=== PATIENT | female | born 1950 | race Caucasian/White ===

== ENCOUNTER → 2017-03-11 | Outpatient (CLI) | payer OTHER ==
--- NOTE | 2017-03-17 13:16 | MG ---
HISTORY: SCREENING Comparison: February 19, 2015 and February 26, 2016 FINDINGS: Bilateral CC and MLO projections of the right and left breast were obtained. Scattered fibroglandula r tissue is seen to be present without significant interval change. No suspicious architectural dist ortion, mass or clustered microcalcifications can be observed to suggest malignancy. No skin thicken ing or nipple retraction is appreciated. No pathological lymphadenopathy can be identified. Benign- appearing calcifications are noted within the right and left breast. IMPRESSION: NO RADIOGRAPHIC EVIDENCE OF MALIGNANCY. ACR CATEGORY 2 - benign findings. FOLLOW-UP EXAM 1 YEAR. Diagnostic CAD was utilized and reviewed. * 0 (ZERO) - ASSESSMENT INCOMPLETE; ADDITIONAL IMAGING IS NEEDED. * 1/1 (ONE) - NEGATIVE. * 2/II (TWO) - BENIGN FINDINGS. * 3/III (THREE) - PROBABLY BENIGN FINDING; SHORT INTERVAL FOLLOW-UP SUGGESTED. * 4/IV (FOUR) - SUSPICIOUS ABNORMALITY; BIOPSY SHOULD BE CONSIDERED. * 5/V (FIVE) - HIGHLY SUSPICIOUS OF MALIGNANCY; BIOPSY SHOULD BE PERFORMED. A NEGATIVE X-RAY REPORT SHOULD NOT DELAY BIOPSY IF A DOMINANT OR CLINICALLY SUSPICIOUS MASS IS PRESENT; 4 TO 8 PERCENT OF CANCERS ARE NOT IDENTIFIED BY X-RAY. A NEGA TIVE REPORT MAY REINFORCE THE CLINICAL IMPRESSION. ADENOSIS AND DENSE BREASTS MAY OBSCURE AN UNDERLY ING NEOPLASM. Reported By:
== END ==
LOC: RAD 09:34
PROVIDERS: ATTEND Obstetrics & Gynecology
DX: Z12.31 Encounter for screening mammogram for malignant neoplasm of breast (principal)
CPT/HCPCS: 77067

== ENCOUNTER 2017-10-14 21:57 | Emergency (ER) | payer OTHER ==
[2017-10-14 22:05] VITALS: BMI 32.5
--- NOTE | 2017-10-14 22:37 | ED.ABDFE ---
HPI - Time seen Time seen: 10:35 - PCP Primary Care Physician: Sylvain RICO - Complaint Chief Complaint Doctors Comments: I agree with statement as written. Chief Complaint:: EPIGASTRIC PAIN, N/V FOR LAST MONTH, JUST GETTING WORSE. HAS SEEN PCP HAD SONOGRAM OF GALL BLADDER, IT WAS NEGATIVE. EVERYTHING I EAT JUST KILLS ME. - Source History Provided: Patient - Mode of arrival Mode of Arrival: Ambulatory - Timing Onset of Chief Complaint: 09/15/17 PMH - PMH Past Medical History: Yes Past Medical History: Coronary Artery Disease, Diabetes, Dyslipidemia, Hypertension Past Surgical History: Yes Surgical History: Angioplasty/Stents, Hysterectomy Past Surgical History Comment: BACK SURGERY, BREAST [id number] - Family History History of Family Medical Conditions: Yes Family Medical History: Diabetes Mellitus, [place], Coronary Artery Disease, Hypertension - Social History Type of Tobacco Use: Cigarettes Alcohol Use: None Do you use any recreational Drugs:: No Lives With: Spouse Lives Where: Home - infectious screening Have you traveled outside the country in the last 6 months?: No Isolation: Standard ROS - Review of Systems Eyes: No Symptoms Reported ENTM: No Symptoms Reported Respiratoy: No Symptoms Reported Cardiovascular: No Symptoms Reported Gastrointestinal/Abdominal: No Symptoms Reported Genitourinary: No Symptoms Reported Neurological: No Symptoms Reported Musculoskeletal: No Symptoms Reported Integumentary: No Symptoms Reported Hematologic/Lymphatic: No Symptoms Reported Endocrine: No Symptoms Reported Psychiatric: No Symptoms Reported All Other Systems: Reviewed and Negative PE - Vital Signs Vitals: Temperature 98.3 F Pulse Rate 80 Respiratory Rate 18 Blood Pressure 172/73 O2 Sat by Pulse Oximetry 95 - General Limitations: No Limitations General Appearance: Alert, In No Apparent Distress - Head Head Exam: Normal Inspection, Atraumatic - Eyes Eye exam: Normal Appearance, PERRL, EOMI - ENT ENT Exam: Normal Exam - Neck Neck Exam: Normal Inspection, Full ROM - Chest Chest Inspection: Normal Inspection, Symmetric Chest Wall Rise - Respiratory Respiratory Exam: Normal Lung Sounds Bilat Respiratory Exam: Bilateral Clear to Auscultation - Cardiovascular Cardiovascular Exam: Regular Rate, Normal Rhythm - Abdominal Exam Abdominal Exam: Normal Inspection, Normal Bowel Sounds Abdominal Tenderness: negative: RUQ, RLQ, LUQ, LLQ, Epigastrium, Suprapubic, Diffuse, Mild, Moderate, Severe, Other - Rectal Rectal Exam: Deferred - Back Back Exam: Normal Inspection - Extremeties Extremities Exam: Normal Inspection, Full ROM - Neurologic Neurological Exam: Alert, Oriented X3, CN II-XII Intact - Psychiatric Psychiatric Exam: Normal Affect - Skin Skin Exam: Warm, Dry, Intact Course - Reevaluation 1st: Unchanged ROR - Labs Reviewed Laboratory Results Reviewed?: Yes (H pylori positive) Result Diagrams: 10/14/17 23:00 10/14/17 23:00 Laboratory: WBC 13.9 X10^3/uL (3.6-10.0) H 10/14/17 23:00 RBC 4.81 X10^6/uL (3.5-5.4) 10/14/17 23:00 Hgb 13.4 g/dL (12.0-16.0) 10/14/17 23:00 Hct 39.8 % (36.0-47.0) 10/14/17 23:00 MCV 82.7 fL (80.0-100.0) 10/14/17 23:00 MCH 27.9 pg (27.0-34.0) 10/14/17 23:00 MCHC 33.7 g/dL (33.0-35.0) 10/14/17 23:00 RDW 16.9 % (11.6-16.5) H 10/14/17 23:00 Plt Count 374 X10^3/uL (150.0-450.0) 10/14/17 23:00 MPV 7.1 fL (7.4-11.0) L 10/14/17 23:00 Neut % (Auto) 75.6 % (42.0-75.0) H 10/14/17 23:00 Lymph % (Auto) 17.4 % (21.0-51.0) L 10/14/17 23:00 [place] % (Auto) 6.1 % (0.0-13.0) 10/14/17 23:00 Eos % (Auto) 0.2 % (0.9-2.9) L 10/14/17 23:00 Baso % (Auto) 0.7 % (0.2-1.0) 10/14/17 23:00 Neut # (Auto) 10.5 x10^3/uL (2.2-4.8) H 10/14/17 23:00 Lymph # (Auto) 2.4 X10^3/uL (1.3-2.9) 10/14/17 23:00 [place] # (Auto) 0.9 x10^3/uL (0.3-0.8) H 10/14/17 23:00 Eos # (Auto) 0.0 x10^3/uL (0.0-0.2) 10/14/17 23:00 Baso # (Auto) 0.1 X10^3/uL (0.0-0.1) 10/14/17 23:00 Absolute Nucleated RBC 0.0 /100WBC 10/14/17 23:00 Sodium 140 mmol/L (136-145) 10/14/17 23:00 Corrected Sodium 142 mmol/L (136-145) 10/14/17 23:00 Potassium 4.1 mmol/L (3.5-5.1) 10/14/17 23:00 Chloride 101 mmol/L (98-107) 10/14/17 23:00 Carbon Dioxide 28.0 mmol/L (21-32) 10/14/17 23:00 BUN 19 mg/dL (7-18) H 10/14/17 23:00 Creatinine 1.15 mg/dL (0.55-1.02) H 10/14/17 23:00 Est GFR (MDRD) Af Amer > 60 (>60) 10/14/17 23:00 Est GFR (MDRD) Non-Af 50 (>60) L 10/14/17 23:00 Glucose 166 mg/dL (65-99) H 10/14/17 23:00 Hemoglobin A1c 6.2 % 10/14/17 23:00 Calcium 8.6 mg/dL (8.5-10.1) 10/14/17 23:00 Corrected Calcium TNP 10/14/17 23:00 Total Bilirubin 0.50 mg/dL (0.2-1.0) 10/14/17 23:00 AST 24 Units/L (15-37) 10/14/17 23:00 ALT 44 Units/L (12-78) 10/14/17 23:00 Alkaline Phosphatase 73 Units/L (46-116) 10/14/17 23:00 C-Reactive Protein 4.50 mg/L (0-3.0) H 10/14/17 23:00 Total Protein 8.5 g/dL (6.4-8.2) H 10/14/17 23:00 Albumin 3.9 g/dL (3.4-5.0) 10/14/17 23:00 Globulin 4.6 g/dL (2.5-4.5) H 10/14/17 23:00 Albumin/Globulin Ratio 0.8 Ratio (1.1-2.1) L 10/14/17 23:00 Amylase 59 Units/L (25-115) 10/14/17 23:00 Lipase 119 Units/L (73-393) 10/14/17 23:00 H. pylori IgG Antibody Positive (NEGATIVE) A 10/14/17 23:00 - XRAY XRAY Interpreted by: Radiologist (Acute Abdominal series: The lungs are clear without consolidation,effusion or penumothorax. The cardiac and mediastinal contours are within normal limits. Flat plate and upright evaluation of the abdomen demonstrates a normal bowel gas pattern. No gross free intraperitoneal air. Approximate 3mm calcification overlies the left renal shadow suggestive of a nonobstructing stone. There is surgical material seen in the upper abdomen suggestive of vascular coils. There a degenerative changes of the spine and pelvis.. No acute cardipulmonary disease, no evidence of acute abdominal pathology, a 3mm calcification overlying the left renal yuen suggesting a nonobstructing stone.) - Diagnosis Discharge Problem: Helicobacter pylori gastritis, non obstructing left renal stone - Discharge Plan Condition: Stable - Follow ups/Referrals Follow ups/Referrals: LEANDRA BEAULIEU [Primary Care Provider] - 3 days - Instructions
[2017-10-14] MEDS ORDERED: BENTYL I.M. INJ 10 MG IM ONE ×2 (22:46→22:48)
--- NOTE | 2017-10-14 23:03 | RAD ---
HISTORY: Epigastric pain, nausea and vomiting Study: Acute abdominal series Comparison: None Findings: The lungs are clear without consolidation, effusion or pneumothorax. The cardiac and mediastinal con tours are within normal limits. Flat plate and upright evaluation of the abdomen demonstrates a normal bowel gas pattern. No gross fr ee intraperitoneal air. Approximate 3 mm calcification overlies the left renal shadow suggestive of a nonobstructing stone. There is surgical material seen in the upper abdomen suggestive of vascular co ils. There are degenerative changes of the spine and pelvis. IMPRESSION: 1. No acute cardiopulmonary disease. 2. No evidence of acute abdominal pathology. 3. 3 mm calcification overlying the left renal shadow suggesting a nonobstructing stone. Reported By:
[2017-10-14 23:10] LABS: BASOPHILS # (AUTO) 0.1 X10^3/uL (0.0-0.1); BASOPHILS % (AUTO) 0.7 % (0.2-1.0); EOSINOPHILS % (AUTO) 0.2 % (0.9-2.9); HEMATOCRIT 39.8 % (36.0-47.0); HEMOGLOBIN 13.4 g/dL (12.0-16.0); LYMPHOCYTES # (AUTO) 2.4 X10^3/uL (1.3-2.9); LYMPHOCYTES % (AUTO) 17.4 % (21.0-51.0); MEAN CORPUSCULAR HEMOGLOBIN 27.9 pg (27.0-34.0); MEAN CORPUSCULAR HGB CONC 33.7 g/dL (33.0-35.0); MEAN CORPUSCULAR VOLUME 82.7 fL (80.0-100.0); MEAN PLATELET VOLUME 7.1 fL (7.4-11.0); MONOCYTES # (AUTO) 0.9 x10^3/uL (0.3-0.8); MONOCYTES % (AUTO) 6.1 % (0.0-13.0); NEUTROPHILS # (AUTO) 10.5 x10^3/uL (2.2-4.8); NEUTROPHILS % (AUTO) 75.6 % (42.0-75.0); PLATELET COUNT 374 X10^3/uL (150.0-450.0); RED BLOOD COUNT 4.81 X10^6/uL (3.5-5.4); RED CELL DISTRIBUTION WIDTH 16.9 % (11.6-16.5); WHITE BLOOD COUNT 13.9 X10^3/uL (3.6-10.0)
[2017-10-14 23:22] LABS: ALANINE AMINOTRANSFERASE 44 Units/L (12-78); ALBUMIN 3.9 g/dL (3.4-5.0); ALKALINE PHOSPHATASE 73 Units/L (46-116); AMYLASE 59 Units/L (25-115); ASPARTATE AMINO TRANSFERASE 24 Units/L (15-37); BLOOD UREA NITROGEN 19 mg/dL (7-18); CALCIUM 8.6 mg/dL (8.5-10.1); CHLORIDE 101 mmol/L (98-107); COR NA(FOR HYPERGLY) 142 mmol/L (136-145); CREATININE 1.15 mg/dL (0.55-1.02); LIPASE 119 Units/L (73-393); SODIUM 140 mmol/L (136-145); TOTAL PROTEIN 8.5 g/dL (6.4-8.2); eGFR BLACK RACES > 60 (>60); eGFR NON BLACK RACES 50 (>60)
[2017-10-15 00:02] VITALS: BP 136/72
== END 2017-10-15 00:03 | disposition home or self-care (01) ==
LOC: ER 22:09
DX: N20.0 Calculus of kidney (principal); B96.81 Helicobacter pylori [H. pylori] as the cause of diseases classified elsewhere; R79.82 Elevated C-reactive protein (CRP)
CPT/HCPCS: 36415; 74022; 80053; 82150; 83036; 83690; 85025; 86140; 86677; 96372; 99283; J0500

== ENCOUNTER 2018-08-30 10:18 | Observation (INO) ==
[2018-08-30] MEDS ORDERED: HumuLIN R SUBCUT PRN (11:33)
[2018-08-30 12:05] LABS: BASOPHILS # (AUTO) 0.1 X10^3/uL (0.0-0.1); EOSINOPHILS # (AUTO) 0.4 x10^3/uL (0.0-0.2); EOSINOPHILS % (AUTO) 4.7 % (0.9-2.9); HEMOGLOBIN 7.3 g/dL (12.0-16.0); LYMPHOCYTES # (AUTO) 2.4 X10^3/uL (1.3-2.9); LYMPHOCYTES % (AUTO) 24.8 % (21.0-51.0); MEAN CORPUSCULAR HEMOGLOBIN 25.7 pg (27.0-34.0); MEAN CORPUSCULAR HGB CONC 33.3 g/dL (33.0-35.0); MEAN CORPUSCULAR VOLUME 77.2 fL (80.0-100.0); MEAN PLATELET VOLUME 7.2 fL (7.4-11.0); MONOCYTES # (AUTO) 0.6 x10^3/uL (0.3-0.8); MONOCYTES % (AUTO) 6.1 % (0.0-13.0); NEUTROPHILS % (AUTO) 63.4 % (42.0-75.0); PLATELET COUNT 279 X10^3/uL (150.0-450.0); RED BLOOD COUNT 2.85 X10^6/uL (3.5-5.4); RED CELL DISTRIBUTION WIDTH 19.2 % (11.6-16.5); WHITE BLOOD COUNT 9.5 X10^3/uL (3.6-10.0)
[2018-08-30 12:26] LABS: ALANINE AMINOTRANSFERASE 18 Units/L (12-78); ALBUMIN 3.1 g/dL (3.4-5.0); ALKALINE PHOSPHATASE 50 Units/L (46-116); ASPARTATE AMINO TRANSFERASE 12 Units/L (15-37); BLOOD UREA NITROGEN 38 mg/dL (7-18); CALCIUM 8.8 mg/dL (8.5-10.1); CARBON DIOXIDE 28.1 mmol/L (21-32); CHLORIDE 101 mmol/L (98-107); COR CA(FOR HYPOALB) 9.5 mg/dL (8.5-10.1); COR NA(FOR HYPERGLY) 139 mmol/L (136-145); CREATINE KINASE 25 Units/L (26-192); CREATINE KINASE MB < 1.0 ng/mL (0-4.0); CREATININE 1.38 mg/dL (0.55-1.02); SODIUM 138 mmol/L (136-145); TOTAL PROTEIN 6.7 g/dL (6.4-8.2); TROPONIN I < 0.02 ng/mL (0-1.5); eGFR NON BLACK RACES 40 (>60)
[2018-08-30 12:27] LABS: BILIRUBIN,URINE NEGATIVE (NEGATIVE); BLOOD/HEMOGLOBIN,URINE NEGATIVE (NEGATIVE); GLUCOSE, URINE NEGATIVE (NEGATIVE); KETONES,URINE NEGATIVE (NEGATIVE); LEUKOCYTE ESTERASE ,URINE NEGATIVE (NEGATIVE); NITRITES,URINE NEGATIVE (NEGATIVE); PROTEIN,URINE NEGATIVE (NEGATIVE); UROBILINOGEN,URINE NORMAL (NORMAL)
[2018-08-30 12:30] LABS: HYPOCHROMASIA 1+; PLATELET MORPHOLOGY COMMENT NORMAL (NORMAL)
[2018-08-30 12:33] LABS: APPEARANCE,URINE CLEAR (CLEAR); COLOR,URINE YELLOW (YELLOW)
[2018-08-30] MEDS: NS 1000 ML 1,000 ML IV SCH (13:22)
[2018-08-30] MEDS: PEPCID 20 MG IV PREMIX* 20 MG/50 ML BAG IV SCH ×2 (13:22→22:22)
[2018-08-30] MEDS ORDERED: NS 500 ML IV 500 ML IV ONE (13:42)
--- NOTE | 2018-08-30 14:16 | RAD ---
HISTORY: Chest pain Study: Single-view chest Comparison: 10/14/[address] of the chest done 06/06/2018. Findings: Trachea is midline. Heart size is normal. There is atherosclerotic calcification and uncoiling aortic arch. Mild hyperinflation of the lungs is seen with stable increased interstitial markings bilaterally. Likely mild COPD. No infiltrate, CHF, pleural fluid or pneumothorax is seen. A few small calcified granulomas are present involving the lungs bilaterally as well as the right lung apex. Osseous structures are intact. IMPRESSION: Findings likely representing mild COPD. Of acute or active disease. Reported By:
[2018-08-30 15:09] VITALS: BMI 28.1
[2018-08-30 15:18] LABS: CKMB % 3.9 % (<4); CREATINE KINASE 26 Units/L (26-192); CREATINE KINASE MB < 1.0 ng/mL (0-4.0); TROPONIN I < 0.02 ng/mL (0-1.5)
[2018-08-30] MEDS: TYLENOL 325 MG TAB PO PRN (15:21)
[2018-08-30] MEDS: BENADRYL INJ 50 MG VIAL IVP PRN (15:22)
[2018-08-30] MEDS ORDERED: NS 250 ML IV 250 ML IV ONE (19:31)
[2018-08-30 20:02] LABS: CKMB % 4.2 % (<4); CREATINE KINASE 24 Units/L (26-192); CREATINE KINASE MB < 1.0 ng/mL (0-4.0); TROPONIN I < 0.02 ng/mL (0-1.5)
[2018-08-30] MEDS: SNACK - Diabetic Appropriate PO SCH (20:05)
[2018-08-31] MEDS: NS 1000 ML 1,000 ML IV SCH ×4 (00:38→21:21)
[2018-08-31 00:54] LABS: HEMATOCRIT 26.4 % (36.0-47.0); HEMOGLOBIN 8.7 g/dL (12.0-16.0)
[2018-08-31 05:25] LABS: BASOPHILS # (AUTO) 0.1 X10^3/uL (0.0-0.1); BASOPHILS % (AUTO) 1.1 % (0.2-1.0); EOSINOPHILS # (AUTO) 0.5 x10^3/uL (0.0-0.2); EOSINOPHILS % (AUTO) 7.4 % (0.9-2.9); HEMATOCRIT 26.3 % (36.0-47.0); HEMOGLOBIN 8.6 g/dL (12.0-16.0); LYMPHOCYTES # (AUTO) 2.1 X10^3/uL (1.3-2.9); LYMPHOCYTES % (AUTO) 29.6 % (21.0-51.0); MEAN CORPUSCULAR HEMOGLOBIN 27.6 pg (27.0-34.0); MEAN CORPUSCULAR HGB CONC 32.8 g/dL (33.0-35.0); MEAN CORPUSCULAR VOLUME 84.1 fL (80.0-100.0); MEAN PLATELET VOLUME 7.3 fL (7.4-11.0); MONOCYTES # (AUTO) 0.6 x10^3/uL (0.3-0.8); MONOCYTES % (AUTO) 8.5 % (0.0-13.0); NEUTROPHILS # (AUTO) 3.8 x10^3/uL (2.2-4.8); NEUTROPHILS % (AUTO) 53.4 % (42.0-75.0); PLATELET COUNT 199 X10^3/uL (150.0-450.0); RED BLOOD COUNT 3.13 X10^6/uL (3.5-5.4); RED CELL DISTRIBUTION WIDTH 21.4 % (11.6-16.5)
[2018-08-31 05:35] LABS: ALBUMIN 2.6 g/dL (3.4-5.0); CALCIUM 8.1 mg/dL (8.5-10.1); COR CA(FOR HYPOALB) 9.2 mg/dL (8.5-10.1); CREATININE 1.18 mg/dL (0.55-1.02); TOTAL PROTEIN 5.7 g/dL (6.4-8.2)
[2018-08-31 05:52] LABS: PLATELET MORPHOLOGY COMMENT NORMAL (NORMAL)
[2018-08-31 05:53] LABS: ANISOCYTOSIS 1+; HYPOCHROMASIA SLIGHT
[2018-08-31] MEDS: PEPCID 20 MG IV PREMIX* 20 MG/50 ML BAG IV SCH ×2 (08:02→21:21)
[2018-08-31] MEDS: PROTONIX INJ 40 MG VIAL IVP SCH ×2 (11:06→21:21)
[2018-08-31] MEDS: LEVSIN/MAALOX/LIDOC VISC PO SCH ×4 (11:07→21:21)
--- NOTE | 2018-08-31 21:09 | PCM.PROG ---
Progress Note - Progress Note for Day of Date of Exam: 08/31/18 - Subjective Subjective: WAS ADMITTED FOR GENERALIZED WEAKNESS AND ANEMIA. SHE REPORTS RECENTLY HAVING STENTS PLACED. SHE WAS PLACED ON PLAVIX AND ASPIRIN AND IS OPEN HEART SURGERY IS ANTICIPATED IN 6 WEEKS. SHE REPORTS BLOOD IN STOOLS SINCE STARTING THE ASPIRIN AND PLAVIX. SHE REVEIVED TWO UNITS OF PACKED RED BLOOD CELLS LAST NIGHT FOR A HEMOGLOBIN OF 7.3. TODAY, SHE IS ALERT AND ORIENTED, LYING IN BED ON MORNING ROUNDS. SHE CONTINUES WITH COMPLAINTS OF GENERALIZED WEAKNESS. ON EXAMINATION, HEART IS REGULAR IN RATE AND RHYTHM. BILATERAL LUNGS ARE NOTED WITH DIMINISHED LUNG SOUNDS THROUGHOUT. ABDOMEN IS ROUND, SOFT, AND NON-TENDER. NORMAL BOWEL SOUNDS NOTED IN ALL QUADRANTS. HER VITALS THIS MORNING ARE 98.1-63-18-97%-139/61. LABS WERE OBTAINED. ABNORMAL LAB VALUES INCLUDE THE FOLLOWING: RBC 3.13, HGB 8.6, ,HCT 26.3, BUN 27, CREATININE 1.18, GLUCOSE 126, CALCIUM 8.1, AST 11, ALK PHOS 43, TOTAL PROTEIN 5.7, ALBUMIN 2.6, STOOL POSITIVE FOR OCCULT BLOOD. TODAY, WE WILL TRANSFER TWO ADDITIONAL UNI TS OF PRBC. WE WILL START PROTONIX 40MG IV BID AND RESUME HOME MEDICATIONS. OTHERWISE, WE WILL FOLLOW UP WITH AM LABS AND CONTINUE TO MONITOR. - Past Medical Family Social History Past Med/Fam/Surg Hx: No changes since H&P Allergies: Allergies Fidwngx-[id number]-Ptk Reductase Inhibitor Allergy (Verified 10/14/17 22:05) - Review of Systems ROS: No change since H&P - Vital Signs and I&O's Vital Signs: Temperature 98.0 F Pulse Rate [Right Brachial] 62 Respiratory Rate 18 Blood Pressure [Right Arm] 141/65 Blood Pressure 136/72 O2 Sat by Pulse Oximetry 96 Intake and Output: Intake & Output 08/29/18 08/30/18 08/31/18 09/01/18 11:59 11:59 11:59 11:59 Intake Total 1432 / 1432 1516 / 1516 Balance 1432 / 1432 1516 / 1516 - Physical Exam Oriented: Normal Eyes: Normal Ear: Normal Nose: Normal Throat: Normal Respiratory: Generalized, Diminished Cardiovascular: Normal. negative: S3, S4, Murmur : Normal Auscultation: Bowel Sounds: Normal Palpation: Normal Tenderness: Normal Skin: Normal Musculoskeletal: Normal Psychiatric: Normal Mood Description: Calm Affect: Normal Speech Pattern: Clear, Appropriate - Laboratory and Diagnostics Result Diagrams: 08/31/18 04:45 08/31/18 04:45 Labs: Laboratory WBC 7.0 X10^3/uL (3.6-10.0) 08/31/18 04:45 RBC 3.13 X10^6/uL (3.5-5.4) L 08/31/18 04:45 Hgb 8.6 g/dL (12.0-16.0) L 08/31/18 04:45 Hct 26.3 % (36.0-47.0) L 08/31/18 04:45 MCV 84.1 fL (80.0-100.0) 08/31/18 04:45 MCH 27.6 pg (27.0-34.0) 08/31/18 04:45 MCHC 32.8 g/dL (33.0-35.0) L 08/31/18 04:45 RDW 21.4 % (11.6-16.5) H 08/31/18 04:45 Plt Count 199 X10^3/uL (150.0-450.0) 08/31/18 04:45 Plt Count Comment Adequate (ADEQUATE) 08/31/18 04:45 MPV 7.3 fL (7.4-11.0) L 08/31/18 04:45 Neut % (Auto) 53.4 % (42.0-75.0) 08/31/18 04:45 Lymph % (Auto) 29.6 % (21.0-51.0) 08/31/18 04:45 [place] % (Auto) 8.5 % (0.0-13.0) 08/31/18 04:45 Eos % (Auto) 7.4 % (0.9-2.9) H 08/31/18 04:45 Baso % (Auto) 1.1 % (0.2-1.0) H 08/31/18 04:45 Neut # (Auto) 3.8 x10^3/uL (2.2-4.8) 08/31/18 04:45 Lymph # (Auto) 2.1 X10^3/uL (1.3-2.9) 08/31/18 04:45 [place] # (Auto) 0.6 x10^3/uL (0.3-0.8) 08/31/18 04:45 Eos # (Auto) 0.5 x10^3/uL (0.0-0.2) H 08/31/18 04:45 Baso # (Auto) 0.1 X10^3/uL (0.0-0.1) 08/31/18 04:45 Absolute Nucleated RBC 0.0 /100WBC 08/31/18 04:45 Plt Morphology Comment Normal (NORMAL) 08/31/18 04:45 RBC Morphology Abnormal (NORMAL) A 08/31/18 04:45 Hypochromasia Slight A 08/31/18 04:45 Anisocytosis 1+ A 08/31/18 04:45 Sodium 141 mmol/L (136-145) 08/31/18 04:45 Corrected Sodium 142 mmol/L (136-145) 08/31/18 04:45 Potassium 3.9 mmol/L (3.5-5.1) 08/31/18 04:45 Chloride 105 mmol/L (98-107) 08/31/18 04:45 Carbon Dioxide 29.0 mmol/L (21-32) 08/31/18 04:45 BUN 27 mg/dL (7-18) H 08/31/18 04:45 Creatinine 1.18 mg/dL (0.55-1.02) H 08/31/18 04:45 Est GFR (MDRD) Af Amer 58 (>60) L 08/31/18 04:45 Est GFR (MDRD) Non-Af 48 (>60) L 08/31/18 04:45 Glucose 126 mg/dL (65-99) H 08/31/18 04:45 POC Glucose (mg/dL) 125 mg/dL (65-99) H 08/31/18 20:30 Calcium 8.1 mg/dL (8.5-10.1) L 08/31/18 04:45 Corrected Calcium 9.2 mg/dL (8.5-10.1) 08/31/18 04:45 Total Bilirubin 0.20 mg/dL (0.2-1.0) 08/31/18 04:45 AST 11 Units/L (15-37) L 08/31/18 04:45 ALT 19 Units/L (12-78) 08/31/18 04:45 Alkaline Phosphatase 43 Units/L (46-116) L 08/31/18 04:45 Creatine Kinase 24 Units/L (26-192) L 08/30/18 19:29 CK-MB (CK-2) < 1.0 ng/mL (0-4.0) 08/30/18 19: CK/CKMB % Calc 4.2 % (<4) 08/30/18 19:29 Troponin I < 0.02 ng/mL (0-1.5) 08/30/18 19:29 Total Protein 5.7 g/dL (6.4-8.2) L 08/31/18 04:45 Albumin 2.6 g/dL (3.4-5.0) L 08/31/18 04:45 Globulin 3.1 g/dL (2.5-4.5) 08/31/18 04:45 Albumin/Globulin Ratio 0.8 Ratio (1.1-2.1) L 08/31/18 04:45 Specimen Type Clean catch urine 08/30/18 12:06 Urine Color Yellow (YELLOW) 08/30/18 12:06 Urine Appearance Clear (CLEAR) 08/30/18 12:06 Urine pH 5.0 (5.0 - 8.0) 08/30/18 12:06 Ur Specific [place] 1.020 (1.000-1.030) 08/30/18 12:06 Urine Protein Negative (NEGATIVE) 08/30/18 12:06 Urine Glucose (UA) Negative (NEGATIVE) 08/30/18 12:06 Urine Ketones Negative (NEGATIVE) 08/30/18 12:06 Urine Occult Blood Negative (NEGATIVE) 08/30/18 12:06 Urine Nitrite Negative (NEGATIVE) 08/30/18 12:06 Urine Bilirubin Negative (NEGATIVE) 08/30/18 12:06 Urine Urobilinogen Normal (NORMAL) 08/30/18 12:06 Ur Leukocyte Esterase Negative (NEGATIVE) 08/30/18 12:06 Stool Description 2g black soft 08/30/18 12:06 Stl Occult Blood (IFOB) Positive (NEGATIVE) A 08/30/18 12:06 Blood Type O POSITIVE 08/30/18 13:53 Antibody Screen Negative 08/30/18 13:53 Crossmatch See Detail 08/30/18 13:53 - Plan (1) Anemia Status: Acute Qualifiers: Anemia type: iron deficiency Iron deficiency anemia type: chronic blood loss Qualified Code(s): D50.0 - Iron deficiency anemia secondary to blood loss (chronic) Plan: TRANSFUSE 2 UNITS PRBC, PROTONIX, PEPCID, GI COCKTAIL, CONTINUE TO MONITOR (2) Generalized weakness Status: Acute (3) Status post angioplasty with stent Status: Acute Plan: PLAVIX 75MG PO DAILY, CONTINUE TO MONITOR
[2018-08-31] MEDS: PLAVIX PO SCH (21:20)
[2018-08-31] MEDS: ESTRACE PO SCH (21:20)
[2018-08-31] MEDS: SNACK - Diabetic Appropriate PO SCH (21:20)
[2018-08-31] MEDS: ZETIA TAB 10 MG PO SCH (21:21)
[2018-08-31] MEDS: BENADRYL INJ 50 MG VIAL IVP PRN (22:41)
[2018-08-31] MEDS: TYLENOL 325 MG TAB PO PRN (22:41)
[2018-08-31] MEDS ORDERED: NS 250 ML IV 250 ML IV ONE (23:09)
[2018-09-01] MEDS: NS 1000 ML 1,000 ML IV SCH (06:07)
[2018-09-01 06:33] LABS: BASOPHILS # (AUTO) 0.1 X10^3/uL (0.0-0.1); EOSINOPHILS # (AUTO) 0.5 x10^3/uL (0.0-0.2); EOSINOPHILS % (AUTO) 7.5 % (0.9-2.9); HEMATOCRIT 30.5 % (36.0-47.0); HEMOGLOBIN 10.2 g/dL (12.0-16.0); LYMPHOCYTES # (AUTO) 2.2 X10^3/uL (1.3-2.9); LYMPHOCYTES % (AUTO) 31.1 % (21.0-51.0); MEAN CORPUSCULAR HEMOGLOBIN 28.3 pg (27.0-34.0); MEAN CORPUSCULAR HGB CONC 33.5 g/dL (33.0-35.0); MEAN CORPUSCULAR VOLUME 84.6 fL (80.0-100.0); MEAN PLATELET VOLUME 7.2 fL (7.4-11.0); MONOCYTES # (AUTO) 0.6 x10^3/uL (0.3-0.8); MONOCYTES % (AUTO) 8.9 % (0.0-13.0); NEUTROPHILS # (AUTO) 3.6 x10^3/uL (2.2-4.8); NEUTROPHILS % (AUTO) 51.5 % (42.0-75.0); PLATELET COUNT 199 X10^3/uL (150.0-450.0); RED CELL DISTRIBUTION WIDTH 19.6 % (11.6-16.5)
[2018-09-01 07:09] LABS: ALANINE AMINOTRANSFERASE 15 Units/L (12-78); ALBUMIN 2.5 g/dL (3.4-5.0); ALKALINE PHOSPHATASE 46 Units/L (46-116); ASPARTATE AMINO TRANSFERASE 12 Units/L (15-37); BLOOD UREA NITROGEN 25 mg/dL (7-18); CARBON DIOXIDE 27.3 mmol/L (21-32); COR CA(FOR HYPOALB) 9.2 mg/dL (8.5-10.1); CREATININE 1.16 mg/dL (0.55-1.02); TOTAL PROTEIN 5.7 g/dL (6.4-8.2); eGFR NON BLACK RACES 49 (>60)
[2018-09-01 07:20] LABS: CHLORIDE 105 mmol/L (98-107); SODIUM 140 mmol/L (136-145)
[2018-09-01] MEDS: PEPCID 20 MG IV PREMIX* 20 MG/50 ML BAG IV SCH (08:34)
[2018-09-01] MEDS: VITAMIN D3 PO SCH ×2 (08:35→08:38)
[2018-09-01] MEDS: ESTRACE PO SCH (08:35)
[2018-09-01] MEDS: PROTONIX INJ 40 MG VIAL IVP SCH (08:35)
[2018-09-01] MEDS: PLAVIX PO SCH (08:36)
[2018-09-01] MEDS: ZETIA TAB 10 MG PO SCH (08:37)
[2018-09-01] MEDS: LEVSIN/MAALOX/LIDOC VISC PO SCH ×2 (08:37→13:22)
[2018-09-01] MEDS ORDERED: HYZAAR 50/12.5 MG PO SCH (09:00)
[2018-09-01] MEDS ORDERED: PROCARDIA XL PO SCH (09:00)
[2018-09-01 13:03] VITALS: BP 137/65
== END 2018-09-01 15:35 | disposition home or self-care (01) ==
LOC: MED/SURG
PROVIDERS: ADMIT Internal Medicine; ATTEND Internal Medicine
DX: J44.9 Chronic obstructive pulmonary disease, unspecified; Z79.01 Long term (current) use of anticoagulants; K55.9 Vascular disorder of intestine, unspecified; I20.9 Angina pectoris, unspecified; R94.4 Abnormal results of kidney function studies; D50.0 Iron deficiency anemia secondary to blood loss (chronic); Z95.5 Presence of coronary angioplasty implant and graft; R07.89 Other chest pain; K92.1 Melena; R94.31 Abnormal electrocardiogram [ECG] [EKG]; E11.65 Type 2 diabetes mellitus with hyperglycemia; R53.1 Weakness
CPT/HCPCS: 36415; 36430; 71010; 71045; 80053; 81003; 82270; 82550; 82553; 84484; 85014; 85018; 85025; 86850; 86900; 86901; 86922; 93005; 94760; A4222; C9113; P9016; S0028; G0378; J1200; J3490; J7030; J7040; J7050

== ENCOUNTER 2019-09-15 12:10 | Inpatient (IN) ==
[2019-09-15 13:29] LABS: BASOPHILS # (AUTO) 0.1 X10^3/uL (0.0-0.1); BASOPHILS % (AUTO) 1.2 % (0.2-1.0); EOSINOPHILS # (AUTO) 0.1 x10^3/uL (0.0-0.2); LYMPHOCYTES # (AUTO) 1.7 X10^3/uL (1.3-2.9); LYMPHOCYTES % (AUTO) 26.9 % (21.0-51.0); MEAN CORPUSCULAR HEMOGLOBIN 22.6 pg (27.0-34.0); MEAN CORPUSCULAR HGB CONC 30.7 g/dL (33.0-35.0); MEAN CORPUSCULAR VOLUME 73.8 fL (80.0-100.0); MONOCYTES # (AUTO) 0.4 x10^3/uL (0.3-0.8); MONOCYTES % (AUTO) 6.9 % (0.0-13.0); PLATELET COUNT 204 X10^3/uL (150.0-450.0); RED BLOOD COUNT 2.45 X10^6/uL (3.5-5.4); RED CELL DISTRIBUTION WIDTH 19.1 % (11.6-16.5); WHITE BLOOD COUNT 6.3 X10^3/uL (3.6-10.0)
[2019-09-15 13:34] LABS: HEMOGLOBIN 5.5 g/dL (12.0-16.0)
[2019-09-15 13:41] LABS: ALBUMIN 3.3 g/dL (3.4-5.0); CALCIUM 8.2 mg/dL (8.5-10.1); CARBON DIOXIDE 28.9 mmol/L (21-32); COR CA(FOR HYPOALB) 8.8 mg/dL (8.5-10.1); CREATININE 1.24 mg/dL (0.55-1.02)
[2019-09-15 13:46] LABS: PLATELET MORPHOLOGY COMMENT NORMAL (NORMAL)
[2019-09-15 13:47] LABS: HYPOCHROMASIA 1+; MICROCYTOSIS SLIGHT
[2019-09-15] MEDS: PROTONIX INJ 40 MG VIAL IVP SCH ×2 (14:31→22:29)
[2019-09-15] MEDS: NS 1000 ML 1,000 ML IV SCH (14:31)
[2019-09-15] MEDS: PEPCID 20 MG IV PREMIX* 20 MG/50 ML BAG IV SCH ×2 (14:31→22:29)
[2019-09-15] MEDS: BENADRYL INJ 50 MG VIAL IVP PRN (15:15)
[2019-09-15] MEDS: TYLENOL 325 MG TAB PO PRN (15:52)
[2019-09-15] MEDS: NS 500 ML IV 500 ML IV ONE (16:15)
[2019-09-15 16:40] VITALS: BMI 33.6
[2019-09-15] MEDS: ATIVAN TAB 1 MG PO PRN (20:34)
[2019-09-15] MEDS: COREG TAB 12.5 MG PO SCH (20:35)
[2019-09-15 23:54] LABS: HEMATOCRIT 20.9 % (36.0-47.0)
[2019-09-16 05:49] LABS: BASOPHILS # (AUTO) 0.1 X10^3/uL (0.0-0.1); BASOPHILS % (AUTO) 1.7 % (0.2-1.0); EOSINOPHILS # (AUTO) 0.2 x10^3/uL (0.0-0.2); EOSINOPHILS % (AUTO) 3.9 % (0.9-2.9); HEMATOCRIT 21.8 % (36.0-47.0); LYMPHOCYTES # (AUTO) 1.6 X10^3/uL (1.3-2.9); LYMPHOCYTES % (AUTO) 29.8 % (21.0-51.0); MEAN CORPUSCULAR HEMOGLOBIN 25.5 pg (27.0-34.0); MEAN CORPUSCULAR HGB CONC 32.1 g/dL (33.0-35.0); MEAN CORPUSCULAR VOLUME 79.4 fL (80.0-100.0); MEAN PLATELET VOLUME 7.8 fL (7.4-11.0); MONOCYTES # (AUTO) 0.6 x10^3/uL (0.3-0.8); MONOCYTES % (AUTO) 10.2 % (0.0-13.0); NEUTROPHILS # (AUTO) 2.9 x10^3/uL (2.2-4.8); NEUTROPHILS % (AUTO) 54.4 % (42.0-75.0); PLATELET COUNT 149 X10^3/uL (150.0-450.0); RED BLOOD COUNT 2.75 X10^6/uL (3.5-5.4); RED CELL DISTRIBUTION WIDTH 19.2 % (11.6-16.5); WHITE BLOOD COUNT 5.4 X10^3/uL (3.6-10.0)
[2019-09-16 06:04] LABS: ALBUMIN 2.7 g/dL (3.4-5.0); CALCIUM 7.5 mg/dL (8.5-10.1); CARBON DIOXIDE 26.6 mmol/L (21-32); COR CA(FOR HYPOALB) 8.5 mg/dL (8.5-10.1); CREATININE 1.34 mg/dL (0.55-1.02); TOTAL PROTEIN 5.9 g/dL (6.4-8.2)
[2019-09-16 06:09] LABS: ANISOCYTOSIS SLIGHT; HYPOCHROMASIA 1+; PLATELET MORPHOLOGY COMMENT NORMAL (NORMAL)
[2019-09-16] MEDS: COREG TAB 12.5 MG PO SCH ×2 (09:55→20:34)
[2019-09-16] MEDS: PEPCID 20 MG IV PREMIX* 20 MG/50 ML BAG IV SCH (09:55)
[2019-09-16] MEDS: PROTONIX INJ 40 MG VIAL IVP SCH ×2 (09:55→20:35)
[2019-09-16] MEDS: NS 1000 ML 1,000 ML IV SCH ×2 (09:57→15:24)
[2019-09-16] MEDS ORDERED: K-RIDER 10 MEQ/NS 100 ML 10 MEQ/100 ML BAG IV PRN (10:06)
[2019-09-16] MEDS ORDERED: POTASSIUM CHLORIDE LIQ 20 MEQ UDC PO PRN (10:06)
[2019-09-16] MEDS ORDERED: POTASSIUM CHL 60 MEQ/NS 0.45% 500 ML IV PRN (10:06)
[2019-09-16] MEDS ORDERED: MICRO K EXTEN CAP 10 MEQ PO PRN (10:06)
[2019-09-16] MEDS ORDERED: POTASSIUM CHL 40 MEQ/NS 0.45% 500 ML IV PRN (10:06)
[2019-09-16] MEDS ORDERED: KLOR-CON PO PRN (10:06)
[2019-09-16] MEDS ORDERED: K-DUR TAB 20 MEQ PO ONE (10:09)
[2019-09-16] MEDS: K-DUR TAB 20 MEQ PO PRN ×2 (10:11→10:19)
[2019-09-16] MEDS: BENADRYL INJ 50 MG VIAL IVP PRN (10:40)
[2019-09-16] MEDS: TYLENOL 325 MG TAB PO PRN (10:41)
[2019-09-16] MEDS ORDERED: NS 500 ML IV 500 ML IV ONE (10:52)
[2019-09-16] MEDS: ATIVAN TAB 1 MG PO PRN ×2 (11:26→23:10)
[2019-09-16] MEDS: NS 500 ML IV 500 ML IV ONE (11:28)
[2019-09-16] MEDS: PROCARDIA XL PO SCH (18:27)
[2019-09-16 19:26] LABS: HEMATOCRIT 31.6 % (36.0-47.0); HEMOGLOBIN 10.4 g/dL (12.0-16.0)
[2019-09-16] MEDS: PEPCID TAB 20 MG PO SCH (20:35)
[2019-09-17] MEDS: NS 1000 ML 1,000 ML IV SCH ×3 (04:00→17:30)
[2019-09-17 06:09] LABS: BASOPHILS # (AUTO) 0.1 X10^3/uL (0.0-0.1); BASOPHILS % (AUTO) 1.2 % (0.2-1.0); EOSINOPHILS # (AUTO) 0.3 x10^3/uL (0.0-0.2); EOSINOPHILS % (AUTO) 4.1 % (0.9-2.9); HEMATOCRIT 30.4 % (36.0-47.0); HEMOGLOBIN 9.9 g/dL (12.0-16.0); LYMPHOCYTES # (AUTO) 1.8 X10^3/uL (1.3-2.9); LYMPHOCYTES % (AUTO) 27.1 % (21.0-51.0); MEAN CORPUSCULAR HEMOGLOBIN 27.1 pg (27.0-34.0); MEAN CORPUSCULAR HGB CONC 32.8 g/dL (33.0-35.0); MEAN CORPUSCULAR VOLUME 82.8 fL (80.0-100.0); MONOCYTES # (AUTO) 0.6 x10^3/uL (0.3-0.8); MONOCYTES % (AUTO) 9.8 % (0.0-13.0); NEUTROPHILS # (AUTO) 3.8 x10^3/uL (2.2-4.8); NEUTROPHILS % (AUTO) 57.8 % (42.0-75.0); PLATELET COUNT 138 X10^3/uL (150.0-450.0); RED BLOOD COUNT 3.67 X10^6/uL (3.5-5.4); WHITE BLOOD COUNT 6.6 X10^3/uL (3.6-10.0)
[2019-09-17 06:25] LABS: ALBUMIN 2.9 g/dL (3.4-5.0); CALCIUM 7.8 mg/dL (8.5-10.1); CARBON DIOXIDE 26.2 mmol/L (21-32); COR CA(FOR HYPOALB) 8.7 mg/dL (8.5-10.1); CREATININE 1.24 mg/dL (0.55-1.02); TOTAL PROTEIN 6.1 g/dL (6.4-8.2)
[2019-09-17] MEDS: PROTONIX INJ 40 MG VIAL IVP SCH ×2 (09:11→20:55)
[2019-09-17] MEDS: PROCARDIA XL PO SCH (09:11)
[2019-09-17] MEDS: PEPCID TAB 20 MG PO SCH ×2 (09:12→20:55)
[2019-09-17] MEDS: COREG TAB 12.5 MG PO SCH ×2 (09:12→20:54)
--- NOTE | 2019-09-17 16:42 | DR.UPDATE ---
H&P Update History and Physical Update: History and Physical reviewed and patient examined. Changes noted: Yes with the following: WAS SEEN IN THE OFFICE WITH COMPLAINTS OF WEAKNESS AND SHORTNESS OF BREATH. OUTPATIENT LABS WERE OBTAINED AND REVEALED A HEMOGLOBIN OF 5.4. SHE HAS A HISTORY OF BLEEDING AVMs. SHE WAS ADMITTED FOR FURTHER EVALUATION AND TREATMENT. ON ADMISSION, VITALS WERE 98.3-90-18-93%-108/59. LABS WERE OBTAINED. ABNORMAL LAB VALUES INCLUDED THE FOLLOWING: RBC 2.45, HGB 5.5, HCT 18.0, CREATININE 1.24, GLUCOSE 132, CALCIUM 8.2, AST 12, ALBUMIN 3.3. STOOLS POSITIVE FOR OCCULT BLOOD. WE TYPE AND SCREENED PATIENT AND THEN TRANSFUSED TWO UNITS OF PRBC. ON MORNING ROUNDS OF , HEMOGLOBIN IS NOTED TO BE 7.0. WE WILL TRANSFUSE TWO ADDITIONAL UNITS TODAY AND CONTINUE WITH CURRENT PLAN OF CARE. OTHERWISE, WE WILL FOLLOW UP WITH AM LABS AND CONTINUE TO MONITOR. Prescription drug monitoring program results: PDMP reviewed and no concerns identified H&P Reviewed: Yes Patient was examined?: Yes
[2019-09-17] MEDS: ATIVAN TAB 1 MG PO PRN (20:56)
--- NOTE | 2019-09-17 22:37 | PCM.PROG ---
Progress Note - Progress Note for Day of Date of Exam: 09/17/19 - Subjective Subjective: IS BEING TREATED FOR ANEMIA. SHE HAS RECEIVED FOUR UNITS OF PRBC SINCE ADMISSION. TODAY, SHE IS ALERT AND ORIENTED, SITTING UP IN BED ON MORNING ROUNDS. SHE CONTINUES WITH WEAKNESS, BUT REPORTS SLIGHT IMPROVEMENT IN SYMPTOMS SINCE YESTERDAY. ON EXAMINATION, HEART IS REGULAR IN RATE AND RHYTHM. BILATERAL LUNGS ARE NOTED WITH DIMINISHED LUNG SOUNDS THROUGHOUT. ABDOMEN IS ROUND, SOFT, AND NON-TENDER WITH NORMAL BOWEL SOUNDS NOTED IN ALL QUADRANTS. HER VITALS THIS MORNING ARE: 98.0-65-14-90%RA-130/58. LABS WERE OBTAINED. ABNORMAL LAB VALUES INCLUDE THE FOLLOWING: HGB 9.9, HCT 30.4, PLT COUNT 138, CHLORIDE 108, CREATININE 1.24, GLUCOSE 134, CALCIUM 7.8, ALK PHOS 40, TOTAL PROTEIN 6.1, ALBUMIN 2.9. SHE IS CURRENTLY RECEIVING PEPCID, IV PROTONIX, NS AT 80 ML/HR, THE POTASSIUM AND MAGNESIUM PROTOCOLS, AND HOME MEDICATIONS WERE RESUMED. WE WILL CONTINUE WITH CURRENT PLAN OF CARE AND MONITOR H&H TODAY. OTHERWISE, WE WILL FOLLOW UP WITH AM LABS AND CONTINUE TO MONITOR. - Past Medical Family Social History Past Med/Fam/Surg Hx: No changes since H&P Allergies: Allergies Cenqyfe-Lqh-Kzz Reductase Inhibitor Allergy (Verified 10/14/17 22:05) - Review of Systems ROS: No change since H&P - Vital Signs and I&O's Vital Signs: Temperature 98.1 F Pulse Rate 68 Respiratory Rate 18 Blood Pressure [Right Arm] 137/65 Blood Pressure 148/68 O2 Sat by Pulse Oximetry 96 Intake and Output: Intake & Output 09/15/19 09/16/19 09/17/19 09/18/19 11:59 11:59 11:59 11:59 Intake Total 2409 / 2409 3031 / 3031 1273 / 1273 Output Total / Balance 2406 / 2406 3031 / 3031 1273 / 1273 - Physical Exam Oriented: Normal Eyes: Normal Ear: Normal Nose: Normal Throat: Normal Respiratory: Generalized, Diminished Cardiovascular: Normal : Normal Auscultation: Bowel Sounds: Normal Palpation: Normal Tenderness: Normal Skin: Normal Musculoskeletal: Normal Psychiatric: Normal Mood Description: Calm Affect: Normal Speech Pattern: Clear, Appropriate - Laboratory and Diagnostics Result Diagrams: 09/17/19 04:53 09/17/19 04:53 Labs: Laboratory WBC 6.6 X10^3/uL (3.6-10.0) 09/17/19 04:53 RBC 3.67 X10^6/uL (3.5-5.4) 09/17/19 04:53 Hgb 9.9 g/dL (12.0-16.0) L 09/17/19 04:53 Hct 30.4 % (36.0-47.0) L 09/17/19 04:53 MCV 82.8 fL (80.0-100.0) 09/17/19 04:53 MCH 27.1 pg (27.0-34.0) 09/17/19 04:53 MCHC 32.8 g/dL (33.0-35.0) L 09/17/19 04:53 RDW 19.0 % (11.6-16.5) H 09/17/19 04:53 Plt Count 138 X10^3/uL (150.0-450.0) L 09/17/19 04:53 Plt Count Comment Adequate (ADEQUATE) 09/16/19 04:29 MPV 8.0 fL (7.4-11.0) 09/17/19 04:53 Neut % (Auto) 57.8 % (42.0-75.0) 09/17/19 04:53 Lymph % (Auto) 27.1 % (21.0-51.0) 09/17/19 04:53 [place] % (Auto) 9.8 % (0.0-13.0) 09/17/19 04:53 Eos % (Auto) 4.1 % (0.9-2.9) H 09/17/19 04:53 Baso % (Auto) 1.2 % (0.2-1.0) H 09/17/19 04:53 Neut # (Auto) 3.8 x10^3/uL (2.2-4.8) 09/17/19 04:53 Lymph # (Auto) 1.8 X10^3/uL (1.3-2.9) 09/17/19 04:53 [place] # (Auto) 0.6 x10^3/uL (0.3-0.8) 09/17/19 04:53 Eos # (Auto) 0.3 x10^3/uL (0.0-0.2) H 09/17/19 04:53 Baso # (Auto) 0.1 X10^3/uL (0.0-0.1) 09/17/19 04:53 Absolute Nucleated RBC 0.3 /100WBC 09/17/19 04:53 Plt Morphology Comment Normal (NORMAL) 09/16/19 04:29 RBC Morphology Abnormal (NORMAL) A 09/16/19 04:29 Hypochromasia 1+ A 09/16/19 04:29 Anisocytosis Slight A 09/16/19 04:29 Microcytosis Slight A 09/15/19 13:13 Sodium 142 mmol/L (136-145) 09/17/19 04:53 Corrected Sodium 143 mmol/L (136-145) 09/17/19 04:53 Potassium 3.7 mmol/L (3.5-5.1) 09/17/19 04:53 Chloride 108 mmol/L (98-107) H 09/17/19 04:53 Carbon Dioxide 26.2 mmol/L (21-32) 09/17/19 04:53 BUN 16 mg/dL (7-18) 09/17/19 04:53 Creatinine 1.24 mg/dL (0.55-1.02) H 09/17/19 04:53 Est GFR (MDRD) Af Amer 55 (>60) L 09/17/19 04:53 Est GFR (MDRD) Non-Af 45 (>60) L 09/17/19 04:53 Glucose 134 mg/dL (65-99) H 09/17/19 04:53 POC Glucose (mg/dL) 117 mg/dL (65-99) H 09/17/19 20:09 Calcium 7.8 mg/dL (8.5-10.1) L 09/17/19 04:53 Corrected Calcium 8.7 mg/dL (8.5-10.1) 09/17/19 04:53 Magnesium 1.9 mg/dL (1.7-2.9) 09/16/19 04:29 Total Bilirubin 0.50 mg/dL (0.2-1.0) 09/17/19 04:53 AST 20 Units/L (15-37) 09/17/19 04:53 ALT 23 Units/L (12-78) 09/17/19 04:53 Alkaline Phosphatase 40 Units/L (46-116) L 09/17/19 04:53 Total Protein 6.1 g/dL (6.4-8.2) L 09/17/19 04:53 Albumin 2.9 g/dL (3.4-5.0) L 09/17/19 04:53 Globulin 3.2 g/dL (2.5-4.5) 09/17/19 04:53 Albumin/Globulin Ratio 0.9 Ratio (1.1-2.1) L 09/17/19 04:53 Vitamin B12 363 pg/mL (193-986) 09/16/19 04:29 Folate 18.8 ng/mL (>8.6) 09/16/19 04:29 Stool Description 150g,black,solid 09/16/19 08:14 Stl Occult Blood (IFOB) Positive (NEGATIVE) A 09/16/19 08:14 Blood Type O POSITIVE 09/15/19 13:13 Antibody Screen Negative 09/15/19 13:13 Crossmatch See Detail 09/15/19 13:13 - Plan (1) Anemia Status: Acute Qualifiers: Anemia type: unspecified type Qualified Code(s): D64.9 - Anemia, unspecified Plan: PEPCID, IV PROTONIX, NS AT 80 ML/HR, CONTINUE TO MONITOR
[2019-09-18 06:15] LABS: ALBUMIN 2.9 g/dL (3.4-5.0); CALCIUM 8.4 mg/dL (8.5-10.1); CARBON DIOXIDE 27.3 mmol/L (21-32); COR CA(FOR HYPOALB) 9.3 mg/dL (8.5-10.1); CREATININE 1.27 mg/dL (0.55-1.02)
[2019-09-18] MEDS: NS 1000 ML 1,000 ML IV SCH (06:15)
[2019-09-18 06:19] LABS: BASOPHILS # (AUTO) 0.1 X10^3/uL (0.0-0.1); BASOPHILS % (AUTO) 1.1 % (0.2-1.0); EOSINOPHILS # (AUTO) 0.2 x10^3/uL (0.0-0.2); EOSINOPHILS % (AUTO) 3.2 % (0.9-2.9); HEMATOCRIT 28.6 % (36.0-47.0); HEMOGLOBIN 9.6 g/dL (12.0-16.0); LYMPHOCYTES # (AUTO) 1.6 X10^3/uL (1.3-2.9); LYMPHOCYTES % (AUTO) 21.7 % (21.0-51.0); MEAN CORPUSCULAR HEMOGLOBIN 27.4 pg (27.0-34.0); MEAN CORPUSCULAR HGB CONC 33.5 g/dL (33.0-35.0); MEAN CORPUSCULAR VOLUME 81.9 fL (80.0-100.0); MEAN PLATELET VOLUME 7.7 fL (7.4-11.0); MONOCYTES # (AUTO) 0.7 x10^3/uL (0.3-0.8); MONOCYTES % (AUTO) 9.9 % (0.0-13.0); NEUTROPHILS # (AUTO) 4.7 x10^3/uL (2.2-4.8); NEUTROPHILS % (AUTO) 64.1 % (42.0-75.0); PLATELET COUNT 125 X10^3/uL (150.0-450.0); RED CELL DISTRIBUTION WIDTH 19.9 % (11.6-16.5); WHITE BLOOD COUNT 7.3 X10^3/uL (3.6-10.0)
[2019-09-18] MEDS: COREG TAB 12.5 MG PO SCH (07:59)
[2019-09-18] MEDS: PROTONIX INJ 40 MG VIAL IVP SCH (08:00)
[2019-09-18] MEDS: K-DUR TAB 20 MEQ PO PRN (08:00)
[2019-09-18] MEDS: PROCARDIA XL PO SCH (08:00)
[2019-09-18] MEDS ORDERED: PEPCID TAB 20 MG PO SCH (09:00)
[2019-09-18] MEDS ORDERED: PREVNAR 13 IM ONE (09:10)
[2019-09-18 09:13] VITALS: BP 161/66
== END 2019-09-18 11:40 | disposition home or self-care (01) | DRG 812 ==
LOC: ICU 12:20
PROVIDERS: ADMIT Internal Medicine; ATTEND Internal Medicine
DX: R53.1 Weakness; R06.02 Shortness of breath; K92.1 Melena; D64.9 Anemia, unspecified; Z23 Encounter for immunization
CPT/HCPCS: 36415; 36430; 80053; 82270; 82607; 82746; 83735; 85014; 85018; 85025; 86850; 86900; 86901; 86922; 90670; A4216; A4222; C9113; J1200; J3490; J7030; J7040; P9016; S0028

== ENCOUNTER 2020-01-24 11:06 | Inpatient (IN) ==
[2020-01-24] MEDS ORDERED: BENADRYL INJ 50 MG VIAL IVP ONE (11:47)
[2020-01-24] MEDS ORDERED: PEPCID 20 MG IV PREMIX* 20 MG/50 ML BAG IV SCH (12:00)
[2020-01-24 12:26] LABS: ALBUMIN 2.9 g/dL (3.4-5.0); CALCIUM 8.4 mg/dL (8.5-10.1); CARBON DIOXIDE 28.1 mmol/L (21-32); COR CA(FOR HYPOALB) 9.3 mg/dL (8.5-10.1); CREATININE 1.33 mg/dL (0.55-1.02); TOTAL PROTEIN 6.7 g/dL (6.4-8.2)
[2020-01-24] MEDS: PROTONIX INJ 40 MG VIAL IVP SCH ×2 (12:45→20:58)
[2020-01-24] MEDS: NS 1000 ML 1,000 ML IV SCH (12:45)
[2020-01-24 13:16] VITALS: BMI 32.4
[2020-01-24] MEDS ORDERED: BENADRYL INJ 50 MG VIAL ONE (14:30)
[2020-01-24] MEDS ORDERED: NS 500 ML IV 500 ML IV ONE (14:42)
[2020-01-24] MEDS: ATIVAN TAB 1 MG PO PRN (15:12)
[2020-01-24] MEDS ORDERED: PROVENTIL NEB TX 0.083% 2.5MG/ 3ML NEB PRN (16:19)
[2020-01-24] MEDS ORDERED: MICRO K EXTEN CAP 10 MEQ PO PRN (18:39)
[2020-01-24] MEDS ORDERED: POTASSIUM CHL 60 MEQ/NS 0.45% 500 ML IV PRN (18:39)
[2020-01-24] MEDS ORDERED: POTASSIUM CHLORIDE LIQ 20 MEQ UDC PO PRN (18:39)
[2020-01-24] MEDS ORDERED: POTASSIUM CHL 40 MEQ/NS 0.45% 500 ML IV PRN (18:39)
[2020-01-24] MEDS ORDERED: KLOR-CON PO PRN (18:39)
[2020-01-24] MEDS ORDERED: K-RIDER 10 MEQ/NS 100 ML 10 MEQ/100 ML BAG IV PRN (18:39)
[2020-01-24] MEDS ORDERED: K-DUR TAB 20 MEQ PO PRN (19:38)
[2020-01-24] MEDS: K-DUR TAB 20 MEQ PO PRN (20:59)
[2020-01-24] MEDS: MAGNESIUM SULFATE 1 GRAM/100 mL PREMIX 1 GM/100 ML BAG IV PRN ×2 (21:15→22:30)
[2020-01-24 22:05] LABS: HEMATOCRIT 25.1 % (36.0-47.0); HEMOGLOBIN 8.2 g/dL (12.0-16.0)
[2020-01-24] MEDS: PULMICORT NEB TX 0.5 MG NEB SCH (22:20)
[2020-01-25 05:46] LABS: BASOPHILS # (AUTO) 0.1 X10^3/uL (0.0-0.1); BASOPHILS % (AUTO) 1.2 % (0.2-1.0); EOSINOPHILS # (AUTO) 0.5 x10^3/uL (0.0-0.2); EOSINOPHILS % (AUTO) 5.9 % (0.9-2.9); HEMATOCRIT 25.2 % (36.0-47.0); HEMOGLOBIN 8.2 g/dL (12.0-16.0); LYMPHOCYTES # (AUTO) 1.6 X10^3/uL (1.3-2.9); LYMPHOCYTES % (AUTO) 19.9 % (21.0-51.0); MEAN CORPUSCULAR HEMOGLOBIN 24.7 pg (27.0-34.0); MEAN CORPUSCULAR HGB CONC 32.5 g/dL (33.0-35.0); MEAN PLATELET VOLUME 7.5 fL (7.4-11.0); MONOCYTES # (AUTO) 0.8 x10^3/uL (0.3-0.8); MONOCYTES % (AUTO) 10.6 % (0.0-13.0); NEUTROPHILS # (AUTO) 4.9 x10^3/uL (2.2-4.8); NEUTROPHILS % (AUTO) 62.4 % (42.0-75.0); PLATELET COUNT 248 X10^3/uL (150.0-450.0); RED BLOOD COUNT 3.31 X10^6/uL (3.5-5.4); RED CELL DISTRIBUTION WIDTH 20.8 % (11.6-16.5); WHITE BLOOD COUNT 7.9 X10^3/uL (3.6-10.0)
[2020-01-25 05:56] LABS: ANISOCYTOSIS 1+; HYPOCHROMASIA SLIGHT; PLATELET MORPHOLOGY COMMENT NORMAL (NORMAL)
[2020-01-25 05:57] LABS: ALBUMIN 2.6 g/dL (3.4-5.0); CALCIUM 7.7 mg/dL (8.5-10.1); CARBON DIOXIDE 25.8 mmol/L (21-32); COR CA(FOR HYPOALB) 8.8 mg/dL (8.5-10.1); CREATININE 1.17 mg/dL (0.55-1.02); MAGNESIUM 1.9 mg/dL (1.7-2.9); TOTAL PROTEIN 6.1 g/dL (6.4-8.2)
[2020-01-25] MEDS: MAGNESIUM SULFATE 1 GRAM/100 mL PREMIX 1 GM/100 ML BAG IV PRN (06:35)
[2020-01-25] MEDS: K-DUR TAB 20 MEQ PO PRN (06:36)
[2020-01-25] MEDS: PEPCID 20 MG IV PREMIX* 20 MG/50 ML BAG IV SCH (08:42)
[2020-01-25] MEDS: PROTONIX INJ 40 MG VIAL IVP SCH ×2 (08:43→21:09)
[2020-01-25] MEDS: PULMICORT NEB TX 0.5 MG NEB SCH (09:53)
[2020-01-25] MEDS: NS 1000 ML 1,000 ML IV SCH ×3 (10:20→16:49)
--- NOTE | 2020-01-25 10:42 | DR.H&P ---
H&P - History & Physical for Day of: H&P Date: 01/24/20 - Chief Complaint Chief Complaint: ANEMIA, WEAKNESS, DIZZINESS - History of Present Illness History of Present Illness: IS A 69 YEAR OLD PATIENT OF OURS WHO PRESENTED TO THE HOSPITAL A DIRECT ADMISSION DUE TO ANEMIA. OUTPATIENT LABS WERE OBTAINED ON 01/24/20 AND REVEALED A CRITICAL LOW HGB OF 5.6 AND HCT 18.2. PATIENT REPORTS WEAKNESS AND DIZZINESS. WE ADMITTED PATIENT TO TRANSFUSE PACKED RED BLOOD CELLS. HER PAST MEDICAL HISTORY INCLUDES: CVA, CAD, HTN, STENT, CABG, KIDNEY STONES, ENDOMETRIOSIS, CHRONIC BACK PAIN, DM II, ANEMIA, ANXIETY,DEPRESSION, BLEEDING AVMs, HYSTERECTOMY, AND ORTHOPEDIC SURGERY. ON ARRIVAL TO THE HOSPITAL, VITALS WERE 98.0-84-20-94%RA-145/62. LABS WERE OBTAINED. ABNORMAL LAB VALUES INCLUDE THE FOLLOWING: RBC 2.61, HGB 5.6, HCT 18.2, POTASSIUM 3.2, CREATININE 1.33, GLUCOSE 130, CALCIUM 8.4, IRON 11, FERRITIN 5, AST 12, ALK PHOS 43, ALBUMIN 2.9. STOOL IS NEGATIVE FOR OCCULT BLOOD. SHE WAS STARTED ON NORMAL SALINE AT 75 ML/HR, PEPCID 20MG IV DAILY, PROTONIX 40MG IV BID, THE POTASSIUM AND MAGNESIUM PROTOCOLS, AND HOME MEDICATIONS WERE RESUMED. WE WILL TRANSFUSE TWO UNITS OF PRBC TODAY. OTHERWISE, WE WILL FOLLOW UP WITH AM LABS AND CONTINUE TO MONITOR. TIME SPENT WITH PATIENT FOR EXAMINATION, COUNSELING, AND PLAN OF CARE WAS GREATER THAN 30 MINUTES. - Past Medical History Past Medical History: Coronary Artery Disease, Diabetes, Dyslipidemia, Hypertension Additional Medical History: BLEEDING AVMs - Past Surgical History Surgical History: CABG/Valve Surgery, Hysterectomy, Ortho Surgery - Family History Family Medical History: Diabetes Mellitus, Cancer, [place], Coronary Artery Disease, Hypertension - Social History Does patient currently use any type of tobacco product: Yes Have you used tobacco products in the last 12 months: Yes Type of Tobacco Use: Cigarettes Does any household member use tobacco: No Alcohol Use: None Drug Use: None - Medications Home Medications: acetaminophen [From Percocet] Allergy (Verified 01/24/20 11:40) oxycodone [From Percocet] Allergy (Verified 01/24/20 11:40) Eivxabp-Lfh-Vho Reductase Inhibitor Allergy (Verified 10/14/17 22:05) CONTINUE taking the following medications albuterol sulfate 1.25 mg INHALATION QID PRN 01/24/20 [History] budesonide-formoterol [Symbicort] 1 puff INHALATION BID 01/24/20 [History] clopidogrel 75 mg PO DAILY 01/24/20 [History] - Review of Systems Constitutional: See HPI, Weakness Eyes: No Symptoms Reported ENT: No Symptoms Reported Respiratory: No Symptoms Reported Cardiovascular: Light Headedness Gastrointestinal: No Symptoms Reported Genitourinary: No Symptoms Reported Musculoskeletal: No Symptoms Reported Skin: No Symptoms Reported Neurological: Weakness - Physical Exam Vital Signs: Temperature 97.6 F Pulse Rate [Right Brachial] 71 Pulse Rate 80 Respiratory Rate 20 Blood Pressure [Right Arm] 172/72 Blood Pressure 161/66 O2 Sat by Pulse Oximetry 96 Oriented: Normal Eyes: Normal Ear: Normal Nose: Normal Throat: Normal Respiratory: Diminished Throughout Cardiovascular: Normal : Normal Auscultation: Bowel Sounds: Normal Palpation: Normal Tenderness: Normal Skin: Normal Musculoskeletal: Normal Psychiatric: Normal Mood Description: Calm Affect: Normal Speech Pattern: Clear - Assessment/Plan (1) Anemia Qualifiers: Anemia type: iron deficiency Iron deficiency anemia type: chronic blood loss Qualified Code(s): D50.0 - Iron deficiency anemia secondary to blood loss (chronic) Status: Acute Plan: admit, transfuse two units of packed red blood cells, NORMAL SALINE AT 75 ML/HR, PEPCID 20MG IV DAILY, PROTONIX 40MG IV BID, THE POTASSIUM AND MAGNESIUM PROTOCOLS, AND HOME MEDICATIONS WERE RESUMED - Allergies Allergies/Adverse Reactions: Allergies Allergy/AdvReac Type Severity Reaction Status Date / Time acetaminophen [From Percocet] Allergy Verified 01/24/20 11:40 oxycodone [From Percocet] Allergy Verified 01/24/20 11:40 Wpmoicy-Iuu-Wjj Reductase Allergy Verified 10/14/17 22:05 Inhibitor
[2020-01-25] MEDS ORDERED: PROCARDIA XL PO ONE (18:02)
[2020-01-25] MEDS ORDERED: PROCARDIA XL 24-hr PO ONE (18:02)
[2020-01-25] MEDS: PROCARDIA XL PO SCH (18:07)
[2020-01-25] MEDS: PROCARDIA XL 24-hr PO SCH (18:07)
[2020-01-25] MEDS ORDERED: COREG TAB 12.5 MG PO ONE (19:54)
[2020-01-25] MEDS: COREG TAB 12.5 MG PO SCH (21:06)
[2020-01-25] MEDS: SNACK - Diabetic Appropriate PO SCH (21:06)
[2020-01-25] MEDS: ATIVAN TAB 1 MG PO PRN (21:09)
[2020-01-25] MEDS ORDERED: NORMODYNE INJ 20 MG VIAL IVP PRN (22:24)
[2020-01-26] MEDS: NS 1000 ML 1,000 ML IV SCH ×3 (04:36→21:47)
[2020-01-26 06:21] LABS: ALBUMIN 2.6 g/dL (3.4-5.0); CALCIUM 7.8 mg/dL (8.5-10.1); CARBON DIOXIDE 25.9 mmol/L (21-32); COR CA(FOR HYPOALB) 8.9 mg/dL (8.5-10.1); CREATININE 1.32 mg/dL (0.55-1.02); TOTAL PROTEIN 6.2 g/dL (6.4-8.2)
[2020-01-26 06:23] LABS: BASOPHILS # (AUTO) 0.1 X10^3/uL (0.0-0.1); BASOPHILS % (AUTO) 1.1 % (0.2-1.0); EOSINOPHILS # (AUTO) 0.4 x10^3/uL (0.0-0.2); EOSINOPHILS % (AUTO) 4.4 % (0.9-2.9); HEMATOCRIT 25.3 % (36.0-47.0); HEMOGLOBIN 8.2 g/dL (12.0-16.0); LYMPHOCYTES # (AUTO) 1.3 X10^3/uL (1.3-2.9); LYMPHOCYTES % (AUTO) 13.1 % (21.0-51.0); MEAN CORPUSCULAR HEMOGLOBIN 24.4 pg (27.0-34.0); MEAN CORPUSCULAR HGB CONC 32.4 g/dL (33.0-35.0); MEAN CORPUSCULAR VOLUME 75.4 fL (80.0-100.0); MEAN PLATELET VOLUME 7.1 fL (7.4-11.0); MONOCYTES # (AUTO) 0.8 x10^3/uL (0.3-0.8); MONOCYTES % (AUTO) 8.1 % (0.0-13.0); NEUTROPHILS # (AUTO) 7.4 x10^3/uL (2.2-4.8); NEUTROPHILS % (AUTO) 73.3 % (42.0-75.0); PLATELET COUNT 256 X10^3/uL (150.0-450.0); RED BLOOD COUNT 3.36 X10^6/uL (3.5-5.4); WHITE BLOOD COUNT 10.1 X10^3/uL (3.6-10.0)
[2020-01-26 07:07] LABS: ANISOCYTOSIS 1+; PLATELET MORPHOLOGY COMMENT NORMAL (NORMAL)
[2020-01-26] MEDS: PROCARDIA XL PO SCH (08:37)
[2020-01-26] MEDS: COREG TAB 12.5 MG PO SCH ×2 (08:37→21:49)
[2020-01-26] MEDS: PEPCID 20 MG IV PREMIX* 20 MG/50 ML BAG IV SCH (08:37)
[2020-01-26] MEDS: PROCARDIA XL 24-hr PO SCH (08:38)
[2020-01-26] MEDS: PROTONIX INJ 40 MG VIAL IVP SCH ×2 (08:38→21:00)
[2020-01-26] MEDS: JANUVIA PO SCH (09:25)
--- NOTE | 2020-01-26 12:40 | RAD ---
HISTORYABDOMINAL PAIN HTN, DM, ORTHO, HYSTERECTOMY, SPINE, ENDARDECTOMY, CABGSTUDYKUBCOMPARISONScout from CT dated 06/22/2019FINDINGSThere is large amount of stool throughout the colon. There are some coils in the mid abdomen and a stent in the SMA PA no abnormal intra-abdominal calcificationsNo abnormal dilated small bowel loops.CCSFIOIRMYVlidaidl-fx-huylgw constipation. No abnormal dilated small bowel loops.Electronically signed by: Areli Mario (Jan 26, 2020 12:38:05)
--- NOTE | 2020-01-26 12:45 | RAD ---
HISTORYSOB, LOW 02STUDYCHEST, 1 VIEWCOMPARISONFebruary 2018FINDINGSThe trachea is midline. The cardiac silhouette is unremarkable. Linear densities within the right lung suggests subsegmental atelectasis and/or scarring. Right basilar atelectasis and/or infiltrate cannot be excluded. Postoperative changes of midline sternotomy are noted.IMPRESSIONQuestionable right basilar airspace disease as noted above.Electronically signed by: BUBBA DAVIS (Jan 26, 2020 12:44:00)
[2020-01-26] MEDS ORDERED: COLACE CAP 100 MG PO ONE (14:10)
--- NOTE | 2020-01-26 14:12 | PCM.PROG ---
Progress Note - Progress Note for Day of Date of Exam: 01/25/20 - Subjective Subjective: IS BEING TREATED FOR ANEMIA. SHE RECEIVED TWO UNITS OF PRBC ON ADMISSION. TODAY, SHE IS ALERT AND ORIENTED, LYING IN BED ON MORNING ROUNDS. SHE CONTINUES WITH COMPLAINTS OF GENERALIZED WEAKNESS. ON EXAMINATION, HEART IS REGULAR IN RATE AND RHYTHM. BILATERAL LUNGS ARE NOTED WITH DIMINISHED LUNG SOUNDS THROUGHOUT. ABDOMEN IS ROUND, SOFT, AND NON-TENDER WITH NORMAL BOWEL SOUNDS NOTED IN ALL QUADRANTS. HER VITALS THIS MORNING ARE: 97.6-71-20-96%-172/72. LABS WERE OBTAINED. ABNORMAL LAB VALUES INCLUDE THE FOLLOWING: RBC 3.31, HGB 8.2, HCT 25.2, CREATININE 1.17, GLUCOSE 143, CALCIUM 7.7, ALK PHOS 45, TOTAL PROTEIN 6.1, ALBUMIN 2.6. SHE IS CURRENTLY RECEIVING NORMAL SALINE AT 75 ML/HR, PEPCID 20MG IV DAILY, PROTONIX 40MG IV BID, THE POTASSIUM AND MAGNESIUM PROTOCOLS, AND HOME MEDICATIONS WERE RESUMED. WE WILL CONTINUE WITH CURRENT PLAN OF CARE TODAY. OTHERWISE, WE WILL FOLLOW UP WITH AM LABS AND CONTINUE TO MONITOR. - Past Medical Family Social History Past Med/Fam/Surg Hx: No changes since H&P Allergies: Allergies acetaminophen [From Percocet] Allergy (Verified 01/24/20 11:40) oxycodone [From Percocet] Allergy (Verified 01/24/20 11:40) Khypcnp-Xxb-Aoo Reductase Inhibitor Allergy (Verified 10/14/17 22:05) - Review of Systems ROS: No change since H&P - Vital Signs and I&O's Vital Signs: Temperature 98.2 F Pulse Rate [Right Brachial] 73 Pulse Rate 80 Respiratory Rate 20 Blood Pressure [Right Arm] 143/65 Blood Pressure 161/66 O2 Sat by Pulse Oximetry 93 Intake and Output: Intake & Output 01/24/20 01/25/20 01/26/20 01/27/20 11:59 11:59 11:59 11:59 Intake Total 2320 / 2320 1680 / 1680 Balance 2320 / 2320 1680 / 1680 - Physical Exam Oriented: Normal Eyes: Normal Ear: Normal Nose: Normal Throat: Normal Respiratory: Generalized, Diminished Cardiovascular: Normal : Normal Auscultation: Bowel Sounds: Normal Palpation: Normal Tenderness: Normal Skin: Normal Musculoskeletal: Normal Psychiatric: Normal Mood Description: Calm Affect: Normal Speech Pattern: Clear, Appropriate - Laboratory and Diagnostics Result Diagrams: 01/26/20 05:13 01/26/20 05:13 Labs: Laboratory WBC 10.1 X10^3/uL (3.6-10.0) H 01/26/20 05:13 RBC 3.36 X10^6/uL (3.5-5.4) L 01/26/20 05:13 Hgb 8.2 g/dL (12.0-16.0) L 01/26/20 05:13 Hct 25.3 % (36.0-47.0) L 01/26/20 05:13 MCV 75.4 fL (80.0-100.0) L 01/26/20 05:13 MCH 24.4 pg (27.0-34.0) L 01/26/20 05:13 MCHC 32.4 g/dL (33.0-35.0) L 01/26/20 05:13 RDW 21.0 % (11.6-16.5) H 01/26/20 05:13 Plt Count 256 X10^3/uL (150.0-450.0) 01/26/20 05:13 Plt Count Comment Adequate (ADEQUATE) 01/26/20 05:13 MPV 7.1 fL (7.4-11.0) L 01/26/20 05:13 Neut % (Auto) 73.3 % (42.0-75.0) 01/26/20 05:13 Lymph % (Auto) 13.1 % (21.0-51.0) L 01/26/20 05:13 Beauregard % (Auto) 8.1 % (0.0-13.0) 01/26/20 05:13 Eos % (Auto) 4.4 % (0.9-2.9) H 01/26/20 05:13 Baso % (Auto) 1.1 % (0.2-1.0) H 01/26/20 05:13 Neut # (Auto) 7.4 x10^3/uL (2.2-4.8) H 01/26/20 05:13 Lymph # (Auto) 1.3 X10^3/uL (1.3-2.9) 01/26/20 05:13 Beauregard # (Auto) 0.8 x10^3/uL (0.3-0.8) 01/26/20 05:13 Eos # (Auto) 0.4 x10^3/uL (0.0-0.2) H 01/26/20 05:13 Baso # (Auto) 0.1 X10^3/uL (0.0-0.1) 01/26/20 05:13 Absolute Nucleated RBC 0.2 /100WBC 01/26/20 05:13 Plt Morphology Comment Normal (NORMAL) 01/26/20 05:13 RBC Morphology Abnormal (NORMAL) A 01/26/20 05:13 Hypochromasia Slight A 01/25/20 05:11 Anisocytosis 1+ A 01/26/20 05:13 Sodium 137 mmol/L (136-145) 01/26/20 05:13 Corrected Sodium 138 mmol/L (136-145) 01/26/20 05:13 Potassium 3.8 mmol/L (3.5-5.1) 01/26/20 05:13 Chloride 105 mmol/L (98-107) 01/26/20 05:13 Carbon Dioxide 25.9 mmol/L (21-32) 01/26/20 05:13 BUN 12 mg/dL (7-18) 01/26/20 05:13 Creatinine 1.32 mg/dL (0.55-1.02) H 01/26/20 05:13 Est GFR (MDRD) Af Amer 51 (>60) L 01/26/20 05:13 Est GFR (MDRD) Non-Af 42 (>60) L 01/26/20 05:13 Glucose 158 mg/dL (65-99) H 01/26/20 05:13 POC Glucose (mg/dL) 113 mg/dL (65-99) H 01/26/20 11:49 Calcium 7.8 mg/dL (8.5-10.1) L 01/26/20 05:13 Corrected Calcium 8.9 mg/dL (8.5-10.1) 01/26/20 05:13 Magnesium 1.9 mg/dL (1.7-2.9) 01/25/20 05:11 Iron 11 ug/dL (50-175) L 01/24/20 12:00 Transferrin 304 mg/dL (202-364) 01/24/20 12:00 Ferritin 12 ng/mL (8-252) 01/26/20 05:13 Total Bilirubin 0.40 mg/dL (0.2-1.0) 01/26/20 05:13 AST 21 Units/L (15-37) 01/26/20 05:13 ALT 26 Units/L (12-78) 01/26/20 05:13 Alkaline Phosphatase 47 Units/L (46-116) 01/26/20 05:13 C-Reactive Protein 34.90 mg/L (0-3.0) H 01/26/20 05:13 Total Protein 6.2 g/dL (6.4-8.2) L 01/26/20 05:13 Albumin 2.6 g/dL (3.4-5.0) L 01/26/20 05:13 Globulin 3.6 g/dL (2.5-4.5) 01/26/20 05:13 Albumin/Globulin Ratio 0.7 Ratio (1.1-2.1) L 01/26/20 05:13 Vitamin B12 426 pg/mL (193-986) 01/24/20 12:00 Folate 19.1 ng/mL (>8.6) 01/24/20 12:00 Stool Description 10g,brown,soft form 01/24/20 19:52 Stl Occult Blood (IFOB) Negative (NEGATIVE) 01/24/20 19:52 Blood Type O POSITIVE 01/24/20 10:40 Antibody Screen Negative 01/24/20 10:40 Crossmatch See Detail 01/24/20 10:40 - Plan (1) Anemia Status: Acute Qualifiers: Anemia type: iron deficiency Iron deficiency anemia type: chronic blood loss Qualified Code(s): D50.0 - Iron deficiency anemia secondary to blood loss (chronic) Plan: NORMAL SALINE AT 75 ML/HR, PEPCID 20MG IV DAILY, PROTONIX 40MG IV BID, THE POTASSIUM AND MAGNESIUM PROTOCOLS, AND HOME MEDICATIONS WERE RESUMED
[2020-01-26] MEDS: COLACE CAP 100 MG PO SCH ×2 (14:15→21:49)
[2020-01-26] MEDS: MILK OF MAGNESIA PO SCH ×3 (14:15→21:49)
[2020-01-26] MEDS: SNACK - Diabetic Appropriate PO SCH (20:00)
[2020-01-26] MEDS: ATIVAN TAB 1 MG PO PRN (21:00)
[2020-01-27 06:40] LABS: BASOPHILS # (AUTO) 0.1 X10^3/uL (0.0-0.1); BASOPHILS % (AUTO) 1.1 % (0.2-1.0); EOSINOPHILS # (AUTO) 0.3 x10^3/uL (0.0-0.2); EOSINOPHILS % (AUTO) 3.8 % (0.9-2.9); HEMATOCRIT 23.9 % (36.0-47.0); LYMPHOCYTES # (AUTO) 1.5 X10^3/uL (1.3-2.9); LYMPHOCYTES % (AUTO) 16.8 % (21.0-51.0); MEAN CORPUSCULAR HEMOGLOBIN 24.5 pg (27.0-34.0); MEAN CORPUSCULAR HGB CONC 32.7 g/dL (33.0-35.0); MEAN CORPUSCULAR VOLUME 75.1 fL (80.0-100.0); MEAN PLATELET VOLUME 7.2 fL (7.4-11.0); MONOCYTES # (AUTO) 0.7 x10^3/uL (0.3-0.8); NEUTROPHILS # (AUTO) 6.4 x10^3/uL (2.2-4.8); NEUTROPHILS % (AUTO) 70.3 % (42.0-75.0); PLATELET COUNT 262 X10^3/uL (150.0-450.0); RED BLOOD COUNT 3.18 X10^6/uL (3.5-5.4); RED CELL DISTRIBUTION WIDTH 22.1 % (11.6-16.5); WHITE BLOOD COUNT 9.1 X10^3/uL (3.6-10.0)
[2020-01-27 06:59] LABS: HEMOGLOBIN 7.8 g/dL (12.0-16.0)
[2020-01-27 07:01] LABS: PLATELET MORPHOLOGY COMMENT NORMAL (NORMAL)
[2020-01-27 07:02] LABS: ANISOCYTOSIS 2+
[2020-01-27 07:04] LABS: ALBUMIN 2.5 g/dL (3.4-5.0); CARBON DIOXIDE 28.1 mmol/L (21-32); COR CA(FOR HYPOALB) 9.2 mg/dL (8.5-10.1); CREATININE 1.19 mg/dL (0.55-1.02); TOTAL PROTEIN 6.1 g/dL (6.4-8.2)
[2020-01-27 08:49] VITALS: BP 153/69
[2020-01-27] MEDS: COREG TAB 12.5 MG PO SCH (09:06)
[2020-01-27] MEDS: MILK OF MAGNESIA PO SCH (09:06)
[2020-01-27] MEDS: JANUVIA PO SCH (09:06)
[2020-01-27] MEDS: PROCARDIA XL PO SCH (09:07)
[2020-01-27] MEDS: PROCARDIA XL 24-hr PO SCH (09:07)
[2020-01-27] MEDS: PROTONIX INJ 40 MG VIAL IVP SCH (09:07)
[2020-01-27] MEDS: PEPCID 20 MG IV PREMIX* 20 MG/50 ML BAG IV SCH (09:07)
[2020-01-27] MEDS: K-DUR TAB 20 MEQ PO PRN (09:07)
--- NOTE | 2020-01-27 10:34 | W.DIS.FURT ---
Summary of Discharge Discharge Summary of Date Date of Exam: 01/27/20 Admission Date Date of Admission: 01/24/20 Admission Diagnosis Patient Problems (Updated 01/25/20 @ 11:09 by Danna Leahy) Anemia (Acute) D64.9 Hospital Course: PT IS A 69 YO F ADMITTED FOR SYMPTOMATIC ANEMIA AND GENERALIZED WEAKNESS. HER HGB ON ADMISSION WAS 5.6 AND SHE RECEIVED TWO UNITS OF PRBC THAT BROUGHT HER HGB UP TO 8.2 AND HAS STABILIZED. ON DAY OF DISCHARGE, SHE IS ALERT AND ORIENTED, SITTING UP ON SIDE OF BED ANXIOUS TO GET BACK HOME. SHE REPORTS FEELING WELL HAD BOWEL MOVEMENTS YESTERDAY AFTER HER KUB SHOWED CONSTIPATION. SHE IS NO LONGER COMPLAINING ABOUT ANY WEAKNESS. ON EXAMINATION, HEART IS REGULAR IN RATE AND RHYTHM. BILATERAL LUNGS ARE NOTED WITH DIMINISHED LUNG SOUNDS THROUGHOUT. ABDOMEN IS ROUND, SOFT, AND NON-TENDER WITH NORMAL BOWEL SOUNDS NOTED IN ALL QUADRANTS. HER VITALS THIS MORNING WNL. LABS/IMAGING: WBC 9.1, HGB 7.8, PLT 262, NA 138, K 3.4, CR 1.19, GLUC 126. HER HOSPITAL COURSE INCLUDED NORMAL SALINE AT 75 ML/HR, PEPCID 20MG IV DAILY, PROTONIX 40MG IV BID, THE POTASSIUM AND MAGNESIUM PROTOCOLS, ALONG WITH RECEIVING THE PRBC AND LAXATIVES. PT IS STABLE FOR DISCHARGE WITH INSTRUCTIONS TO FOLLOW UP WITH PCP IN 1 WEEK. Vital Signs: Vital Signs (72 hours) 01/24/20 11:40 01/24/20 12:00 01/24/20 16:00 Temperature 98 F 98.0 F 99.0 F Pulse Rate Pulse Rate [Right Brachial] 84 84 83 Respiratory Rate 20 20 18 Blood Pressure [Right Arm] 145/62 145/62 O2 Sat by Pulse Oximetry 94 L 94 L 93 L 01/24/20 20:00 01/24/20 22:20 01/25/20 00:00 Temperature 98.9 F 98.8 F Pulse Rate 80 Pulse Rate [Right Brachial] 83 79 Respiratory Rate 20 20 Blood Pressure [Right Arm] 147/65 164/72 O2 Sat by Pulse Oximetry 93 L 92 L 95 01/25/20 04:00 01/25/20 08:00 01/25/20 12:00 Temperature 99.3 F 97.6 F 98.1 F Pulse Rate Pulse Rate [Right Brachial] 74 71 71 Respiratory Rate 21 20 20 Blood Pressure [Right Arm] 165/72 172/72 171/70 O2 Sat by Pulse Oximetry 93 L 96 93 L 01/25/20 16:00 01/25/20 20:00 01/25/20 22:45 Temperature 98.9 F 99.3 F Pulse Rate Pulse Rate [Right Brachial] 69 76 72 Respiratory Rate 20 22 Blood Pressure [Right Arm] 195/86 219/88 193/79 O2 Sat by Pulse Oximetry 94 L 95 01/25/20 22:50 01/25/20 22:55 01/25/20 23:00 Temperature Pulse Rate Pulse Rate [Right Brachial] 71 71 70 Respiratory Rate Blood Pressure [Right Arm] 181/75 207/78 189/81 O2 Sat by Pulse Oximetry 01/26/20 00:00 01/26/20 04:00 01/26/20 08:00 Temperature 98.8 F 99.8 F H 98.4 F Pulse Rate Pulse Rate [Right Brachial] 74 83 86 Respiratory Rate 20 22 18 Blood Pressure [Right Arm] 156/67 135/59 145/65 O2 Sat by Pulse Oximetry 93 L 92 L 95 01/26/20 12:00 01/26/20 16:00 01/26/20 20:00 Temperature 98.2 F 98.4 F 99.3 F Pulse Rate Pulse Rate [Right Brachial] 73 73 78 Respiratory Rate 20 18 21 Blood Pressure [Right Arm] 143/65 152/68 172/72 O2 Sat by Pulse Oximetry 93 L 92 L 93 L 01/27/20 00:00 01/27/20 04:00 01/27/20 08:00 Temperature 98.8 F 98.5 F 98.4 F Pulse Rate Pulse Rate [Right Brachial] 77 73 76 Respiratory Rate 22 20 18 Blood Pressure [Right Arm] 142/64 158/70 153/69 O2 Sat by Pulse Oximetry 92 L 92 L 96 Labs: Laboratory Last Values WBC 9.1 X10^3/uL (3.6-10.0) 01/27/20 05:07 RBC 3.18 X10^6/uL (3.5-5.4) L 01/27/20 05:07 Hgb 7.8 g/dL (12.0-16.0) L 01/27/20 05:07 Hct 23.9 % (36.0-47.0) L 01/27/20 05:07 MCV 75.1 fL (80.0-100.0) L 01/27/20 05:07 MCH 24.5 pg (27.0-34.0) L 01/27/20 05:07 MCHC 32.7 g/dL (33.0-35.0) L 01/27/20 05:07 RDW 22.1 % (11.6-16.5) H 01/27/20 05:07 Plt Count 262 X10^3/uL (150.0-450.0) 01/27/20 05:07 Plt Count Comment Adequate (ADEQUATE) 01/27/20 05:07 MPV 7.2 fL (7.4-11.0) L 01/27/20 05:07 Neut % (Auto) 70.3 % (42.0-75.0) 01/27/20 05:07 Lymph % (Auto) 16.8 % (21.0-51.0) L 01/27/20 05:07 Phelps % (Auto) 8.0 % (0.0-13.0) 01/27/20 05:07 Eos % (Auto) 3.8 % (0.9-2.9) H 01/27/20 05:07 Baso % (Auto) 1.1 % (0.2-1.0) H 01/27/20 05:07 Neut # (Auto) 6.4 x10^3/uL (2.2-4.8) H 01/27/20 05:07 Lymph # (Auto) 1.5 X10^3/uL (1.3-2.9) 01/27/20 05:07 Phelps # (Auto) 0.7 x10^3/uL (0.3-0.8) 01/27/20 05:07 Eos # (Auto) 0.3 x10^3/uL (0.0-0.2) H 01/27/20 05:07 Baso # (Auto) 0.1 X10^3/uL (0.0-0.1) 01/27/20 05:07 Absolute Nucleated RBC 0.1 /100WBC 01/27/20 05:07 Plt Morphology Comment Normal (NORMAL) 01/27/20 05:07 RBC Morphology Abnormal (NORMAL) A 01/27/20 05:07 Hypochromasia Slight A 01/25/20 05:11 Anisocytosis 2+ A 01/27/20 05:07 Sodium 138 mmol/L (136-145) 01/27/20 05:07 Corrected Sodium 139 mmol/L (136-145) 01/27/20 05:07 Potassium 3.4 mmol/L (3.5-5.1) L 01/27/20 05:07 Chloride 103 mmol/L (98-107) 01/27/20 05:07 Carbon Dioxide 28.1 mmol/L (21-32) 01/27/20 05:07 BUN 9 mg/dL (7-18) 01/27/20 05:07 Creatinine 1.19 mg/dL (0.55-1.02) H 01/27/20 05:07 Est GFR (MDRD) Af Amer 58 (>60) L 01/27/20 05:07 Est GFR (MDRD) Non-Af 48 (>60) L 01/27/20 05:07 Glucose 126 mg/dL (65-99) H 01/27/20 05:07 POC Glucose (mg/dL) 133 mg/dL (65-99) H 01/27/20 05:31 Calcium 8.0 mg/dL (8.5-10.1) L 01/27/20 05:07 Corrected Calcium 9.2 mg/dL (8.5-10.1) 01/27/20 05:07 Magnesium 1.9 mg/dL (1.7-2.9) 01/25/20 05:11 Iron 11 ug/dL (50-175) L 01/24/20 12:00 Transferrin 304 mg/dL (202-364) 01/24/20 12:00 Ferritin 12 ng/mL (8-252) 01/26/20 05:13 Total Bilirubin 0.50 mg/dL (0.2-1.0) 01/27/20 05:07 AST 15 Units/L (15-37) 01/27/20 05:07 ALT 24 Units/L (12-78) 01/27/20 05:07 Alkaline Phosphatase 46 Units/L (46-116) 01/27/20 05:07 C-Reactive Protein 34.90 mg/L (0-3.0) H 01/26/20 05:13 Total Protein 6.1 g/dL (6.4-8.2) L 01/27/20 05:07 Albumin 2.5 g/dL (3.4-5.0) L 01/27/20 05:07 Globulin 3.6 g/dL (2.5-4.5) 01/27/20 05:07 Albumin/Globulin Ratio 0.7 Ratio (1.1-2.1) L 01/27/20 05:07 Vitamin B12 426 pg/mL (193-986) 01/24/20 12:00 Folate 19.1 ng/mL (>8.6) 01/24/20 12:00 Stool Description 10g,brown,soft form 01/24/20 19:52 Stl Occult Blood (IFOB) Negative (NEGATIVE) 01/24/20 19:52 Blood Type O POSITIVE 01/24/20 10:40 Antibody Screen Negative 01/24/20 10:40 Crossmatch See Detail 01/24/20 10:40 Reason For Visit: ANEMIA Discharge Date Discharge Date: 01/27/20 Discharge Diagnosis All Active Problems (Updated 01/25/20 @ 11:09 by Danna Leahy) Anemia (Acute) Plan of Treatment: Continue with present treatment and follow up plan. Pt is to keep follow up appointment as instructed and take medications as ordered. Discharge Medications Discharge Medications: acetaminophen [From Percocet] Allergy (Verified 01/24/20 11:40) oxycodone [From Percocet] Allergy (Verified 01/24/20 11:40) Nvbcmyw-Hiv-Rkb Reductase Inhibitor Allergy (Verified 10/14/17 22:05) CONTINUE taking the following medications albuterol sulfate 1.25 mg INHALATION QID PRN 01/24/20 [History] budesonide-formoterol [Symbicort] 1 puff INHALATION BID 01/24/20 [History] clopidogrel 75 mg PO DAILY 01/24/20 [History] Follow up and Referral Follow Up: 1 Week Discharge Disposition Assessment: Stable no acute distress noted at time of discharge. Discharge Disposition: HOME Discharge Condition: STABLE
== END 2020-01-27 11:30 | disposition home or self-care (01) | DRG 812 ==
LOC: MED/SURG 11:08
PROVIDERS: ADMIT Internal Medicine; ATTEND Internal Medicine
DX: R10.84 Generalized abdominal pain; D50.0 Iron deficiency anemia secondary to blood loss (chronic); F32.89 Other specified depressive episodes; I25.10 Atherosclerotic heart disease of native coronary artery without angina pectoris; E78.2 Mixed hyperlipidemia; I10 Essential (primary) hypertension; E11.65 Type 2 diabetes mellitus with hyperglycemia; F41.8 Other specified anxiety disorders
CPT/HCPCS: 36415; 36430; 71010; 71045; 74000; 74018; 80053; 82270; 82607; 82728; 82746; 83540; 83735; 84466; 85014; 85018; 85025; 86140; 86850; 86900; 86901; 86922; 94640; 94760; A4216; A4222; C9113; J1200; J3475; J3490; J7030; J7040; J7626; P9016; S0028

== ENCOUNTER 2022-09-16 13:34 | Observation (INO) ==
[2022-09-16] MEDS ORDERED: TYLENOL 325 MG TAB PO PRN (14:11)
[2022-09-16] MEDS ORDERED: PROVENTIL NEB TX 0.083% 2.5MG/ 3ML NEB PRN (14:35)
[2022-09-16 14:50] LABS: BASOPHILS # (AUTO) 0.1 X10^3/uL (0.0-0.1); BASOPHILS % (AUTO) 1.3 % (0.2-1.0); EOSINOPHILS # (AUTO) 0.1 x10^3/uL (0.0-0.2); EOSINOPHILS % (AUTO) 2.7 % (0.9-2.9); HEMATOCRIT 23.5 % (36.0-47.0); HEMOGLOBIN 7.2 g/dL (12.0-16.0); LYMPHOCYTES # (AUTO) 1.7 X10^3/uL (1.3-2.9); LYMPHOCYTES % (AUTO) 31.5 % (21.0-51.0); MEAN CORPUSCULAR HEMOGLOBIN 24.2 pg (27.0-34.0); MEAN CORPUSCULAR HGB CONC 30.6 g/dL (33.0-35.0); MEAN PLATELET VOLUME 7.3 fL (7.4-11.0); MONOCYTES # (AUTO) 0.4 x10^3/uL (0.3-0.8); MONOCYTES % (AUTO) 8.1 % (0.0-13.0); NEUTROPHILS % (AUTO) 56.4 % (42.0-75.0); RED BLOOD COUNT 2.97 X10^6/uL (3.5-5.4); RED CELL DISTRIBUTION WIDTH 18.1 % (11.6-16.5); WHITE BLOOD COUNT 5.3 X10^3/uL (3.6-10.0)
[2022-09-16 15:02] LABS: ALANINE AMINOTRANSFERASE 21 Units/L (12-78); ALBUMIN 3.5 g/dL (3.4-5.0); ALKALINE PHOSPHATASE 32 Units/L (46-116); ASPARTATE AMINO TRANSFERASE 17 Units/L (15-37); BLOOD UREA NITROGEN 24 mg/dL (7-18); CALCIUM 8.6 mg/dL (8.5-10.1); CHLORIDE 104 mmol/L (98-107); COR NA(FOR HYPERGLY) 142 mmol/L (136-145); CREATININE 1.49 mg/dL (0.55-1.02); SODIUM 141 mmol/L (136-145); TOTAL PROTEIN 6.8 g/dL (6.4-8.2); eGFR NON BLACK RACES 36 (>60)
[2022-09-16 15:06] VITALS: BMI 32.5
[2022-09-16] MEDS: NS 1,000 ML IV 1,000 ML IV SCH (15:11)
[2022-09-16] MEDS ORDERED: NS 250 ML IV 250 ML IV ONE ×2 (16:27→21:17)
[2022-09-16] MEDS ORDERED: BENADRYL INJ 50 MG VIAL ONE (17:28)
[2022-09-16] MEDS: BENADRYL INJ 50 MG VIAL IVP ONE ×2 (17:29→17:35)
[2022-09-16] MEDS: PULMICORT NEB TX 0.5 MG NEB SCH (21:00)
[2022-09-17 02:00] LABS: HEMATOCRIT 29.5 % (36.0-47.0)
[2022-09-17 02:01] LABS: HEMOGLOBIN 9.4 g/dL (12.0-16.0)
[2022-09-17] MEDS: NS 1,000 ML IV 1,000 ML IV SCH (04:02)
[2022-09-17 05:39] LABS: BASOPHILS # (AUTO) 0.1 X10^3/uL (0.0-0.1); BASOPHILS % (AUTO) 1.7 % (0.2-1.0); EOSINOPHILS # (AUTO) 0.2 x10^3/uL (0.0-0.2); EOSINOPHILS % (AUTO) 3.9 % (0.9-2.9); HEMATOCRIT 29.1 % (36.0-47.0); HEMOGLOBIN 9.4 g/dL (12.0-16.0); LYMPHOCYTES # (AUTO) 1.6 X10^3/uL (1.3-2.9); LYMPHOCYTES % (AUTO) 29.6 % (21.0-51.0); MEAN CORPUSCULAR HEMOGLOBIN 25.6 pg (27.0-34.0); MEAN CORPUSCULAR HGB CONC 32.3 g/dL (33.0-35.0); MEAN CORPUSCULAR VOLUME 79.2 fL (80.0-100.0); MEAN PLATELET VOLUME 7.5 fL (7.4-11.0); MONOCYTES # (AUTO) 0.5 x10^3/uL (0.3-0.8); MONOCYTES % (AUTO) 9.7 % (0.0-13.0); NEUTROPHILS % (AUTO) 55.1 % (42.0-75.0); RED BLOOD COUNT 3.67 X10^6/uL (3.5-5.4); RED CELL DISTRIBUTION WIDTH 17.1 % (11.6-16.5); WHITE BLOOD COUNT 5.4 X10^3/uL (3.6-10.0)
[2022-09-17 05:50] LABS: ALBUMIN 3.3 g/dL (3.4-5.0); CALCIUM 8.4 mg/dL (8.5-10.1); CARBON DIOXIDE 29.2 mmol/L (21-32); CREATININE 1.47 mg/dL (0.55-1.02); TOTAL PROTEIN 6.4 g/dL (6.4-8.2)
[2022-09-17] MEDS: PULMICORT NEB TX 0.5 MG NEB SCH (08:47)
[2022-09-17] MEDS ORDERED: COREG TAB 25 MG PO ONE (12:04)
[2022-09-17] MEDS ORDERED: APRESOLINE TAB 25 MG PO ONE (12:04)
[2022-09-17] MEDS ORDERED: APRESOLINE TAB 25 MG ONE (12:07)
[2022-09-17] MEDS ORDERED: COREG TAB 25 MG ONE (12:07)
[2022-09-17 12:12] VITALS: BP 180/70
--- NOTE | 2022-10-05 12:16 | DR.CARTERS ---
Short Stay Summary - Admission Date Date of Admission: 09/16/22 - Discharge Date Discharge Date: 09/17/22 - Admission Diagnoses (1) Anemia Status: Acute (2) Generalized weakness Status: Acute - Hospital Course Hospital Course: IS A 72 YEAR OLD PATIENT OF OURS. SHE PRESENTED TO THE HOSPITAL A DIRECT ADMISSION FROM OUR OFFICE FOR FURTHER EVALUATION AND TREATMENT OF ANEMIA AND GENERALIZED WEAKNESS. PATIENT REPORTS THAT SHE HAS A PRE-OPERATIVE APPOINTMENT IN [place], [place] YESTERDAY. THEY OBTAINED LAB WORK. PATIENT WAS TOLD THAT HER HEMOGLOBIN WAS 7.4 AND THAT HER PROCEDURE WOULD BE CANCELLED AND TO FOLLOW-UP WITH PCP. SHE WAS TOLD TO STOP TAKING HER PLAVIX. UPON EVALUATION IN OUR OFFICE, PATIENT REPORTED GENERALIZED WEAKNESS WITH MILD SHORTNESS OF BREATH AT TIMES. SHE DENIED PRESENCE OF VISIBLE BLOOD IN STOOLS OR DARK, TARRY STOOLS. HER PMH INCLUDES: CVA, CAD, HYPERLIPIDEMIA, HTN, GERD, STAGE 3 RENAL DISEASE, KIDNEY STONES, DM II, ANEMIA, SMALL BOWEL AVMs, CABG, CARDIAC STENTS, HYSTERECTOMY. SHE IS A CURRENT EVERYDAY SMOKER. SHE REPORTS HAVING MULTIPLE GI WORKUPS IN THE PAST. ON ARRIVAL TO THE HOSPITAL, HER VITALS WERE: 97.6-64-16-94%-155/69. LABS WERE OBTAINED. WBC 5.3, RBC 2.97, HGB 7.2, HCT 23.5, PLT COUNT 251, SODIUM 141, POTASSIUM 4.4, CHLORIDE 104, CARBON DIOXIDE 28.0, BUN 24, CREATININE 1.49, GLUCOSE 143, CALCIUM 8.6, TOTAL BILI 0.40, AST 17, ALT 21, ALK PHOS 32, TOTAL PROTEIN 6.8, ALBUMIN 3.5. WE OBTAINED A TYPE AND SCREEN AND CROSSMATCHED FOR TWO UNITS OF PACKED RED BLOOD CELLS. WE PLANNED TO TRANSFUSE 2 UNITS OF PACKED RED BLOOD CELLS WHEN THEY BECAME AVAILABLE. SHE WAS STARTED ON NORMAL SALINE AT KVO, TYLENOL 650MG PO Q6H PRN, BENADRYL 25MG IV X 1 DOSE BEFORE TRANSFUSION OF BLOOD, ALBUTEROL NEB TX QID, BUDESONIDE NEB TX BID. OTHERWISE, WE PLANNED TO FOLLOW-UP WITH AM LABS AND CONTINUE TO MONITOR. ON MORNING ROUNDS, PATIENT WAS ALERT AND ORIENTED, LYING IN BED. SHE RECEIVED TWO UNITS OF PACKED RED BLOOD CELLS THROUGHOUT THE NIGHT. SHE REPORTS FEELING WELL AND DENIES CURRENT COMPLAINTS. ON EXAMINATION, HEART IS REGULAR IN RATE AND RHYTHM. BILATERAL LUNGS ARE CLEAR TO AUSCULTATION. ABDOMEN IS ROUND, SOFT, AND NON-TENDER WITH NORMAL BOWEL SOUNDS NOTED IN ALL QUADRANTS. NO UPPER OR LOWER EXTREMITY EDEMA NOTED. HER VITALS THIS MORNING WERE: 97.8-60-18-93%-160/50. LABS WERE OBTAINED. WBC 5.4, RBC 3.67, HGB 9.4, HCT 29.1, PLT COUNT 224, SODIUM 142, POTASSIUM 4.0, CHLORIDE 107, BUN 22, CREATININE 1.47, GLUCOSE 139, CALCIUM 8.4, AST 31, ALT 29, ALK PHOS 36, TOTAL PROTEIN 6.4, ALBUMIN 3.3. WE PLANNED FOR DISCHARGE. INSTRUCTIONS FOR MEDICATIONS AND FOLLOW-UP WERE DISCUSSED WITH PATIENT. SHE VERBALIZED UNDERSTANDING OF ALL ORDERS. SHE WAS INSTRUCTED TO CONTINUE HER CURRENT MEDICATIONS WITH THE EXCEPTION OF HER PLAVIX UNTIL SHE HAS INSTRUCTIONS FROM HER MEDICAL INSURANCE CLAIMS SPECIALIST TO RESUME. SHE IS OTHERWISE INSTRUCTED TO FOLLOW-UP IN OUR OFFICE ON 09/24/22 AT 3:00PM. PATIENT WAS DISCHARGED HOME WITH HER FAMILY IN STABLE CONDITION. TIME SPENT ON CLINICAL ASSESSMENT, REVIWING LABS AND IMAGING, DECISION MAKING, DISCHARGE INSTRUCTIONS, PREPARING DISCHARGE PAPERS, AND DOCUMENTATION GREATER THAN 75 MINUTES. - Discharge Medications Discharge Medications: Home Medication List carvedilol 25 mg tablet 25 mg PO BID 09/16/22 [History] empagliflozin 25 mg tablet (Jardiance) 25 mg PO DAILY 09/16/22 [History] estradiol 0.5 mg tablet 0.5 mg PO DAILY 09/16/22 [History] evolocumab 140 mg/mL subcutaneous pen injector (Repatha SureClick) 140 mg subcut .[id number] 09/16/22 [History] fenofibrate 160 mg tablet 160 mg PO HS 09/16/22 [History] gabapentin 300 mg capsule 300 mg PO TID 09/16/22 [History] hydralazine 50 mg tablet 50 mg PO TID 09/16/22 [History] icosapent ethyl 1 gram capsule 1 g PO BID 09/16/22 [History] isosorbide mononitrate 60 mg tablet,extended release 24 hr 60 mg PO HS 09/16/22 [History] levocetirizine 5 mg tablet 5 mg PO DAILY 09/16/22 [History] Prescriptions: - Discharge Plan Disposition: HOME, SELF-CARE Condition: Stable - Follow up/Referrals Follow up/Referrals: Roddy Jasmine [Primary Care Provider] - 09/24/22 3:00 pm - Instructions Instructions: Blood Transfusion, Adult, [id number], Hypertension, Adult, [id number], Iron Deficiency Anemia, Adult, [id number], Steps to Quit Smoking Additional Instructions: DIET TOLERATED. ACTIVITY TOLERATED. Forms: Excuse From Work or School
== END 2022-09-17 12:15 | disposition home or self-care (01) ==
LOC: MED/SURG
PROVIDERS: ADMIT Internal Medicine; ATTEND Internal Medicine
DX: R94.4 Abnormal results of kidney function studies; D64.9 Anemia, unspecified; R73.09 Other abnormal glucose; R53.1 Weakness; N18.30 Chronic kidney disease, stage 3 unspecified; R00.2 Palpitations; I12.9 Hypertensive chronic kidney disease with stage 1 through stage 4 chronic kidney disease, or unspecified chronic kidney disease; R79.89 Other specified abnormal findings of blood chemistry

== ENCOUNTER 2023-12-24 11:20 | Observation (INO) ==
[2023-12-24 12:00] VITALS: BMI 31.8
--- NOTE | 2023-12-24 12:08 | DR.GENAD ---
HPI Time Seen Time Seen by Provider: 12/24/23 12:06 PCP Primary Care Physician: Kenroy Complaint/Symptoms Chief Complaint Doctors Comments: Patient states that she has had dark tarry stool for about 3 to 4 days. She was seen in her primary care provider's office yesterday and got blood work done and she was called today stating that her hemoglobin was 7.5 and she needs to go to the ER to be further evaluated. Patient has several transfusions in the past because she does have some issues with her jejunum that bleeds and she occasionally has to get transfusion. She did have a procedure done on 16 December which appeared to be some stenting of her l egs for blockages. She stated at the time she was on Plavix and Xarelto but she currently only takes Xarelto. She thinks that because she was on both Xarelto and the Plavix this may have caused her to bleed more from that jejunal area Chief Complaint:: Patient stated that she has been having dark tary stools for the last three to four days. Patient was seen in her PCP office yesterday and had blood work drawn, Patient stated that she got a call from her PCP office that she needed to be seen in the ER due to her hgb being very low. COVID-19 Coronavirus risk:travel/contact w/high risk person: No Has patient experienced Coronavirus symptoms: No Source History Provided: Patient Mode of Arrival Mode of Arrival: Ambulatory Timing Onset of Chief Complaint: 12/20/23 PMH PMH Past Medical History: Yes Past Medical History: Anemia, Anxiety, Arthritis, Coronary Artery Disease, Depression, Diabetes, Dyslipidemia and Hypertension Past Medical History Comment: GI Bleed, H-Pylori Gastritis Past Surgical History: Yes Surgical History: CABG/Valve Surgery, Hysterectomy and Ortho Surgery Past Surgical History Comment: Stents placed right leg x1wk ago Family History History of Family Medical Conditions: Yes Family Medical History: Diabetes Mellitus, Cancer, Coronary Artery Disease and H ypertension Social History Does patient currently use any type of tobacco product: Yes Have you used tobacco products in the last 12 months: Yes Type of Tobacco Use: Cigarettes Do you use any recreational Drugs:: No Travel Risk Coronavirus risk:travel/contact w/high risk person: No Has patient experienced Coronavirus symptoms: No Infectious screening In the last 2 months have you had wt loss of >10#?: NO Have you had fever, night sweats or hemotysis?: No Have you traveled outside the country in the last 6 months?: No Isolation: Standard ROS Review of Systems Constitutional: Other (low hemoglobin) Eyes: No Symptoms Reported ENTM: No Symptoms Reported Respiratoy: No Symptoms Reported Cardiovascular: No Symptoms Reported Gastrointestinal/Abdominal: No Symptoms Reported Genitourinary: No Symptoms Reported Neurological: No Symptoms Reported Musculoskeletal: No Symptoms Reported Integumentary: No Symptoms Reported Hematologic/Lymphatic: Anemia Endocrine: No Symptoms Reported Psychiatric: No Symptoms Reported PE Vital Signs Vitals: Vital Signs Temperature 97.8 F Pulse Rate 67 Pulse Rate 66 Pulse Rate 65 Pulse Rate 66 Pulse Rate 67 Pulse Rate 68 Pulse Rate 69 Pulse Rate 72 Pulse Rate 69 Pulse Rate 73 Pulse Rate 69 Pulse Rate 67 Pulse Rate 68 Pulse Rate 70 Pulse Rate 70 Pulse Rate 71 Pulse Rate 77 Respiratory Rate 24 Respiratory Rate 20 Respiratory Rate 21 Respiratory Rate 26 Respiratory Rate 22 Respiratory Rate 24 Respiratory Rate 17 Respiratory Rate 20 Respiratory Rate 24 Respiratory Rate 18 Respiratory Rate 18 Blood Pressure 161/67 Blood Pressure 181/70 Blood Pressure 168/70 Blood Pressure 187/79 Blood Pressure 195/77 Blood Pressure 168/70 Blood Pressure 193/80 O2 Sat by Pulse Oximetry 93 O2 Sat by Pulse Oximetry 94 O2 Sat by Pulse Oximetry 94 O2 Sat by Pulse Oximetry 93 O2 Sat by Pulse Oximetry 97 O2 Sat by Pulse Oximetry 97 O2 Sat by Pulse Oximetry 96 O2 Sat by Pulse Oximetry 96 O2 Sat by Pulse Oximetry 96 O2 Sat by Pulse Oximetry 95 O2 Sat by Pulse Oximetry 96 O2 Sat by Pulse Oximetry 95 O2 Sat by Pulse Oximetry 95 O2 Sat by Pulse Oximetry 93 O2 Sat by Pulse Oximetry 92 O2 Sat by Pulse Oximetry 93 O2 Sat by Pulse Oximetry 93 General Limitations: No Limitations General Appearance: In No Apparent Distress Head Head Exam: Normal Inspection, Atraumatic and Normocephalic Eyes Eye exam: Normal Appearance, PERRL and EOMI ENT ENT Exam: Normal Exam, Normal Oropharynx and Normal External Ear Exam External Ear Exam: Normal External Inspection TM/Canal Exam: Bilateral: Normal Nose Exam: Normal Nose Exam Mouth Exam: Normal Inspection Throat Exam: Normal Inspection Neck Neck Exam: Normal Inspection Chest Chest Inspection: Normal Inspection and Symmetric Chest Wall Rise Respiratory Respiratory Exam: Normal Lung Sounds Bilat Respiratory Exam: Lower: Clear to Auscultation Cardiovascular Cardiovascular Exam: Regular Rate and Normal Rhythm Abdominal Exam Abdominal Exam: Normal Inspection and Normal Bowel Sounds Extremities Extremities Exam: Normal Inspection and Full ROM Back Back Exam: Normal Inspection and Full ROM Neurologic Neurological Exam: Alert, Oriented X3 and CN II-XII Intact Psychiatric Psychiatric Exam: Normal Affect Skin Skin Exam: Warm, Dry and Intact MDM Differential Diagnosis Differential Diagnosis: upper gi bleed,anemia COURSE Treatment Treatment: Patient remained relatively stable during ER evaluation. 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 The patient is on Plavix and Xarelto and she was recently placed on the Plavix during her surgery on December 16. The patient stated she thinks that is why she is bleeding little more. She states she does require transfusion periodically for this problem with her jejunal bleeding. I spoke to the on-call physician Dr. Sosa at 1320 and she stated we could go ahead and put her in transfused 2 units of packed red blood cells and to monitor her H&H. The patient was told of the intent and was agreeable to the intent. We did call the utilization review and they said we could put her on observation. We did type and screen for 2 units of packed red blood cells and we will transfuse those 2 units of packed red blood cells. [facility] Labs Reviewed Laboratory Results Reviewed?: Yes 12/24/23 12:35 12/24/23 13:48 Laboratory: WBC 6.3 X10^3/uL (3.6-10.0) 12/24/23 12:35 RBC 3.79 X10^6/uL (3.5-5.4) 12/24/23 12:35 Hgb 7.7 g/dL (12.0-16.0) L 12/24/23 12:35 Hct 26.2 % (36.0-47.0) L 12/24/23 12:35 MCV 69.0 fL (80.0-100.0) L 12/24/23 12:35 MCH 20.3 pg (27.0-34.0) L 12/24/23 12:35 MCHC 29.4 g/dL (33.0-35.0) L 12/24/23 12:35 RDW 19.1 % (11.6-16.5) H 12/24/23 12:35 Plt Count 329 X10^3/uL (150.0-450.0) 12/24/23 12:35 Plt Count Comment Adequate (ADEQUATE) 12/24/23 12:35 MPV 7.1 fL (7.4-11.0) L 12/24/23 12:35 Neut % (Auto) 61.8 % (42.0-75.0) 12/24/23 12:35 Lymph % (Auto) 27.2 % (21.0-51.0) 12/24/23 12:35 [place] % (Auto) 6.4 % (0.0-13.0) 12/24/23 12:35 Eos % (Auto) 3.1 % (0.9-2.9) H 12/24/23 12:35 Baso % (Auto) 1.5 % (0.2-1.0) H 12/24/23 12:35 Neut # (Auto) 3.9 x10^3/uL (2.2-4.8) 12/24/23 12:35 Lymph # (Auto) 1.7 X10^3/uL (1.3-2.9) 12/24/23 12:35 [place] # (Auto) 0.4 x10^3/uL (0.3-0.8) 12/24/23 12:35 Eos # (Auto) 0.2 x10^3/uL (0.0-0.2) 12/24/23 12:35 Baso # (Auto) 0.1 X10^3/uL (0.0-0.1) 12/24/23 12:35 Absolute Nucleated RBC 0.4 /100WBC 12/24/23 12:35 Plt Morphology Comment Normal (NORMAL) 12/24/23 12:35 RBC Morphology Abnormal (NORMAL) A 12/24/23 12:35 Hypochromasia 2+ A 12/24/23 12:35 Anisocytosis Slight A 12/24/23 12:35 Microcytosis 1+ A 12/24/23 12:35 Stomatocytes Present 12/24/23 12:35 Sodium 138 mmol/L (136-145) 12/24/23 13:48 Corrected Sodium 141 mmol/L (136-145) 12/24/23 13:48 Potassium 4.5 mmol/L (3.5-5.1) 12/24/23 13:48 Chloride 101 mmol/L (98-107) 12/24/23 13:48 Carbon Dioxide 31.3 mmol/L (21-32) 12/24/23 13:48 BUN 31 mg/dL (7-18) H 12/24/23 13:48 Creatinine 1.77 mg/dL (0.55-1.02) H 12/24/23 13:48 Est GFR (MDRD) Af Amer 36 (>60) L 12/24/23 13:48 Est GFR (MDRD) Non-Af 30 (>60) L 12/24/23 13:48 Glucose 228 mg/dL (65-99) H 12/24/23 13:48 Calcium 9.0 mg/dL (8.5-10.1) 12/24/23 13:48 Corrected Calcium TNP 12/24/23 13:48 Total Bilirubin 0.40 mg/dL (0.2-1.0) 12/24/23 13:48 AST 19 Units/L (15-37) 12/24/23 13:48 ALT 23 Units/L (12-78) 12/24/23 13:48 Alkaline Phosphatase 35 Units/L (46-116) L 12/24/23 13:48 Total Protein 7.5 g/dL (6.4-8.2) 12/24/23 13:48 Albumin 3.5 g/dL (3.4-5.0) 12/24/23 13:48 Globulin 4.0 g/dL (2.5-4.5) 12/24/23 13:48 Albumin/Globulin Ratio 0.9 Ratio (1.1-2.1) L 12/24/23 13:48 Crossmatch See Detail 12/24/23 13:48 Opioid Opioid Risk Tool Age (Chong box if 16-45): No History of Preadolescent Sexual Abuse: No Total: 0 Total Score Risk Category: Low Risk Copyright: Pillo WATSON predicting aberrant behaviors Discharge Plan Diagnosis Discharge Problem: Anemia, Generalized weakness, Acute GI bleeding Discharge Plan Patient Disposition: ADMITTED INPATIENT Condition: Stable Orders to Discharge Patient Discharge Orders: Transfer (Routine); Ordered 12/24/23 Ordered By: Sebastián Cid
[2023-12-24 12:45] LABS: BASOPHILS # (AUTO) 0.1 X10^3/uL (0.0-0.1); BASOPHILS % (AUTO) 1.5 % (0.2-1.0); EOSINOPHILS # (AUTO) 0.2 x10^3/uL (0.0-0.2); EOSINOPHILS % (AUTO) 3.1 % (0.9-2.9); HEMATOCRIT 26.2 % (36.0-47.0); HEMOGLOBIN 7.7 g/dL (12.0-16.0); LYMPHOCYTES # (AUTO) 1.7 X10^3/uL (1.3-2.9); LYMPHOCYTES % (AUTO) 27.2 % (21.0-51.0); MEAN CORPUSCULAR HEMOGLOBIN 20.3 pg (27.0-34.0); MEAN CORPUSCULAR HGB CONC 29.4 g/dL (33.0-35.0); MEAN PLATELET VOLUME 7.1 fL (7.4-11.0); MONOCYTES # (AUTO) 0.4 x10^3/uL (0.3-0.8); MONOCYTES % (AUTO) 6.4 % (0.0-13.0); NEUTROPHILS # (AUTO) 3.9 x10^3/uL (2.2-4.8); NEUTROPHILS % (AUTO) 61.8 % (42.0-75.0); PLATELET COUNT 329 X10^3/uL (150.0-450.0); RED BLOOD COUNT 3.79 X10^6/uL (3.5-5.4); RED CELL DISTRIBUTION WIDTH 19.1 % (11.6-16.5); WHITE BLOOD COUNT 6.3 X10^3/uL (3.6-10.0)
[2023-12-24 13:24] LABS: ANISOCYTOSIS SLIGHT; HYPOCHROMASIA 2+; MICROCYTOSIS 1+; PLATELET MORPHOLOGY COMMENT NORMAL (NORMAL)
[2023-12-24 13:25] LABS: STOMATOCYTES PRESENT
[2023-12-24 13:53] LABS: ALANINE AMINOTRANSFERASE 23 Units/L (12-78); ALBUMIN 3.5 g/dL (3.4-5.0); ALKALINE PHOSPHATASE 35 Units/L (46-116); ASPARTATE AMINO TRANSFERASE 19 Units/L (15-37); BLOOD UREA NITROGEN 31 mg/dL (7-18); CARBON DIOXIDE 31.3 mmol/L (21-32); CHLORIDE 101 mmol/L (98-107); COR NA(FOR HYPERGLY) 141 mmol/L (136-145); CREATININE 1.77 mg/dL (0.55-1.02); GLUCOSE 228 mg/dL (65-99); SODIUM 138 mmol/L (136-145); TOTAL PROTEIN 7.5 g/dL (6.4-8.2); eGFR NON BLACK RACES 30 (>60)
[2023-12-24 13:58] LABS: POTASSIUM 4.5 mmol/L (3.5-5.1)
[2023-12-24] MEDS: TRICOR TAB 160 MG PO SCH (21:06)
[2023-12-24] MEDS: COREG TAB 25 MG PO SCH (21:06)
[2023-12-24] MEDS: PROTONIX TAB 40 MG PO SCH (21:06)
[2023-12-24] MEDS: NEURONTIN CAP 300 MG PO SCH (21:06)
[2023-12-24] MEDS: APRESOLINE TAB 25 MG PO SCH (21:07)
[2023-12-24] MEDS: PATIENT'S HOME MEDICATION (Icosapent Ethyl [Vascepa] 1 gram capsule) PO SCH (21:07)
[2023-12-24] MEDS: ATIVAN TAB 1 MG PO SCH (21:07)
[2023-12-24] MEDS ORDERED: HYDRALAZINE 100 MG PO SCH (22:00)
[2023-12-24] MEDS: NovoLIN R (or HumuLIN R) SUBCUT PRN (22:02)
[2023-12-25 03:15] LABS: HEMATOCRIT 32.5 % (36.0-47.0)
[2023-12-25 03:33] LABS: HEMOGLOBIN 10.1 g/dL (12.0-16.0)
[2023-12-25 06:38] LABS: EOSINOPHILS # (AUTO) 0.3 x10^3/uL (0.0-0.2); RED BLOOD COUNT 4.39 X10^6/uL (3.5-5.4); WHITE BLOOD COUNT 6.3 X10^3/uL (3.6-10.0)
[2023-12-25 06:44] LABS: BASOPHILS # (AUTO) 0.1 X10^3/uL (0.0-0.1); BASOPHILS % (AUTO) 1.2 % (0.2-1.0); EOSINOPHILS % (AUTO) 4.2 % (0.9-2.9); HEMATOCRIT 32.5 % (36.0-47.0); HEMOGLOBIN 10.1 g/dL (12.0-16.0); LYMPHOCYTES % (AUTO) 32.2 % (21.0-51.0); MEAN CORPUSCULAR HGB CONC 31.1 g/dL (33.0-35.0); MEAN CORPUSCULAR VOLUME 74.2 fL (80.0-100.0); MEAN PLATELET VOLUME 7.5 fL (7.4-11.0); MONOCYTES # (AUTO) 0.5 x10^3/uL (0.3-0.8); MONOCYTES % (AUTO) 8.1 % (0.0-13.0); NEUTROPHILS # (AUTO) 3.4 x10^3/uL (2.2-4.8); NEUTROPHILS % (AUTO) 54.3 % (42.0-75.0); PLATELET COUNT 267 X10^3/uL (150.0-450.0); RED CELL DISTRIBUTION WIDTH 20.8 % (11.6-16.5)
[2023-12-25 06:49] LABS: ALBUMIN 3.2 g/dL (3.4-5.0); CALCIUM 8.5 mg/dL (8.5-10.1); CARBON DIOXIDE 29.6 mmol/L (21-32); COR CA(FOR HYPOALB) 9.1 mg/dL (8.5-10.1); CREATININE 1.57 mg/dL (0.55-1.02); POTASSIUM 4.2 mmol/L (3.5-5.1); TOTAL PROTEIN 6.6 g/dL (6.4-8.2)
[2023-12-25 07:14] LABS: ANISOCYTOSIS 1+; HYPOCHROMASIA 1+; MICROCYTOSIS SLIGHT; PLATELET MORPHOLOGY COMMENT NORMAL (NORMAL); STOMATOCYTES PRESENT
[2023-12-25] MEDS ORDERED: NIFEDIPINE 90 MG PO SCH (09:00)
[2023-12-25] MEDS ORDERED: PATIENT'S HOME MEDICATION (Levocetirizine 5 mg Tablet) PO SCH (09:00)
[2023-12-25] MEDS ORDERED: RIVAROXABAN 20 MG PO SCH (09:00)
[2023-12-25] MEDS ORDERED: ESTRADIOL 0.5 MG PO SCH (09:00)
[2023-12-25] MEDS ORDERED: PATIENT'S HOME MEDICATION (Mv-Mins No.73-Iron Fum-Folic [Hemocyte-Plus] 106 mg iron- 1 mg PO SCH (09:00)
[2023-12-25] MEDS: ESTRACE PO SCH (09:28)
[2023-12-25] MEDS: ZyrTEC TAB 10 MG PO SCH (09:29)
[2023-12-25] MEDS: PROCARDIA XL PO SCH (09:29)
[2023-12-25] MEDS: XARELTO PO SCH (09:29)
[2023-12-25] MEDS: MIRABEGRON 25 MG PO SCH (09:33)
[2023-12-25] MEDS: PLAVIX PO SCH (09:33)
[2023-12-25] MEDS: HEMOCYTE-PLUS PO SCH (09:35)
[2023-12-25] MEDS: ALDACTONE TAB 25 MG PO SCH (09:35)
[2023-12-25 10:40] VITALS: PULSE 70; RESP 18; TEMP 97; O2SAT 93
[2023-12-25 10:51] VITALS: BP 155/67
[2023-12-25] MEDS ORDERED: SNACK - Diabetic Appropriate PO SCH (20:00)
[2023-12-25] MEDS ORDERED: TRICOR TAB 48 MG PO SCH (21:00)
== END 2023-12-25 12:25 | disposition home or self-care (01) ==
LOC: ER 11:20 → U 11:20 → MED/SURG 11:20
PROVIDERS: ADMIT Internal Medicine; ATTEND Internal Medicine
DX: E11.65 Type 2 diabetes mellitus with hyperglycemia; D64.89 Other specified anemias; R53.1 Weakness; K92.2 Gastrointestinal hemorrhage, unspecified

== ENCOUNTER 2025-04-04 08:33 | Observation (INO) ==
[2025-04-04 09:03] LABS: MEAN PLATELET VOLUME 6.7 fL (7.4-11.0); RED CELL DISTRIBUTION WIDTH 15.2 % (11.6-16.5)
--- NOTE | 2025-04-04 09:09 | EKG ---
Test Reason : chest pain Blood Pressure : */* mmHG Vent. Rate : 68 BPM Atrial Rate : 68 BPM P-R Int : 164 ms QRS Dur : 76 ms QT Int : 420 ms P-R-T Axes : 35 25 177 degrees QTc Int : 446 ms Normal sinus rhythm Septal infarct , age undetermined Abnormal ECG No previous ECGs available Confirmed by Octaviano Davies MD ([id number]) on 04/04/2025 12:54:22 PM Referred By: Confirmed By: Octaviano Davies MD
[2025-04-04 09:18] LABS: COR CA(FOR HYPOALB) 9.4 mg/dL (8.5-10.1); COR NA(FOR HYPERGLY) 140.0 mmol/L (136-145); CREATININE 2.77 mg/dL (0.55-1.02); eGFR NON BLACK RACES 18.0 (>60)
--- NOTE | 2025-04-04 09:34 | DR.GIBLEED ---
HPI Time Seen Time Seen by Provider: 04/04/25 08:51 Primary Care Physician Primary Care Physician: Complaints Chief Complaint Doctors Comments: 75 yo F, hx of blood-loss anemia requiring transfusions, also hx of afib on xarelto, c/o increasing weakness and dyspnea over the past 3 wk. States the weakness started 4 wk ago. States she started having central chest pain ~1h [employer], no chest pain now. Denies other complaints. Chief Complaint:: pt states that she has been weak for abouot 4 weeks now and has profressively gotten worse. She has also been having bilateral flank pain for about a weeks. Pt's daughter states that she complained of chest pain last night and this morning on the way to the hospital. COVID-19 Coronavirus risk:travel/contact w/high risk person: No Has patient experienced Coronavirus symptoms: No Source History Provided: Patient and Family Member Mode of Arrival Mode of Arrival: Wheelchair Timing Onset of Chief Complaint: 03/07/25 PMH PMH Past Medical History: Yes Past Medical History: Anemia, Anxiety, Arthritis, Coronary Artery Disease, Depression, Diabetes, Dyslipidemia, Hypertension and Renal Disease Past Medical History Comment: A-fib Past Surgical History: Yes Surgical History: Angioplasty/Stents, CABG/Valve Surgery, Hysterectomy, Ortho Surgery and Other Past Surgical History Comment: open heart surgery, right shoulder Family History History of Family Medical Conditions: Yes Family Medical History: Diabetes Mellitus, Cancer, Coronary Artery Disease and Hypertension Social History Does patient currently use any type of tobacco product: Yes Have you used tobacco products in the last 12 months: Yes Type of Tobacco Use: Cigarettes Alcohol Use: None Do you use any recreational Drugs:: No Lives With: Family Lives Where: Home Travel Risk Coronavirus risk:travel/contact w/high risk person: No Has patient experienced Coronavirus symptoms: No Infectious screening Have you traveled outside the country in the last 6 months?: No Isolation: Standard ROS Review of Systems Constitutional: Malaise Respiratoy: Short of Breath; negative Productive Cough Cardiovascular: Chest Pain All Other Systems: Reviewed and Negative PE Vital Signs Vitals: Vital Signs Temperature 97.6 F Pulse Rate 77 Pulse Rate 67 Pulse Rate 67 Pulse Rate 67 Pulse Rate 67 Pulse Rate 68 Pulse Rate 68 Pulse Rate 68 Pulse Rate 68 Pulse Rate 68 Pulse Rate 75 Pulse Rate 66 Pulse Rate 70 Pulse Rate 73 Respiratory Rate 15 Respiratory Rate 16 Respiratory Rate 18 Respiratory Rate 18 Respiratory Rate 15 Respiratory Rate 17 Blood Pressure 190/95 Blood Pressure 199/81 Blood Pressure 189/80 Blood Pressure 197/83 Blood Pressure 200/97 O2 Sat by Pulse Oximetry 97 O2 Sat by Pulse Oximetry 92 O2 Sat by Pulse Oximetry 93 O2 Sat by Pulse Oximetry 94 O2 Sat by Pulse Oximetry 92 O2 Sat by Pulse Oximetry 95 O2 Sat by Pulse Oximetry 95 O2 Sat by Pulse Oximetry 97 O2 Sat by Pulse Oximetry 92 O2 Sat by Pulse Oximetry 95 O2 Sat by Pulse Oximetry 96 O2 Sat by Pulse Oximetry 96 O2 Sat by Pulse Oximetry 96 O2 Sat by Pulse Oximetry 97 General Limitations: No Limitations General Appearance: Alert and In No Apparent Distress Head Head Exam: Normal Inspection Eyes Eye exam: Normal Appearance ENT ENT Exam: Normal Exam Neck Neck Exam: Normal Inspection Chest Chest Inspection: Normal Inspection Respiratory Respiratory Exam: Normal Lung Sounds Bilat Respiratory Exam: Bilateral: Clear to Auscultation Cardiovascular Cardiovascular Exam: Regular Rate and Normal Rhythm Abdominal Exam Abdominal Exam: Normal Inspection, Normal Bowel Sounds and Soft Rectal Rectal Exam: Deferred Extremities Extremities Exam: Normal Inspection Back Back Exam: Normal Inspection Neurologic Neurological Exam: Alert and Oriented X3 Psychiatric Psychiatric Exam: Normal Affect and Normal Mood Skin Skin Exam: Warm, Dry, Intact and Normal Color [facility] Labs Reviewed 04/04/25 08:56 04/04/25 08:56 Laboratory: WBC 6.1 X10^3/uL (3.6-10.0) 04/04/25 08:56 RBC 2.74 X10^6/uL (3.5-5.4) L 04/04/25 08:56 Hgb 7.8 g/dL (12.0-16.0) L 04/04/25 08:56 Hct 23.6 % (36.0-47.0) L 04/04/25 08:56 MCV 86.3 fL (80.0-100.0) 04/04/25 08:56 MCH 28.5 pg (27.0-34.0) 04/04/25 08:56 MCHC 33.0 g/dL (33.0-35.0) 04/04/25 08:56 RDW 15.2 % (11.6-16.5) 04/04/25 08:56 Plt Count 367 X10^3/uL (150.0-450.0) 04/04/25 08:56 MPV 6.7 fL (7.4-11.0) L 04/04/25 08:56 Neut % (Auto) 65.3 % (42.0-75.0) 04/04/25 08:56 Lymph % (Auto) 22.8 % (21.0-51.0) 04/04/25 08:56 [place] % (Auto) 8.3 % (0.0-13.0) 04/04/25 08:56 Eos % (Auto) 2.5 % (0.9-2.9) 04/04/25 08:56 Baso % (Auto) 1.1 % (0.2-1.0) H 04/04/25 08:56 Neut # (Auto) 4.0 x10^3/uL (2.2-4.8) 04/04/25 08:56 Lymph # (Auto) 1.4 X10^3/uL (1.3-2.9) 04/04/25 08:56 [place] # (Auto) 0.5 x10^3/uL (0.3-0.8) 04/04/25 08:56 Eos # (Auto) 0.1 x10^3/uL (0.0-0.2) 04/04/25 08:56 Baso # (Auto) 0.1 X10^3/uL (0.0-0.1) 04/04/25 08:56 Absolute Nucleated RBC 0.0 /100WBC 04/04/25 08:56 Sodium 139 mmol/L (136-145) 04/04/25 08:56 Corrected Sodium 140 mmol/L (136-145) 04/04/25 08:56 Potassium 4.0 mmol/L (3.5-5.1) 04/04/25 08:56 Chloride 103 mmol/L (98-107) 04/04/25 08:56 Carbon Dioxide 28.3 mmol/L (21-32) 04/04/25 08:56 BUN 41 mg/dL (7-18) H 04/04/25 08:56 Creatinine 2.77 mg/dL (0.55-1.02) H 04/04/25 08:56 Est GFR (MDRD) Af Amer 21 (>60) L 04/04/25 08:56 Est GFR (MDRD) Non-Af 18 (>60) L 04/04/25 08:56 Glucose 133 mg/dL (65-99) H 04/04/25 08:56 Calcium 8.7 mg/dL (8.5-10.1) 04/04/25 08:56 Corrected Calcium 9.4 mg/dL (8.5-10.1) 04/04/25 08:56 Total Bilirubin 0.30 mg/dL (0.2-1.0) 04/04/25 08:56 AST 14 Units/L (15-37) L 04/04/25 08:56 ALT 11 Units/L (12-78) L 04/04/25 08:56 Alkaline Phosphatase 37 Units/L (46-116) L 04/04/25 08:56 Creatine Kinase 33 Units/L (26-192) 04/04/25 08:56 Troponin I High Sens 14.7 ng/L (4.0-60.0) 04/04/25 11:08 Total Protein 7.8 g/dL (6.4-8.2) 04/04/25 08:56 Albumin 3.1 g/dL (3.4-5.0) L 04/04/25 08:56 Globulin 4.7 g/dL (2.5-4.5) H 04/04/25 08:56 Albumin/Globulin Ratio 0.7 Ratio (1.1-2.1) L 04/04/25 08:56 Lipase 91 Units/L (16-77) H 04/04/25 09:04 Specimen Type Clean catch urine 04/04/25 11:21 Urine Color Yellow (YELLOW) 04/04/25 11:21 Urine Appearance Clear (CLEAR) 04/04/25 11:21 Urine pH 6.0 (5.0 - 8.0) 04/04/25 11:21 Ur Specific [place] 1.020 (1.000-1.030) 04/04/25 11:21 Urine Protein 3+ (NEGATIVE) 04/04/25 11:21 Urine Glucose (UA) Negative (NEGATIVE) 04/04/25 11:21 Urine Ketones Negative (NEGATIVE) 04/04/25 11:21 Urine Blood Negative (NEGATIVE) 04/04/25 11:21 Urine Nitrite Negative (NEGATIVE) 04/04/25 11:21 Urine Bilirubin Negative (NEGATIVE) 04/04/25 11:21 Urine Urobilinogen Normal (NORMAL) 04/04/25 11:21 Ur Leukocyte Esterase Negative (NEGATIVE) 04/04/25 11:21 Urine RBC None seen /HPF (0-3) 04/04/25 11:21 Urine WBC 0-2 /HPF (0-5) 04/04/25 11:21 Ur Squamous Epith Cells Rare /HPF (NEGATIVE) 04/04/25 11:21 Urine Bacteria Negative /HPF (NEGATIVE) 04/04/25 11:21 Ur Culture Indicated? No/not indicated 04/04/25 11:21 Blood Type O POSITIVE 04/04/25 09:04 Antibody Screen Negative 04/04/25 09:04 Opioid Opioid Risk Tool Age (Chong box if 16-45): No History of Preadolescent Sexual Abuse: No Total: 0 Total Score Risk Category: Low Risk Copyright: Pillo WATSON predicting aberrant behaviors Discharge Plan Diagnosis Discharge Problem: Symptomatic anemia, CKD (chronic kidney disease) Discharge Plan Patient Disposition: ADMITTED INPATIENT Condition: Stable Orders to Discharge Patient Discharge Orders: Transfer (Routine); Ordered 04/04/25 Ordered By: Pérez Reich Provider Note Additional Notes Pt accepted by Dr Collins.
[2025-04-04] MEDS ORDERED: NS 1,000 ML IV 1,000 ML ONE (10:30)
--- NOTE | 2025-04-04 10:30 | CT ---
EXAM: CT ABDOMEN AND PELVIS WITHOUT CONTRAST HISTORY: flank pain; COMPARISON: CT dated 03/07/2022. TECHNIQUE: Axial CT images were obtained through the abdomen and pelvis without contrast. Coronal and sagittal reformatted images were included. All CT scans at this facility use dose modulation, iterative reconstruction, and/or weight based dosing when appropriate to reduce radiation dose to as low as reasonably achievable. FINDINGS: Please note that without the use of intravenous contrast, evaluation of organ parenchyma is limited. Mild scarring in the lung bases. Unenhanced liver is unremarkable. Gallbladder and spleen are unremarkable. No biliary dilatation. Pancreas and adrenals unremarkable. 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 No hydronephrosis or perinephric stranding. No evidence of urinary calculi. Moderate to severe aortoiliac atherosclerosis without aneurysm. No lymphadenopathy. IMPRESSION: No acute findings in the abdomen or pelvis. THIS IS AN ELECTRONICALLY VERIFIED FINAL REPORT 04/04/2025 10:27 AM - Electronically signed by Mitchell Davey MD
[2025-04-04] MEDS: NS 1,000 ML IV 1,000 ML IV ONE (10:32)
[2025-04-04 11:36] LABS: BLOOD/HEMOGLOBIN,URINE NEGATIVE (NEGATIVE); LEUKOCYTE ESTERASE ,URINE NEGATIVE (NEGATIVE); NITRITES,URINE NEGATIVE (NEGATIVE)
[2025-04-04 11:44] LABS: APPEARANCE,URINE CLEAR (CLEAR)
[2025-04-04 11:45] LABS: SQUAMOUS EPITHELIAL CELL,UR RARE /HPF (NEGATIVE)
--- NOTE | 2025-04-04 13:08 | RAD ---
EXAM: CHEST, 1 VIEW HISTORY: chest pain; COMPARISON: 03/01/2025 TECHNIQUE: AP br.br.br.br and postsurgical changes from prior CABG. No focal consolidation. No large pleural effusion or visible pneumothorax. IMPRESSION: No acute cardiopulmonary findings. THIS IS AN ELECTRONICALLY VERIFIED FINAL REPORT 04/04/2025 12:55 PM - Electronically signed by Mitchell Davey MD
[2025-04-04] MEDS: APRESOLINE INJ 20 MG VIAL IVP ONE (13:14)
[2025-04-04 15:32] VITALS: BMI 29.5
[2025-04-04] MEDS ORDERED: ULTRAM PO PRN (16:54)
[2025-04-04] MEDS ORDERED: ZOFRAN INJ 4 MG VIAL IVP PRN (16:54)
[2025-04-04] MEDS ORDERED: ZOFRAN TAB 4 MG PO PRN (16:54)
[2025-04-04] MEDS: APRESOLINE TAB 25 MG PO SCH (17:12)
[2025-04-04] MEDS: NS 1,000 ML IV 1,000 ML IV SCH (17:21)
[2025-04-04] MEDS: NEURONTIN CAP 300 MG PO SCH (17:21)
[2025-04-04] MEDS: CATAPRES TAB 0.1 MG PO ONE ×2 (20:25→21:28)
[2025-04-04] MEDS ORDERED: PROTONIX TAB 40 MG PO SCH (21:00)
[2025-04-04] MEDS: ATIVAN TAB 1 MG PO SCH (21:37)
[2025-04-04] MEDS: TRICOR TAB 160 MG PO SCH (21:37)
[2025-04-04] MEDS: PROTONIX TAB 40 MG PO SCH (21:37)
[2025-04-04] MEDS: COREG TAB 25 MG PO SCH (21:37)
[2025-04-04] MEDS: PATIENT'S HOME MEDICATION (Icosapent Ethyl [Vascepa] 1 gram Capsule) PO SCH (23:30)
[2025-04-05 04:11] LABS: MEAN PLATELET VOLUME 7.0 fL (7.4-11.0); RED CELL DISTRIBUTION WIDTH 15.1 % (11.6-16.5)
[2025-04-05 04:20] LABS: COR CA(FOR HYPOALB) 9.3 mg/dL (8.5-10.1); CREATININE 2.48 mg/dL (0.55-1.02); eGFR NON BLACK RACES 20 (>60)
[2025-04-05] MEDS: APRESOLINE INJ 20 MG VIAL ONE (07:37)
[2025-04-05] MEDS: TYLENOL 325 MG TAB PO ONE (07:38)
[2025-04-05] MEDS: CONSULT PHARMACY - POTASSIUM & MAGNESIUM XX SCH (07:38)
[2025-04-05] MEDS: NS 250 ML IV 250 ML IV ONE ×2 (07:38→14:23)
[2025-04-05] MEDS ORDERED: XARELTO PO SCH (09:00)
[2025-04-05] MEDS: ESTRACE PO SCH (09:53)
[2025-04-05] MEDS: ALDACTONE TAB 25 MG PO SCH (09:54)
--- NOTE | 2025-04-05 13:08 | DR.H&P ---
H&P History & Physical for Day of: H&P Date: 04/05/25 Chief Complaint Chief Complaint: Patient is a 75 year old female with with a past medical history of arthritis, diabetes, Atrial fibrillation, hypertension, hyperlipidemia, CKD, and AVMs presenting with anemia. She reports having weakness and has noticed dark stools for the past 2 weeks. She has had an EGD a long time ago by GI-Dr Bergeron and was noted to have AVMs. Labs/imaging: WBC 5.4, hemoglobin 7.4, platelets 284, sodium 142, potassium 4.1, creatinine 2.48, glucose 105, iron 21, UA negative, Hemoccult pending, chest x-ray revealed no acute cardiopulmonary findings, CT abdomen pelvis also revealed no acute intra- abdominal findings, troponin negative. Patient was admitted for possible GI bleed, symptomatic anemia, acute on chronic renal failure. She was started on IV fluids normal saline at 80 mL/h. Will hold Xarelto. She received 1 unit of packed red blood cells, will order another 2 units packed red blood cells to be transfused. Will also order an iron infusion. She is currently on Protonix. Will also consult general surgery-Dr Foster for further evaluation. Restart other home medications. Otherwise continue with current treatment plan. Continue closely monitor and follow-up labs/imaging. Time spent for clinical assessment, reviewing labs/imaging, physical exam, decision making and documentation greater than 45 mins. Past Medical History Past Medical History: Anemia, Anxiety, Arthritis, Coronary Artery Disease, Depression, Diabetes, Dyslipidemia, Hypertension and Renal Disease Additional Medical History: BLEEDING AVMs Past Surgical History Surgical History: Angioplasty/Stents, CABG/Valve Surgery, Hysterectomy, Ortho Surgery and Other Family History Family Medical History: Diabetes Mellitus, Cancer, Coronary Artery Disease and Hypertension Social History Does patient currently use any type of tobacco product: Yes Have you used tobacco products in the last 12 months: Yes Type of Tobacco Use: Cigarettes How many years tobacco product used: 60 Alcohol Use: None Drug Use: None Medications Home Medications: Home Medications Medication Instructions Recorded Confirmed Type carvedilol 25 mg tablet 25 mg PO BID 12/24/23 History estradiol 0.5 mg tablet 0.5 mg PO QDAY 12/24/2303/19 History fenofibrate 160 mg tablet 160 mg PO HS 12/24/23 History gabapentin 300 mg capsule 300 mg PO TID 12/24/2304/04 History hydralazine 100 mg tablet 100 mg PO TID 12/24/2304/04 History icosapent ethyl 1 gram capsule 1 g PO BID 12/24/23 History (Vascepa) levocetirizine 5 mg tablet 5 mg PO DAILY 12/24/2303/19 History lorazepam 1 mg tablet 1 mg PO BID 12/24/23 5 History nifedipine 90 mg tablet,extended 90 mg PO QDAY 4 04/04/25 History release 24 hr pantoprazole 40 mg tablet,delayed 40 mg PO BID 4 04/04/25 History release rivaroxaban 20 mg tablet (Xarelto) 20 mg PO QDAY 12/2304/04/25 History spironolactone 25 mg tablet 25 mg PO QDAY 12/24/23 History evolocumab 140 mg/mL subcutaneous 140 mg subcut Q2W 04/04/25 History pen injector (Repatha SureClick) furosemide 20 mg tablet 20 mg PO 2XW PRN 04/04/25 History pantoprazole 40 mg tablet,delayed 40 mg PO BID 5 04/04/25 History release semaglutide 7 mg tablet (Rybelsus) 7 mg PO QDAY 04/04/25 History Allergies Allergies Allergy/AdvReac Type Severity Reaction Status Date / Time acetaminophen (From Percocet) Allergy Verified 04/04/25 08:56 oxycodone (From Percocet) Allergy Verified 04/04/25 08:56 Zceffhx-WBD-UdW Reductase Allergy Verified 04/04/25 08:56 Inhibitor (Jeapvao-Sdy-Ppw Reductase Inhibitor) Labs 04/05/25 03:48 04/05/25 03:48 Labs: Laboratory WBC 5.4 X10^3/uL (3.6-10.0) 04/05/25 03:48 RBC 2.63 X10^6/uL (3.5-5.4) L 04/05/25 03:48 Hgb 7.4 g/dL (12.0-16.0) L 04/05/25 03:48 Hct 22.3 % (36.0-47.0) L 04/05/25 03:48 MCV 85.1 fL (80.0-100.0) 04/05/25 03:48 MCH 28.3 pg (27.0-34.0) 04/05/25 03:48 MCHC 33.2 g/dL (33.0-35.0) 04/05/25 03:48 RDW 15.1 % (11.6-16.5) 04/05/25 03:48 Plt Count 284 X10^3/uL (150.0-450.0) 04/05/25 03:48 MPV 7.0 fL (7.4-11.0) L 04/05/25 03:48 Neut % (Auto) 60.6 % (42.0-75.0) 04/05/25 03:48 Lymph % (Auto) 24.1 % (21.0-51.0) 04/05/25 03:48 [place] % (Auto) 8.5 % (0.0-13.0) 04/05/25 03:48 Eos % (Auto) 2.9 % (0.9-2.9) 04/05/25 03:48 Baso % (Auto) 3.9 % (0.2-1.0) H 04/05/25 03:48 Neut # (Auto) 3.3 x10^3/uL (2.2-4.8) 04/05/25 03:48 Lymph # (Auto) 1.3 X10^3/uL (1.3-2.9) 04/05/25 03:48 [place] # (Auto) 0.5 x10^3/uL (0.3-0.8) 04/05/25 03:48 Eos # (Auto) 0.2 x10^3/uL (0.0-0.2) 04/05/25 03:48 Baso # (Auto) 0.2 X10^3/uL (0.0-0.1) H 04/05/25 03:48 Absolute Nucleated RBC 0.0 /100WBC 04/05/25 03:48 Sodium 142 mmol/L (136-145) 04/05/25 03:48 Corrected Sodium TNP 04/05/25 03:48 Potassium 4.1 mmol/L (3.5-5.1) 04/05/25 03:48 Chloride 108 mmol/L (98-107) H 04/05/25 03:48 Carbon Dioxide 28.1 mmol/L (21-32) 04/05/25 03:48 BUN 36 mg/dL (7-18) H 04/05/25 03:48 Creatinine 2.48 mg/dL (0.55-1.02) H 04/05/25 03:48 Est GFR (MDRD) Af Amer 24 (>60) L 04/05/25 03:48 Est GFR (MDRD) Non-Af 20 (>60) L 04/05/25 03:48 Glucose 105 mg/dL (65-99) H 04/05/25 03:48 Calcium 8.1 mg/dL (8.5-10.1) L 04/05/25 03:48 Corrected Calcium 9.3 mg/dL (8.5-10.1) 04/05/25 03:48 Iron 21 ug/dL (50-175) L 04/04/25 08:59 TIBC 601 ug/dL (250-450) H 04/04/25 08:59 Ferritin 11 ng/mL (8-252) 04/04/25 08:59 Total Bilirubin 0.60 mg/dL (0.2-1.0) 04/05/25 03:48 AST 14 Units/L (15-37) L 04/05/25 03:48 ALT 10 Units/L (12-78) L 04/05/25 03:48 Alkaline Phosphatase 30 Units/L (46-116) L 04/05/25 03:48 Creatine Kinase 33 Units/L (26-192) 04/04/25 08:56 Troponin I High Sens 14.7 ng/L (4.0-60.0) 04/04/25 11:08 Total Protein 6.3 g/dL (6.4-8.2) L 04/05/25 03:48 Albumin 2.5 g/dL (3.4-5.0) L 04/05/25 03:48 Globulin 3.8 g/dL (2.5-4.5) 04/05/25 03:48 Albumin/Globulin Ratio 0.7 Ratio (1.1-2.1) L 04/05/25 03:48 Lipase 91 Units/L (16-77) H 04/04/25 09:04 Specimen Type Clean catch urine 04/04/25 11:21 Urine Color Yellow (YELLOW) 04/04/25 11:21 Urine Appearance Clear (CLEAR) 04/04/25 11:21 Urine pH 6.0 (5.0 - 8.0) 04/04/25 11:21 Ur Specific [place] 1.020 (1.000-1.030) 04/04/25 11:21 Urine Protein 3+ (NEGATIVE) 04/04/25 11:21 Urine Glucose (UA) Negative (NEGATIVE) 04/04/25 11:21 Urine Ketones Negative (NEGATIVE) 04/04/25 11:21 Urine Blood Negative (NEGATIVE) 04/04/25 11:21 Urine Nitrite Negative (NEGATIVE) 04/04/25 11:21 Urine Bilirubin Negative (NEGATIVE) 04/04/25 11:21 Urine Urobilinogen Normal (NORMAL) 04/04/25 11:21 Ur Leukocyte Esterase Negative (NEGATIVE) 04/04/25 11:21 Urine RBC None seen /HPF (0-3) 04/04/25 11:21 Urine WBC 0-2 /HPF (0-5) 04/04/25 11:21 Ur Squamous Epith Cells Rare /HPF (NEGATIVE) 04/04/25 11:21 Urine Bacteria Negative /HPF (NEGATIVE) 04/04/25 11:21 Ur Culture Indicated? No/not indicated 04/04/25 11:21 Blood Type O POSITIVE 04/04/25 09:04 Antibody Screen Negative 04/04/25 09:04 Crossmatch See Detail 04/04/25 09:04 Review of Systems Constitutional: Weakness Eyes: No Symptoms Reported ENT: No Symptoms Reported Respiratory: No Symptoms Reported Cardiovascular: No Symptoms Reported Gastrointestinal: Melena Genitourinary: No Symptoms Reported Musculoskeletal: No Symptoms Reported Skin: No Symptoms Reported Neurological: No Symptoms Reported Physical Exam Vital Signs: Vital Signs Temperature 98.1 F Pulse Rate [Bilateral Radial] 65 Respiratory Rate 16 Blood Pressure [Right Arm] 163/74 O2 Sat by Pulse Oximetry 98 Oriented: Normal Eyes: Normal Ear: Normal Nose: Normal Throat: Normal Respiratory: Clear Throughout Cardiovascular: Normal : Normal Auscultation: Bowel Sounds: Normal Palpation: Normal Tenderness: Normal Skin: Normal Musculoskeletal: Normal Psychiatric: Normal Mood Description: Calm and Appropriate Affect: Normal Speech Pattern: Clear and Appropriate Assessment/Plan (1) Acute GI bleeding: Status: Acute Plan: PPI, IVF, monitor hemoglobin Transfuse total 3u packed red blood cells Consult general surgery-Dr Cristian arevalo (2) Symptomatic anemia: Status: Acute Plan: order iron infusion (3) Acute renal failure superimposed on stage 3 chronic kidney disease: Qualifiers: Acute renal failure type: unspecified Chronic kidney disease stage 3 subtype: unspecified whether 3a or 3b Qualified Code(s): N17.9 - Acute kidney failure, unspecified; N18.30 - Chronic kidney disease, stage 3 unspecified Status: Acute (4) Generalized weakness: Status: Acute Review H&P Reviewed: Yes Patient was examined?: Yes
[2025-04-05] MEDS: NS 100 ML IV 100 ML with VENOFER 400 MG IV ONE (21:19)
[2025-04-06 06:03] LABS: MEAN PLATELET VOLUME 7.2 fL (7.4-11.0); RED CELL DISTRIBUTION WIDTH 15.0 % (11.6-16.5)
[2025-04-06 06:15] LABS: COR CA(FOR HYPOALB) 9.1 mg/dL (8.5-10.1); COR NA(FOR HYPERGLY) 142.0 mmol/L (136-145); CREATININE 2.31 mg/dL (0.55-1.02); eGFR NON BLACK RACES 22.0 (>60)
[2025-04-06] MEDS: LASIX PO PRN (09:07)
[2025-04-06 12:41] VITALS: BP 159/83; PULSE 52; RESP 18; TEMP 98.1; O2SAT 97
--- NOTE | 2025-04-07 09:31 | W.DIS.FURT ---
Summary of Discharge Discharge Summary of Date Date of Exam: 04/06/25 Admission Date Date of Admission: 04/04/25 Admission Diagnosis Patient Problems (Updated 04/05/25 @ 13:03 by Pelon Robertson MD) CKD (chronic kidney disease) (Acute) N18.9 Symptomatic anemia (Acute) D64.9 Hospital Course: Patient is a 75 year old female with with a past medical history of arthritis, diabetes, Atrial fibrillation, hypertension, hyperlipidemia, CKD, and AVMs presenting with symptomatic anemia due to possible GI bleed. She does have history of AVMs and has required transfusion in the past. She received IV fluids normal saline, PPI, and was transfused 2 units packed red blood cells and iron infusion. General surgery-Dr Foster was consulted and recommended monitoring and following up hemoglobin levels. Hemoglobin remained stable and symptoms significantly improved. Patient was stable for discharge and was instructed to follow-up with her GI-Dr Bergeron outpatient. Patient discharged in stable condition, instructed follow-up with PCP in 1 week. Vital Signs: Vital Signs (72 hours) 04/04/25 09:30 04/04/25 09:45 04/04/25 09:59 Temperature Pulse Rate 68 68 68 Pulse Rate [Bilateral Radial] Respiratory Rate 15 Blood Pressure Blood Pressure [Right Arm] O2 Sat by Pulse Oximetry 92 L 97 95 Oxygen Delivery Method Oxygen Flow Rate FIO2% 04/04/25 09:59 04/04/25 10:00 04/04/25 10:00 Temperature Pulse Rate 68 Pulse Rate [Bilateral Radial] Respiratory Rate Blood Pressure 197/83 189/80 Blood Pressure [Right Arm] O2 Sat by Pulse Oximetry 95 Oxygen Delivery Method Oxygen Flow Rate FIO2% 04/04/25 10:15 04/04/25 10:30 04/04/25 10:30 Temperature Pulse Rate 67 67 Pulse Rate [Bilateral Radial] Respiratory Rate Blood Pressure 199/81 Blood Pressure [Right Arm] O2 Sat by Pulse Oximetry 92 L 94 L Oxygen Delivery Method Oxygen Flow Rate FIO2% 04/04/25 10:45 04/04/25 11:00 04/04/25 11:00 Temperature Pulse Rate 67 67 Pulse Rate [Bilateral Radial] Respiratory Rate Blood Pressure 190/95 Blood Pressure [Right Arm] O2 Sat by Pulse Oximetry 93 L 92 L Oxygen Delivery Method Oxygen Flow Rate FIO2% 04/04/25 11:18 04/04/25 16:00 04/04/25 16:40 Temperature 98.4 F Pulse Rate 77 Pulse Rate [Bilateral Radial] 79 Respiratory Rate 18 Blood Pressure Blood Pressure [Right Arm] 186/77 O2 Sat by Pulse Oximetry 97 94 L Oxygen Delivery Method Room Air Nasal Cannula Oxygen Flow Rate 2 FIO2% 28 04/04/25 17:10 04/04/25 17:12 04/04/25 17:33 Temperature 98.3 F Pulse Rate Pulse Rate [Bilateral Radial] 76 Respiratory Rate 20 Blood Pressure Blood Pressure [Right Arm] 180/62 179/72 O2 Sat by Pulse Oximetry 97 Oxygen Delivery Method Room Air Nasal Cannula Oxygen Flow Rate 2 FIO2% 04/04/25 17:43 04/04/25 17:53 04/04/25 18:03 Temperature Pulse Rate Pulse Rate [Bilateral Radial] Respiratory Rate Blood Pressure Blood Pressure [Right Arm] 176/70 179/81 144/56 O2 Sat by Pulse Oximetry Oxygen Delivery Method Oxygen Flow Rate FIO2% 04/04/25 19:00 04/04/25 20:00 04/04/25 20:22 Temperature 98.2 F Pulse Rate Pulse Rate [Bilateral Radial] 76 Respiratory Rate 18 Blood Pressure Blood Pressure [Right Arm] 168/56 O2 Sat by Pulse Oximetry 95 Oxygen Delivery Method Room Air Nasal Cannula Nasal Cannula Oxygen Flow Rate 2 2 FIO2% 28 04/04/25 21:30 04/04/25 22:40 04/05/25 04:00 Temperature 97.8 F Pulse Rate Pulse Rate [Bilateral Radial] 71 63 Respiratory Rate 14 Blood Pressure Blood Pressure [Right Arm] 178/60 170/60 172/79 O2 Sat by Pulse Oximetry 100 Oxygen Delivery Method Nasal Cannula Oxygen Flow Rate 2 FIO2% 04/05/25 07:00 04/05/25 08:00 04/05/25 12:00 Temperature 98.1 F 98.0 F Pulse Rate Pulse Rate [Bilateral Radial] 65 69 Respiratory Rate 16 18 Blood Pressure Blood Pressure [Right Arm] 163/74 164/68 O2 Sat by Pulse Oximetry 98 95 Oxygen Delivery Method Nasal Cannula Room Air Room Air Oxygen Flow Rate 2 FIO2% 04/05/25 16:00 04/05/25 19:00 04/05/25 20:00 Temperature 98.1 F 98.7 F Pulse Rate Pulse Rate [Bilateral Radial] 67 67 Respiratory Rate 18 18 Blood Pressure Blood Pressure [Right Arm] 149/67 155/70 O2 Sat by Pulse Oximetry 95 94 L Oxygen Delivery Method Room Air Nasal Cannula Room Air Oxygen Flow Rate 2 FIO2% 04/05/25 20:38 04/06/25 00:00 04/06/25 04:00 Temperature 98.1 F 98.4 F Pulse Rate Pulse Rate [Bilateral Radial] 72 72 Respiratory Rate 18 18 Blood Pressure Blood Pressure [Right Arm] 152/65 154/68 O2 Sat by Pulse Oximetry 94 L 94 L Oxygen Delivery Method Nasal Cannula Room Air Room Air Oxygen Flow Rate 2 FIO2% 28 04/06/25 07:00 04/06/25 08:00 04/06/25 09:17 Temperature 98.5 F Pulse Rate Pulse Rate [Bilateral Radial] 69 Respiratory Rate 17 Blood Pressure Blood Pressure [Right Arm] 177/80 O2 Sat by Pulse Oximetry 94 L Oxygen Delivery Method Nasal Cannula Room Air Room Air Oxygen Flow Rate 2 2 FIO2% 28 04/06/25 12:00 Temperature 98.1 F Pulse Rate Pulse Rate [Bilateral Radial] 52 L Respiratory Rate 18 Blood Pressure Blood Pressure [Right Arm] 159/83 O2 Sat by Pulse Oximetry 97 Oxygen Delivery Method Room Air Oxygen Flow Rate FIO2% Labs: Laboratory Last Values WBC 7.8 X10^3/uL (3.6-10.0) 04/06/25 05:13 RBC 3.28 X10^6/uL (3.5-5.4) L 04/06/25 05:13 Hgb 9.8 g/dL (12.0-16.0) L 04/06/25 14:58 Hct 30.0 % (36.0-47.0) L 04/06/25 14:58 MCV 85.4 fL (80.0-100.0) 04/06/25 05:13 MCH 28.5 pg (27.0-34.0) 04/06/25 05:13 MCHC 33.3 g/dL (33.0-35.0) 04/06/25 05:13 RDW 15.0 % (11.6-16.5) 04/06/25 05:13 Plt Count 274 X10^3/uL (150.0-450.0) 04/06/25 05:13 MPV 7.2 fL (7.4-11.0) L 04/06/25 05:13 Neut % (Auto) 71.8 % (42.0-75.0) 04/06/25 05:13 Lymph % (Auto) 15.8 % (21.0-51.0) L 04/06/25 05:13 [place] % (Auto) 8.4 % (0.0-13.0) 04/06/25 05:13 Eos % (Auto) 2.9 % (0.9-2.9) 04/06/25 05:13 Baso % (Auto) 1.1 % (0.2-1.0) H 04/06/25 05:13 Neut # (Auto) 5.6 x10^3/uL (2.2-4.8) H 04/06/25 05:13 Lymph # (Auto) 1.2 X10^3/uL (1.3-2.9) L 04/06/25 05:13 [place] # (Auto) 0.7 x10^3/uL (0.3-0.8) 04/06/25 05:13 Eos # (Auto) 0.2 x10^3/uL (0.0-0.2) 04/06/25 05:13 Baso # (Auto) 0.1 X10^3/uL (0.0-0.1) 04/06/25 05:13 Absolute Nucleated RBC 0.2 /100WBC 04/06/25 05:13 Sodium 141 mmol/L (136-145) 04/06/25 05:13 Corrected Sodium 142 mmol/L (136-145) 04/06/25 05:13 Potassium 4.1 mmol/L (3.5-5.1) 04/06/25 05:13 Chloride 108 mmol/L (98-107) H 04/06/25 05:13 Carbon Dioxide 27.5 mmol/L (21-32) 04/06/25 05:13 BUN 30 mg/dL (7-18) H 04/06/25 05:13 Creatinine 2.31 mg/dL (0.55-1.02) H 04/06/25 05:13 Est GFR (MDRD) Af Amer 26 (>60) L 04/06/25 05:13 Est GFR (MDRD) Non-Af 22 (>60) L 04/06/25 05:13 Glucose 124 mg/dL (65-99) H 04/06/25 05:13 POC Glucose (mg/dL) 119 mg/dL (65-99) H 04/06/25 05:30 Calcium 8.0 mg/dL (8.5-10.1) L 04/06/25 05:13 Corrected Calcium 9.1 mg/dL (8.5-10.1) 04/06/25 05:13 Iron 21 ug/dL (50-175) L 04/04/25 08:59 TIBC 601 ug/dL (250-450) H 04/04/25 08:59 Ferritin 11 ng/mL (8-252) 04/04/25 08:59 Total Bilirubin 0.30 mg/dL (0.2-1.0) 04/06/25 05:13 AST 16 Units/L (15-37) 04/06/25 05:13 ALT 8 Units/L (12-78) L 04/06/25 05:13 Alkaline Phosphatase 28 Units/L (46-116) L 04/06/25 05:13 Creatine Kinase 33 Units/L (26-192) 04/04/25 08:56 Troponin I High Sens 14.7 ng/L (4.0-60.0) 04/04/25 11:08 Total Protein 6.3 g/dL (6.4-8.2) L 04/06/25 05:13 Albumin 2.6 g/dL (3.4-5.0) L 04/06/25 05:13 Globulin 3.7 g/dL (2.5-4.5) 04/06/25 05:13 Albumin/Globulin Ratio 0.7 Ratio (1.1-2.1) L 04/06/25 05:13 Lipase 91 Units/L (16-77) H 04/04/25 09:04 Specimen Type Clean catch urine 04/04/25 11:21 Urine Color Yellow (YELLOW) 04/04/25 11:21 Urine Appearance Clear (CLEAR) 04/04/25 11:21 Urine pH 6.0 (5.0 - 8.0) 04/04/25 11:21 Ur Specific [place] 1.020 (1.000-1.030) 04/04/25 11:21 Urine Protein 3+ (NEGATIVE) 04/04/25 11:21 Urine Glucose (UA) Negative (NEGATIVE) 04/04/25 11:21 Urine Ketones Negative (NEGATIVE) 04/04/25 11:21 Urine Blood Negative (NEGATIVE) 04/04/25 11:21 Urine Nitrite Negative (NEGATIVE) 04/04/25 11:21 Urine Bilirubin Negative (NEGATIVE) 04/04/25 11:21 Urine Urobilinogen Normal (NORMAL) 04/04/25 11:21 Ur Leukocyte Esterase Negative (NEGATIVE) 04/04/25 11:21 Urine RBC None seen /HPF (0-3) 04/04/25 11:21 Urine WBC 0-2 /HPF (0-5) 04/04/25 11:21 Ur Squamous Epith Cells Rare /HPF (NEGATIVE) 04/04/25 11:21 Urine Bacteria Negative /HPF (NEGATIVE) 04/04/25 11:21 Ur Culture Indicated? No/not indicated 04/04/25 11:21 Stl Occult Blood (IFOB) Negative (NEGATIVE) 04/06/25 09:15 Blood Type O POSITIVE 04/04/25 09:04 Antibody Screen Negative 04/04/25 09:04 Crossmatch See Detail 04/04/25 09:04 Reason For Visit: SYMPTOMATIC ANEMIA Discharge Date Discharge Date: 04/06/25 Discharge Diagnosis All Active Problems (Updated 04/05/25 @ 13:03 by Pelon Robertson MD) CKD (chronic kidney disease) (Acute) Symptomatic anemia (Acute) CHF exacerbation (Acute) Hypertensive emergency without congestive heart failure (Acute) Acute renal failure superimposed on stage 3 chronic kidney disease (Acute) Acute GI bleeding (Acute) Generalized weakness (Acute) Anemia (Acute) Anemia (Acute) Plan of Treatment: Continue with present treatment and follow up plan. Pt is to keep follow up appointment as instructed and take medications as ordered. Discharge Medications Discharge Medications: acetaminophen (From Percocet) Allergy (Verified 04/04/25 08:56) oxycodone (From Percocet) Allergy (Verified 04/04/25 08:56) Ndokmlc-BPO-MeG Reductase Inhibitor (Tngejld-Dus-Vvd Reductase Inhibitor) Allergy (Verified 04/04/25 08:56) CONTINUE taking the following medications evolocumab 140 mg/mL subcutaneous pen injector (Repatha SureClick) 140 mg subcut Q2W 04/04/25 [History] furosemide 20 mg tablet 20 mg PO 2XW PRN 04/04/25 [History] pantoprazole 40 mg tablet,delayed release 40 mg PO BID 04/04/25 [History] semaglutide 7 mg tablet (Rybelsus) 7 mg PO QDAY 04/04/25 [History] Discharge Disposition Assessment: No distress noted. Discharge Plan Discharge Plan Hospital Course: Patient is a 75 year old female with with a past medical history of arthritis, diabetes, Atrial fibrillation, hypertension, hyperlipidemia, CKD, and AVMs presenting with symptomatic anemia due to possible GI bleed. She does have history of AVMs and has required transfusion in the past. She received IV fluids normal saline, PPI, and was transfused 2 units packed red blood cells and iron infusion. General surgery-Dr Foster was consulted and recommended monitoring and following up hemoglobin levels. Hemoglobin remained stable and symptoms significantly improved. Patient was stable for discharge and was instructed to follow-up with her GI-Dr Bergeron outpatient. Patient discharged in stable condition, instructed follow-up with PCP in 1 week. Patient Disposition: HOME HEALTH SERVICE Condition: Stable Health Concerns: Post Hospitalization: new medications and changes needed to prevent readmission or further decline. Pt educated and given instructions on all concerns. Care Plan Goals: Problem: Fluid Volume Deficit Goal: Maintain/Improved Adequate hydration. Instructions: Follow provided instructions. Follow up with primary physician as directed. Contact primary care physician or report to the closest Emergency Room if condition worsens. Plan of Treatment: Continue with present treatment and follow up plan. Pt is to keep follow up appointment as instructed and take medications as ordered. Assessment: No distress noted. Prescriptions: No Action carvedilol 25 mg tablet 25 mg PO BID spironolactone 25 mg tablet 25 mg PO QDAY nifedipine 90 mg tablet extended release 24hr 90 mg PO QDAY pantoprazole 40 mg tablet,delayed release (DR/EC) 40 mg PO BID estradiol 0.5 mg tablet 0.5 mg PO QDAY lorazepam 1 mg tablet 1 mg PO BID Xarelto 20 mg tablet 20 mg PO QDAY hydralazine 100 mg Tablet 100 mg PO TID gabapentin 300 mg Capsule 300 mg PO TID fenofibrate 160 mg Tablet 160 mg PO HS levocetirizine 5 mg Tablet 5 mg PO DAILY icosapent ethyl [Vascepa] 1 gram Capsule 1 g PO BID pantoprazole 40 mg tablet,delayed release (DR/EC) 40 mg PO BID furosemide 20 mg tablet 20 mg PO 2XW PRN Repatha SureClick 140 mg/mL pen injector 140 mg SUBCUT Q2W Patient Comments: [NO ORIGINAL SIG] Rybelsus 7 mg tablet 7 mg PO QDAY Follow ups/Referrals Follow ups/Referrals: [facility] [Other] - 1 WEEK CHILANGO VALLADARES [STAFF PHYSICIAN, Unknown] - 1 WEEK Roddy Jasmine [Primary Care Provider, MEDICAL] - 04/16/25 9:15 am Instructions Instructions: Health Risks of Smoking, Anemia, Weakness: What to Know, Dboe-gt-Dzkc, Home Oxygen Use, Adult, Chronic Kidney Disease, Adult Stand Alone Forms: Find Help Web Site, [facility] Follow Up Care Print Language: CAMEROONIAN
== END 2025-04-06 15:55 | disposition home health service (06) ==
LOC: ER 08:33 → MED/SURG 08:33
PROVIDERS: ADMIT Surgery; ATTEND Internal Medicine
DX: E83.51 Hypocalcemia; F41.8 Other specified anxiety disorders; E78.5 Hyperlipidemia, unspecified; R94.31 Abnormal electrocardiogram [ECG] [EKG]; I25.810 Atherosclerosis of coronary artery bypass graft(s) without angina pectoris; R53.1 Weakness; Z95.2 Presence of prosthetic heart valve; D64.89 Other specified anemias; R07.89 Other chest pain; E11.65 Type 2 diabetes mellitus with hyperglycemia; I48.91 Unspecified atrial fibrillation; R94.4 Abnormal results of kidney function studies; R10.84 Generalized abdominal pain; Q27.33 Arteriovenous malformation of digestive system vessel; N17.8 Other acute kidney failure; R26.89 Other abnormalities of gait and mobility; I10 Essential (primary) hypertension; K92.2 Gastrointestinal hemorrhage, unspecified; N18.30 Chronic kidney disease, stage 3 unspecified

== ENCOUNTER 2025-06-04 11:55 | Observation (INO) ==
--- NOTE | 2025-06-04 13:20 | DR.DIZZY ---
HPI Time seen Time Seen by Provider: 06/04/25 12:05 PCP Primary Care Physician: jose Complaint Chief Complaint Doctor Comments: Patient to ED from home POV complains of weakness, falls (last one couple of days ago), excessive sleepiness. sick on her stomach. has been passing dark colored stool for the last 2 weeks. nausea with vomiting mostly bile. skin color pale and mucous membranes are also pale. bm's are not tarry just dark Family called PCP who requested to come to the ED. History of anemia may need transfusion Chief Complaint:: complains of weakness, falls (last one couple of days ago), excessive sleepiness. sick on her stomach. has been passing dark colored stool for the last 2 weeks. nausea with vomiting mostly bile. skin color pale and mucous membranes are also pale. bm's are not tarry just dark COVID-19 Coronavirus risk:travel/contact w/high risk person: No Has patient experienced Coronavirus symptoms: No Mode of Arrival Mode of Arrival: Wheelchair Timing Onset of Chief Complaint: 05/21/25 Symptom Onset: Unknown Location of Weakness Weakness Location: Generalized Context History of: Anemia, DM and GI Bleed Stroke Symptoms: None Associated signs and symptoms Associated Signs and Symptoms: Weak and Nausea PMH PMH Past Medical History: Yes Past Medical History: Anemia, Anxiety, Arthritis, Coronary Artery Disease, Depression, Diabetes, Dyslipidemia, Hypertension and Renal Disease Past Surgical History: Yes Surgical History: Angioplasty/Stents, CABG/Valve Surgery, Hysterectomy, Ortho Surgery and Other Family History History of Family Medical Conditions: Yes Family Medical History: Cancer and Hypertension Social History Type of Tobacco Use: Cigarettes Alcohol Use: None Do you use any recreational Drugs:: No Lives With: Family Lives Where: Home Travel Risk Coronavirus risk:travel/contact w/high risk person: No Has patient experienced Coronavirus symptoms: No Infectious screening In the last 2 months have you had wt loss of >10#?: NO Have you had fever, night sweats or hemotysis?: No Have you traveled outside the country in the last 6 months?: No Isolation: Standard ROS Review of Systems Constitutional: See HPI and Other (generalized weakness) Eyes: No Symptoms Reported ENTM: No Symptoms Reported Respiratoy: No Symptoms Reported Cardiovascular: No Symptoms Reported Gastrointestinal/Abdominal: No Symptoms Reported Genitourinary: No Symptoms Reported Neurological: No Symptoms Reported Musculoskeletal: No Symptoms Reported Integumentary: No Symptoms Reported Hematologic/Lymphatic: No Symptoms Reported Endocrine: No Symptoms Reported Psychiatric: No Symptoms Reported All Other Systems: Reviewed and Negative PE Vital Signs Vitals: Vital Signs Temperature 98.5 F Pulse Rate 62 Respiratory Rate 18 Blood Pressure 170/74 O2 Sat by Pulse Oximetry 96 General Limitations: No Limitations General Appearance: Alert and In No Apparent Distress Head Head Exam: Normal Inspection Eyes Eye exam: Normal Appearance ENT ENT Exam: Normal Exam, Normal Oropharynx and Normal External Ear Exam Neck Neck Exam: Normal Inspection and Full ROM Chest Chest Inspection: Normal Inspection Respiratory Respiratory Exam: Normal Lung Sounds Bilat Cardiovascular Cardiovascular Exam: Regular Rate and Normal Rhythm Abdominal Exam Abdominal Exam: Normal Inspection, Normal Bowel Sounds and Soft Rectal Rectal Exam: Deferred Extremeties Extremities Exam: Normal Inspection and Full ROM Back Back Exam: Normal Inspection and Full ROM Neurologic Neurological Exam: Alert and Oriented X3 Psychiatric Psychiatric Exam: Normal Affect and Normal Mood Skin Skin Exam: Warm, Dry, Intact, Normal Color and Pallor COURSE Treatment Treatment: Discussed with patient reviewed findings consents to admission discussed with hospitalist will admit ROR Labs Reviewed 06/04/25 13:10 06/04/25 13:10 Laboratory: WBC 4.7 X10^3/uL (3.6-10.0) 06/04/25 13:10 RBC 2.36 X10^6/uL (3.5-5.4) L 06/04/25 13:10 Hgb 5.5 g/dL (12.0-16.0) L* 06/04/25 13:10 Hct 18.2 % (36.0-47.0) L* 06/04/25 13:10 MCV 77.3 fL (80.0-100.0) L 06/04/25 13:10 MCH 23.2 pg (27.0-34.0) L 06/04/25 13:10 MCHC 30.0 g/dL (33.0-35.0) L 06/04/25 13:10 RDW 20.7 % (11.6-16.5) H 06/04/25 13:10 Plt Count 242 X10^3/uL (150.0-450.0) 06/04/25 13:10 Plt Count Comment Adequate (ADEQUATE) 06/04/25 13:10 MPV 8.2 fL (7.4-11.0) 06/04/25 13:10 Neut % (Auto) 59.8 % (42.0-75.0) 06/04/25 13:10 Lymph % (Auto) 26.8 % (21.0-51.0) 06/04/25 13:10 [place] % (Auto) 8.4 % (0.0-13.0) 06/04/25 13:10 Eos % (Auto) 3.7 % (0.9-2.9) H 06/04/25 13:10 Baso % (Auto) 1.3 % (0.2-1.0) H 06/04/25 13:10 Neut # (Auto) 2.8 x10^3/uL (2.2-4.8) 06/04/25 13:10 Lymph # (Auto) 1.3 X10^3/uL (1.3-2.9) 06/04/25 13:10 [place] # (Auto) 0.4 x10^3/uL (0.3-0.8) 06/04/25 13:10 Eos # (Auto) 0.2 x10^3/uL (0.0-0.2) 06/04/25 13:10 Baso # (Auto) 0.1 X10^3/uL (0.0-0.1) 06/04/25 13:10 Absolute Nucleated RBC 0.3 /100WBC 06/04/25 13:10 Plt Morphology Comment Normal (NORMAL) 06/04/25 13:10 RBC Morphology Abnormal (NORMAL) A 06/04/25 13:10 Hypochromasia 1+ A 06/04/25 13:10 Poikilocytosis Slight A 06/04/25 13:10 Anisocytosis 1+ A 06/04/25 13:10 Microcytosis Slight A 06/04/25 13:10 Target Cells Slight A 06/04/25 13:10 Sodium 141 mmol/L (136-145) 06/04/25 13:10 Corrected Sodium TNP 06/04/25 13:10 Potassium 4.7 mmol/L (3.5-5.1) 06/04/25 13:10 Chloride 107 mmol/L (98-107) 06/04/25 13:10 Carbon Dioxide 28.7 mmol/L (21-32) 06/04/25 13:10 BUN 52 mg/dL (7-18) H 06/04/25 13:10 Creatinine 4.05 mg/dL (0.55-1.02) H 06/04/25 13:10 Est GFR (MDRD) Af Amer 14 (>60) L 06/04/25 13:10 Est GFR (MDRD) Non-Af 11 (>60) L 06/04/25 13:10 Glucose 110 mg/dL (65-99) H 06/04/25 13:10 Calcium 8.3 mg/dL (8.5-10.1) L 06/04/25 13:10 Corrected Calcium 9.1 mg/dL (8.5-10.1) 06/04/25 13:10 Total Bilirubin 0.60 mg/dL (0.2-1.0) 06/04/25 13:10 AST 392 Units/L (15-37) H 06/04/25 13:10 ALT 254 Units/L (12-78) H 06/04/25 13:10 Alkaline Phosphatase 24 Units/L (46-116) L 06/04/25 13:10 Total Protein 6.4 g/dL (6.4-8.2) 06/04/25 13:10 Albumin 3.0 g/dL (3.4-5.0) L 06/04/25 13:10 Globulin 3.4 g/dL (2.5-4.5) 06/04/25 13:10 Albumin/Globulin Ratio 0.9 Ratio (1.1-2.1) L 06/04/25 13:10 Opioid Opioid Risk Tool Age (Chong box if 16-45): No History of Preadolescent Sexual Abuse: No Total: 0 Total Score Risk Category: Low Risk Copyright: Pillo WATSON predicting aberrant behaviors Discharge Plan Diagnosis Discharge Problem: Anemia, Generalized weakness Discharge Plan Patient Disposition: 09 ADMITTED INPATIENT Condition: Stable Prescriptions: No Action carvedilol 25 mg tablet 25 mg PO BID spironolactone 25 mg tablet 25 mg PO QDAY nifedipine 90 mg tablet extended release 24hr 90 mg PO QDAY pantoprazole 40 mg tablet,delayed release (DR/EC) 40 mg PO BID estradiol 0.5 mg tablet 0.5 mg PO QDAY lorazepam 1 mg tablet 1 mg PO BID Xarelto 20 mg tablet 20 mg PO QDAY hydralazine 100 mg Tablet 100 mg PO TID gabapentin 300 mg Capsule 300 mg PO TID fenofibrate 160 mg Tablet 160 mg PO HS levocetirizine 5 mg Tablet 5 mg PO DAILY icosapent ethyl [Vascepa] 1 gram Capsule 1 g PO BID pantoprazole 40 mg tablet,delayed release (DR/EC) 40 mg PO BID furosemide 20 mg tablet 20 mg PO 2XW PRN Repatha SureClick 140 mg/mL pen injector 140 mg SUBCUT Q2W Patient Comments: [NO ORIGINAL SIG] Rybelsus 7 mg tablet 7 mg PO QDAY Health Concerns: Post Hospitalization: new medications and changes needed to prevent readmission or further decline. Pt educated and given instructions on all concerns. Plan of Treatment: Continue with present treatment and follow up plan. Pt is to keep follow up appointment as instructed and take medications as ordered. Orders to Discharge Patient Discharge Orders: Transfer (Routine); Ordered 06/04/25 Ordered By: Beni Ferris Follow ups/Referrals Follow ups/Referrals: Roddy Jasmine [Primary Care Provider, MEDICAL] - 3 days Instructions Print Language: IRANIAN
[2025-06-04 13:55] LABS: MEAN PLATELET VOLUME 8.2 fL (7.4-11.0); RED CELL DISTRIBUTION WIDTH 20.7 % (11.6-16.5)
[2025-06-04 14:07] LABS: PLATELET MORPHOLOGY COMMENT NORMAL (NORMAL)
[2025-06-04 14:14] LABS: COR CA(FOR HYPOALB) 9.1 mg/dL (8.5-10.1); CREATININE 4.05 mg/dL (0.55-1.02); eGFR NON BLACK RACES 11 (>60)
[2025-06-04] MEDS ORDERED: LASIX PO PRN (16:30)
[2025-06-04] MEDS ORDERED: NORCO 5/325 MG TAB PO PRN (16:30)
[2025-06-04] MEDS ORDERED: TYLENOL 325 MG TAB PO PRN (16:30)
[2025-06-04] MEDS ORDERED: ULTRAM PO PRN (16:30)
[2025-06-04] MEDS ORDERED: CONSULT PHARMACY - POTASSIUM & MAGNESIUM XX SCH (16:30)
[2025-06-04] MEDS ORDERED: XOPENEX 1.25 MG/3 ML NEBULE NEB PRN (16:51)
[2025-06-04] MEDS: PROTONIX INJ 40 MG VIAL IVP SCH (18:00)
[2025-06-04] MEDS: NS 250 ML IV 250 ML IV ONE (18:52)
[2025-06-04] MEDS: NEURONTIN CAP 300 MG PO SCH (21:05)
[2025-06-04] MEDS: APRESOLINE TAB 25 MG PO SCH (21:05)
[2025-06-04] MEDS: COLACE CAP 100 MG PO SCH (22:51)
[2025-06-05 06:01] LABS: MEAN PLATELET VOLUME 8.0 fL (7.4-11.0); RED CELL DISTRIBUTION WIDTH 19.1 % (11.6-16.5)
[2025-06-05 06:15] LABS: COR CA(FOR HYPOALB) 9.0 mg/dL (8.5-10.1); CREATININE 3.74 mg/dL (0.55-1.02); eGFR NON BLACK RACES 12 (>60)
[2025-06-05] MEDS ORDERED: PATIENT'S HOME MEDICATION (Levocetirizine 5 mg Tablet) PO SCH (09:00)
--- NOTE | 2025-06-05 10:55 | DR.H&P ---
H&P History & Physical for Day of: H&P Date: 06/05/25 Chief Complaint Chief Complaint: weakness, dark stools History of Present Illness History of Present Illness: Patient is a 75-year-old female with a past medical history of CAD, CVA, hypertension, type 2 diabetes, CKD, AVMs, GI bleed and anemia presented with worsening weakness and dark stools. ER workup showed hemoglobin 5.5. Patient was admitted in March for similar symptoms. She states that she did not follow-up with GI since then. She reports intermittent history of dark stools. She has not had EGD/colonoscopy in years. She was admitted for blood transfusion and further workup. She did receive 2 units overnight, her hemoglobin is 7.4. She does report taking Xarelto and Plavix. Her renal function was also worse on admission, has been improving. Labs/imaging reviewed: - WBC 5.1 hemoglobin 7.4 platelet 213 BUN 51 creatinine 3.74 Plan: Admit to [facility]. Order stool occult, anemia panel. Consult Dr. Vera. Monitor hemoglobin. Resume home medications as appropriate. Start gentle hydration. Monitor renal function. Hold Plavix and Xarelto for now. Replace electrolytes as per protocol. Monitor a.m. labs and imaging. Time spent for clinical assessment, reviewing labs/imaging, physical exam, decision making and documentation greater than 45 mins. Past Medical History Past Medical History: Anemia, Anxiety, Arthritis, Coronary Artery Disease, Depression, Diabetes, Dyslipidemia, Hypertension and Renal Disease Additional Medical History: BLEEDING AVMs Past Surgical History Surgical History: Angioplasty/Stents, CABG/Valve Surgery, Hysterectomy, Ortho Surgery and Other Family History Family Medical History: Cancer and Hypertension Social History Does patient currently use any type of tobacco product: No (Quit smoking Mar 2025) Type of Tobacco Use: Cigarettes Alcohol Use: None Drug Use: None Medications Home Medications: Home Medications Medication Instructions Recorded Confirmed Type carvedilol 25 mg tablet 25 mg PO BID 12/24/23 History estradiol 0.5 mg tablet 0.5 mg PO QDAY 12/24/2305/19 History fenofibrate 160 mg tablet 160 mg PO HS 12/24/23 History gabapentin 300 mg capsule 300 mg PO TID 12/24/2306/04 History hydralazine 100 mg tablet 100 mg PO TID 12/24/2306/04 History icosapent ethyl 1 gram capsule 1 g PO BID 12/24/23 History (Vascepa) levocetirizine 5 mg tablet 5 mg PO DAILY 12/24/2305/19 History lorazepam 1 mg tablet 1 mg PO BID 12/24/23 5 History nifedipine 90 mg tablet,extended 90 mg PO QDAY 4 06/04/25 History release 24 hr rivaroxaban 20 mg tablet (Xarelto) 20 mg PO QDAY 12/2304/04/25 History spironolactone 25 mg tablet 25 mg PO QDAY 12/24/23 History evolocumab 140 mg/mL subcutaneous 140 mg subcut Q2W 06/04/25 History pen injector (Reped SureClick) furosemide 20 mg tablet 20 mg PO 2XW PRN 04/04/25 History pantoprazole 40 mg tablet,delayed 40 mg PO BID 5 06/04/25 History release semaglutide 7 mg tablet (Rybelsus) 7 mg PO QDAY 04/04/25 History clopidogrel 75 mg tablet 75 mg PO QDAY 06/04/2506/04 History Allergies Allergies Allergy/AdvReac Type Severity Reaction Status Date / Time acetaminophen (From Percocet) Allergy Verified 06/04/25 15:48 oxycodone (From Percocet) Allergy Verified 06/04/25 15:48 Mjwfzzo-GNV-ZzC Reductase Allergy Verified 06/04/25 15:48 Inhibitor (Asnaxln-Lvk-Tqu Reductase Inhibitor) Labs 06/05/25 05:48 06/05/25 05:48 Labs: Laboratory WBC 5.1 X10^3/uL (3.6-10.0) 06/05/25 05:48 RBC 2.98 X10^6/uL (3.5-5.4) L 06/05/25 05:48 Hgb 7.4 g/dL (12.0-16.0) L 06/05/25 05:48 Hct 23.1 % (36.0-47.0) L 06/05/25 05:48 MCV 77.5 fL (80.0-100.0) L 06/05/25 05:48 MCH 24.7 pg (27.0-34.0) L 06/05/25 05:48 MCHC 31.8 g/dL (33.0-35.0) L 06/05/25 05:48 RDW 19.1 % (11.6-16.5) H 06/05/25 05:48 Plt Count 213 X10^3/uL (150.0-450.0) 06/05/25 05:48 Plt Count Comment Adequate (ADEQUATE) 06/04/25 13:10 MPV 8.0 fL (7.4-11.0) 06/05/25 05:48 Neut % (Auto) 58.3 % (42.0-75.0) 06/05/25 05:48 Lymph % (Auto) 28.1 % (21.0-51.0) 06/05/25 05:48 [place] % (Auto) 8.0 % (0.0-13.0) 06/05/25 05:48 Eos % (Auto) 4.4 % (0.9-2.9) H 06/05/25 05:48 Baso % (Auto) 1.2 % (0.2-1.0) H 06/05/25 05:48 Neut # (Auto) 3.0 x10^3/uL (2.2-4.8) 06/05/25 05:48 Lymph # (Auto) 1.4 X10^3/uL (1.3-2.9) 06/05/25 05:48 [place] # (Auto) 0.4 x10^3/uL (0.3-0.8) 06/05/25 05:48 Eos # (Auto) 0.2 x10^3/uL (0.0-0.2) 06/05/25 05:48 Baso # (Auto) 0.1 X10^3/uL (0.0-0.1) 06/05/25 05:48 Absolute Nucleated RBC 0.6 /100WBC 06/05/25 05:48 Plt Morphology Comment Normal (NORMAL) 06/04/25 13:10 RBC Morphology Abnormal (NORMAL) A 06/04/25 13:10 Hypochromasia 1+ A 06/04/25 13:10 Poikilocytosis Slight A 06/04/25 13:10 Anisocytosis 1+ A 06/04/25 13:10 Microcytosis Slight A 06/04/25 13:10 Target Cells Slight A 06/04/25 13:10 Sodium 142 mmol/L (136-145) 06/05/25 05:48 Corrected Sodium TNP 06/05/25 05:48 Potassium 4.5 mmol/L (3.5-5.1) 06/05/25 05:48 Chloride 108 mmol/L (98-107) H 06/05/25 05:48 Carbon Dioxide 26.4 mmol/L (21-32) 06/05/25 05:48 BUN 51 mg/dL (7-18) H 06/05/25 05:48 Creatinine 3.74 mg/dL (0.55-1.02) H 06/05/25 05:48 Est GFR (MDRD) Af Amer 15 (>60) L 06/05/25 05:48 Est GFR (MDRD) Non-Af 12 (>60) L 06/05/25 05:48 Glucose 97 mg/dL (65-99) 06/05/25 05:48 Calcium 8.0 mg/dL (8.5-10.1) L 06/05/25 05:48 Corrected Calcium 9.0 mg/dL (8.5-10.1) 06/05/25 05:48 Magnesium 2.2 mg/dL (2.0-2.9) 06/04/25 13:10 Iron 86 ug/dL (50-175) 06/05/25 05:48 TIBC 578 ug/dL (250-450) H 06/05/25 05:48 % Saturation 14.9 % (11.0-46.0) 06/05/25 05:48 Ferritin 13 ng/mL (8-252) 06/05/25 05:48 Total Bilirubin 1.20 mg/dL (0.2-1.0) H 06/05/25 05:48 AST 254 Units/L (15-37) H 06/05/25 05:48 ALT 232 Units/L (12-78) H 06/05/25 05:48 Alkaline Phosphatase 21 Units/L (46-116) L 06/05/25 05:48 Total Protein 5.7 g/dL (6.4-8.2) L 06/05/25 05:48 Albumin 2.7 g/dL (3.4-5.0) L 06/05/25 05:48 Globulin 3.0 g/dL (2.5-4.5) 06/05/25 05:48 Albumin/Globulin Ratio 0.9 Ratio (1.1-2.1) L 06/05/25 05:48 Folate 7.5 ng/mL (>8.6) L 06/05/25 05:48 Blood Type O POSITIVE 06/04/25 13:10 Antibody Screen Negative 06/04/25 13:10 Crossmatch See Detail 06/04/25 13:10 Review of Systems Constitutional: Weakness Eyes: No Symptoms Reported ENT: No Symptoms Reported Respiratory: No Symptoms Reported Cardiovascular: No Symptoms Reported Gastrointestinal: Melena Genitourinary: No Symptoms Reported Musculoskeletal: No Symptoms Reported Skin: No Symptoms Reported Neurological: No Symptoms Reported Physical Exam Vital Signs: Vital Signs Temperature 97.7 F Temperature 97.8 F Temperature 97.8 F Pulse Rate [Bilateral Radial] 61 Pulse Rate [Bilateral Radial] 68 Pulse Rate [Bilateral Radial] 68 Respiratory Rate 18 Respiratory Rate 24 Respiratory Rate 24 Blood Pressure [Left Arm] 106/51 Blood Pressure [Left Arm] 106/51 Blood Pressure [Right Arm] 120/70 Blood Pressure [Right Arm] 147/66 O2 Sat by Pulse Oximetry 95 O2 Sat by Pulse Oximetry 95 O2 Sat by Pulse Oximetry 95 Oriented: Normal Respiratory: Clear Throughout Cardiovascular: Normal Auscultation: Bowel Sounds: Normal Palpation: Normal Tenderness: Normal Skin: Normal Musculoskeletal: Normal Mood Description: Calm Affect: Normal Speech Pattern: Clear and Appropriate Assessment/Plan (1) Symptomatic anemia: Status: Acute (2) Generalized weakness: Status: Acute (3) Acute kidney injury superimposed on CKD: Status: Acute (4) AVM (arteriovenous malformation): Status: Chronic (5) CKD (chronic kidney disease): Status: Chronic Review H&P Reviewed: Yes Patient was examined?: Yes
[2025-06-05] MEDS: NS 1,000 ML IV 1,000 ML IV SCH (11:00)
[2025-06-05] MEDS: NEURONTIN CAP 300 MG PO SCH (14:21)
[2025-06-05] MEDS: FOLIC ACID TAB 1 MG PO SCH (14:25)
[2025-06-06 06:05] LABS: MEAN PLATELET VOLUME 8.0 fL (7.4-11.0); RED CELL DISTRIBUTION WIDTH 20.0 % (11.6-16.5)
[2025-06-06] MEDS ORDERED: NovoLIN R (or HumuLIN R) SUBCUT PRN (06:10)
[2025-06-06 06:21] LABS: COR CA(FOR HYPOALB) 9.1 mg/dL (8.5-10.1); CREATININE 3.15 mg/dL (0.55-1.02); eGFR NON BLACK RACES 15 (>60)
[2025-06-06 08:01] VITALS: BMI 30.6
[2025-06-06] MEDS: NS 1,000 ML IV 250 ML IV PRN (08:30)
[2025-06-06] MEDS: DIPRIVAN VIAL 20 ML ONE (08:33)
[2025-06-06] MEDS: XYLOCAINE 2 % (PLAIN) ONE (08:34)
[2025-06-06] MEDS: DIPRIVAN VIAL 0 ML IVP PRN (08:50)
--- NOTE | 2025-06-06 10:50 | PCM.PROG ---
Progress Note Progress Note for Day of Date of Exam: 06/06/25 Subjective Subjective: Patient seen at bedside, no acute events overnight. Dr. Vera was consulted for anemia and patient underwent EGD this morning. She reports feeling slightly better. She does report having some indigestion and bloating. Her hemoglobin is stable at 7.6. Her renal function is improving. Labs/imaging reviewed: - WBC 4.7 hemoglobin 7.6 platelet 229 potassium 4.3 BUN 39 creatinine 3.15 AST 159 ALT 210 Plan: Continue gentle hydration, monitor renal function. Follow surgery recommendations. Monitor hemoglobin. Transfuse 1 unit today. Continue Pepcid and Protonix. Add Carafate. Continue home medications. PT/OT as tolerated. Replace electrolytes as per protocol. Monitor a.m. labs and imaging. Time spent for clinical assessment, reviewing labs/imaging, physical exam, decision making and documentation greater than 45 mins. Past Medical Family Social History Allergies: Allergies acetaminophen (From Percocet) Allergy (Verified 06/04/25 15:48) oxycodone (From Percocet) Allergy (Verified 06/04/25 15:48) Jbyqilh-TCM-YeE Reductase Inhibitor (Jzuisyk-Qgb-Nvl Reductase Inhibitor) Allergy (Verified 06/04/25 15:48) Vital Signs and I&O's Vital Signs: Vital Signs Temperature 98.1 F Temperature 98.4 F Pulse Rate [Bilateral Radial] 61 Pulse Rate [Bilateral Radial] 61 Respiratory Rate 17 Respiratory Rate 19 Blood Pressure [Right Arm] 142/66 Blood Pressure [Right Arm] 172/75 O2 Sat by Pulse Oximetry 92 O2 Sat by Pulse Oximetry 93 Intake and Output: Intake & Output 06/03/25 06/04/25 06/05/25 06/06/25 23:59 23:59 23:59 23:59 Intake Total 275 / 275 1133 / 1133 760 / 760 Output Total 0 / 0 Balance 275 / 275 1133 / 1133 760 / 760 Physical Exam Oriented: Normal Throat: Normal Respiratory: Normal Cardiovascular: Normal Auscultation: Bowel Sounds: Normal Palpation: Normal Tenderness: Normal Skin: Normal Musculoskeletal: Normal Psychiatric: Normal Mood Description: Calm Affect: Normal Speech Pattern: Clear and Appropriate Laboratory and Diagnostics 06/06/25 05:50 06/06/25 05:50 Labs: Laboratory WBC 4.7 X10^3/uL (3.6-10.0) 06/06/25 05:50 RBC 3.11 X10^6/uL (3.5-5.4) L 06/06/25 05:50 Hgb 7.6 g/dL (12.0-16.0) L 06/06/25 05:50 Hct 24.3 % (36.0-47.0) L 06/06/25 05:50 MCV 78.1 fL (80.0-100.0) L 06/06/25 05:50 MCH 24.4 pg (27.0-34.0) L 06/06/25 05:50 MCHC 31.2 g/dL (33.0-35.0) L 06/06/25 05:50 RDW 20.0 % (11.6-16.5) H 06/06/25 05:50 Plt Count 229 X10^3/uL (150.0-450.0) 06/06/25 05:50 Plt Count Comment Adequate (ADEQUATE) 06/04/25 13:10 MPV 8.0 fL (7.4-11.0) 06/06/25 05:50 Neut % (Auto) 53.9 % (42.0-75.0) 06/06/25 05:50 Lymph % (Auto) 31.0 % (21.0-51.0) 06/06/25 05:50 [place] % (Auto) 6.8 % (0.0-13.0) 06/06/25 05:50 Eos % (Auto) 6.8 % (0.9-2.9) H 06/06/25 05:50 Baso % (Auto) 1.5 % (0.2-1.0) H 06/06/25 05:50 Neut # (Auto) 2.5 x10^3/uL (2.2-4.8) 06/06/25 05:50 Lymph # (Auto) 1.5 X10^3/uL (1.3-2.9) 06/06/25 05:50 [place] # (Auto) 0.3 x10^3/uL (0.3-0.8) 06/06/25 05:50 Eos # (Auto) 0.3 x10^3/uL (0.0-0.2) H 06/06/25 05:50 Baso # (Auto) 0.1 X10^3/uL (0.0-0.1) 06/06/25 05:50 Absolute Nucleated RBC 0.5 /100WBC 06/06/25 05:50 Plt Morphology Comment Normal (NORMAL) 06/04/25 13:10 RBC Morphology Abnormal (NORMAL) A 06/04/25 13:10 Hypochromasia 1+ A 06/04/25 13:10 Poikilocytosis Slight A 06/04/25 13:10 Anisocytosis 1+ A 06/04/25 13:10 Microcytosis Slight A 06/04/25 13:10 Target Cells Slight A 06/04/25 13:10 Sodium 143 mmol/L (136-145) 06/06/25 05:50 Corrected Sodium TNP 06/06/25 05:50 Potassium 4.3 mmol/L (3.5-5.1) 06/06/25 05:50 Chloride 109 mmol/L (98-107) H 06/06/25 05:50 Carbon Dioxide 24.5 mmol/L (21-32) 06/06/25 05:50 BUN 39 mg/dL (7-18) H 06/06/25 05:50 Creatinine 3.15 mg/dL (0.55-1.02) H 06/06/25 05:50 Est GFR (MDRD) Af Amer 18 (>60) L 06/06/25 05:50 Est GFR (MDRD) Non-Af 15 (>60) L 06/06/25 05:50 Glucose 102 mg/dL (65-99) H 06/06/25 05:50 POC Glucose (mg/dL) 107 mg/dL (65-99) H 06/06/25 05:53 Calcium 8.1 mg/dL (8.5-10.1) L 06/06/25 05:50 Corrected Calcium 9.1 mg/dL (8.5-10.1) 06/06/25 05:50 Magnesium 2.1 mg/dL (2.0-2.9) 06/06/25 05:50 Iron 86 ug/dL (50-175) 06/05/25 05:48 TIBC 578 ug/dL (250-450) H 06/05/25 05:48 % Saturation 14.9 % (11.0-46.0) 06/05/25 05:48 Ferritin 13 ng/mL (8-252) 06/05/25 05:48 Total Bilirubin 0.90 mg/dL (0.2-1.0) 06/06/25 05:50 AST 159 Units/L (15-37) H 06/06/25 05:50 ALT 210 Units/L (12-78) H 06/06/25 05:50 Alkaline Phosphatase 20 Units/L (46-116) L 06/06/25 05:50 Total Protein 6.0 g/dL (6.4-8.2) L 06/06/25 05:50 Albumin 2.8 g/dL (3.4-5.0) L 06/06/25 05:50 Globulin 3.2 g/dL (2.5-4.5) 06/06/25 05:50 Albumin/Globulin Ratio 0.9 Ratio (1.1-2.1) L 06/06/25 05:50 Folate 7.5 ng/mL (>8.6) L 06/05/25 05:48 Blood Type O POSITIVE 06/04/25 13:10 Antibody Screen Negative 06/04/25 13:10 Crossmatch See Detail 06/04/25 13:10 Plan (1) Symptomatic anemia: Status: Acute (2) Generalized weakness: Status: Acute (3) Acute kidney injury superimposed on CKD: Status: Acute (4) AVM (arteriovenous malformation): Status: Chronic (5) CKD (chronic kidney disease): Status: Chronic (6) Gastritis: Status: Acute
[2025-06-06] MEDS: PEPCID 20 MG VIAL 20 MG in NS 50 ML IV 50 ML IV SCH (11:06)
[2025-06-06] MEDS: CARAFATE PO SCH (11:06)
[2025-06-06] MEDS: ZOFRAN TAB 4 MG SL PRN (15:50)
[2025-06-06] MEDS: NS 250 ML IV 250 ML IV ONE (18:55)
[2025-06-06] MEDS: SNACK - Diabetic Appropriate PO SCH (21:51)
[2025-06-07 05:50] LABS: MEAN PLATELET VOLUME 7.8 fL (7.4-11.0); RED CELL DISTRIBUTION WIDTH 20.1 % (11.6-16.5)
[2025-06-07 05:59] LABS: PLATELET MORPHOLOGY COMMENT NORMAL (NORMAL)
[2025-06-07 06:07] LABS: COR CA(FOR HYPOALB) 8.8 mg/dL (8.5-10.1); CREATININE 2.55 mg/dL (0.55-1.02); eGFR NON BLACK RACES 19 (>60)
[2025-06-07] MEDS ORDERED: CONSULT PHARMACY - POTASSIUM & MAGNESIUM XX SCH (07:00)
[2025-06-07] MEDS: MAG-OX TAB PO SCH (08:20)
[2025-06-07 08:27] VITALS: BP 140/55; PULSE 63; RESP 17; TEMP 97.9; O2SAT 95
--- NOTE | 2025-06-13 16:45 | W.DIS.FURT ---
Summary of Discharge Discharge Summary of Date Date of Exam: 06/07/25 Admission Date Date of Admission: 06/04/25 Admission Diagnosis Patient Problems (Updated 06/06/25 @ 10:50 by Karolyn Collins MD) Generalized weakness (Acute) R53.1 Anemia (Acute) D64.9 Hospital Course: Patient is a 75-year-old female admitted for anemia. General surgery was consulted- Dr. Foster and patient underwent EGD that revealed no evidence of active bleeding in the stomach with clear bile. Only mild gastritis. No ulcers, neoplasm, varices, or erosion. Patient's hemoglobin stabilized after transfusion. Renal function improved significantly and continues to daily. Can be monitored at this time outpatient. Patient responded well to treatments and elected to have outpatient colonoscopy. Patient was stable for discharge. She was instructed to follow-up with PCP in general surgery in 1 week. Vital Signs: Vital Signs (72 hours) 06/04/25 12:28 06/04/25 16:00 06/04/25 16:05 Temperature 98.5 F 98.7 F Pulse Rate 62 Pulse Rate [Bilateral Radial] 65 Respiratory Rate 18 20 Blood Pressure 170/74 Blood Pressure [Left Arm] Blood Pressure [Right Arm] 143/62 O2 Sat by Pulse Oximetry 96 93 L Oxygen Delivery Method Room Air Nasal Cannula Room Air Oxygen Flow Rate FIO2% 06/04/25 16:50 06/04/25 19:00 06/04/25 20:00 Temperature 98.1 F Pulse Rate Pulse Rate [Bilateral Radial] 66 Respiratory Rate 20 Blood Pressure Blood Pressure [Left Arm] Blood Pressure [Right Arm] 148/67 O2 Sat by Pulse Oximetry 98 Oxygen Delivery Method Room Air Room Air Room Air Oxygen Flow Rate FIO2% 06/04/25 20:15 06/05/25 00:00 06/05/25 04:00 Temperature 98.2 F 97.8 F Pulse Rate Pulse Rate [Bilateral Radial] 65 68 Respiratory Rate 20 24 Blood Pressure Blood Pressure [Left Arm] 106/51 Blood Pressure [Right Arm] 165/73 O2 Sat by Pulse Oximetry 95 95 Oxygen Delivery Method Room Air Room Air Room Air Oxygen Flow Rate FIO2% 06/05/25 04:00 06/05/25 04:05 06/05/25 07:00 Temperature 97.8 F Pulse Rate Pulse Rate [Bilateral Radial] 68 Respiratory Rate 24 Blood Pressure Blood Pressure [Left Arm] 106/51 Blood Pressure [Right Arm] 147/66 O2 Sat by Pulse Oximetry 95 Oxygen Delivery Method Room Air Room Air Oxygen Flow Rate FIO2% 06/05/25 08:00 06/05/25 12:00 06/05/25 16:00 Temperature 97.7 F 97.7 F 98.1 F Pulse Rate Pulse Rate [Bilateral Radial] 61 61 65 Respiratory Rate 18 18 20 Blood Pressure Blood Pressure [Left Arm] Blood Pressure [Right Arm] 120/70 142/68 152/76 O2 Sat by Pulse Oximetry 95 97 98 Oxygen Delivery Method Room Air Room Air Room Air Oxygen Flow Rate FIO2% 06/05/25 19:00 06/05/25 20:00 06/05/25 20:44 Temperature 97.7 F Pulse Rate Pulse Rate [Bilateral Radial] 66 Respiratory Rate 20 Blood Pressure Blood Pressure [Left Arm] Blood Pressure [Right Arm] 143/58 O2 Sat by Pulse Oximetry 92 L Oxygen Delivery Method Room Air Room Air Room Air Oxygen Flow Rate FIO2% 06/06/25 00:00 06/06/25 04:00 06/06/25 07:00 Temperature 98.0 F 98.4 F Pulse Rate Pulse Rate [Bilateral Radial] 72 61 Respiratory Rate 20 19 Blood Pressure Blood Pressure [Left Arm] Blood Pressure [Right Arm] 128/59 172/75 O2 Sat by Pulse Oximetry 94 L 93 L Oxygen Delivery Method Room Air Room Air Room Air Oxygen Flow Rate FIO2% 06/06/25 07:42 06/06/25 08:20 06/06/25 09:00 Temperature 98.1 F 97.7 F Pulse Rate Pulse Rate [Bilateral Radial] 61 60 Respiratory Rate 17 16 Blood Pressure Blood Pressure [Left Arm] 137/63 Blood Pressure [Right Arm] 142/66 O2 Sat by Pulse Oximetry 92 L 98 Oxygen Delivery Method Room Air Room Air Oxygen Flow Rate FIO2% 06/06/25 09:00 06/06/25 09:15 06/06/25 09:30 Temperature 97.6 F 99 F Pulse Rate Pulse Rate [Bilateral Radial] 63 71 Respiratory Rate 16 16 Blood Pressure Blood Pressure [Left Arm] 146/79 157/72 Blood Pressure [Right Arm] O2 Sat by Pulse Oximetry 99 99 Oxygen Delivery Method Nasal Cannula Oxygen Flow Rate 2 FIO2% 28 06/06/25 09:45 06/06/25 10:00 06/06/25 11:00 Temperature 99 F 98.3 F 98.4 F Pulse Rate Pulse Rate [Bilateral Radial] 62 63 57 L Respiratory Rate 17 17 16 Blood Pressure Blood Pressure [Left Arm] 153/70 154/68 145/65 Blood Pressure [Right Arm] O2 Sat by Pulse Oximetry 100 94 L 92 L Oxygen Delivery Method Oxygen Flow Rate FIO2% 06/06/25 12:00 06/06/25 12:00 06/06/25 13:00 Temperature 98.4 F 98.3 F 97.4 F L Pulse Rate Pulse Rate [Bilateral Radial] 64 62 63 Respiratory Rate 17 16 17 Blood Pressure Blood Pressure [Left Arm] 138/65 146/63 Blood Pressure [Right Arm] 146/63 O2 Sat by Pulse Oximetry 93 L 90 L 93 L Oxygen Delivery Method Room Air Oxygen Flow Rate FIO2% 06/06/25 14:00 06/06/25 15:34 06/06/25 18:40 Temperature 97.7 F 97.4 F L Pulse Rate Pulse Rate [Bilateral Radial] 67 60 Respiratory Rate 16 18 Blood Pressure Blood Pressure [Left Arm] 151/71 Blood Pressure [Right Arm] 148/69 O2 Sat by Pulse Oximetry 97 96 Oxygen Delivery Method Room Air Room Air Oxygen Flow Rate 2 FIO2% 28 06/06/25 19:00 06/06/25 20:00 06/06/25 21:30 Temperature 97.4 F L Pulse Rate Pulse Rate [Bilateral Radial] 74 Respiratory Rate 18 Blood Pressure Blood Pressure [Left Arm] Blood Pressure [Right Arm] 165/71 138/78 O2 Sat by Pulse Oximetry 98 Oxygen Delivery Method Room Air Room Air Oxygen Flow Rate FIO2% 06/06/25 23:45 06/07/25 03:54 06/07/25 07:00 Temperature 98.0 F 97.6 F Pulse Rate Pulse Rate [Bilateral Radial] 62 68 Respiratory Rate 20 18 Blood Pressure Blood Pressure [Left Arm] Blood Pressure [Right Arm] 125/59 115/60 O2 Sat by Pulse Oximetry 93 L 92 L Oxygen Delivery Method Room Air Room Air Room Air Oxygen Flow Rate FIO2% 06/07/25 08:00 Temperature 97.9 F Pulse Rate Pulse Rate [Bilateral Radial] 63 Respiratory Rate 17 Blood Pressure Blood Pressure [Left Arm] Blood Pressure [Right Arm] 140/55 O2 Sat by Pulse Oximetry 95 Oxygen Delivery Method Room Air Oxygen Flow Rate FIO2% Labs: Laboratory Last Values WBC 5.9 X10^3/uL (3.6-10.0) 06/07/25 05:34 RBC 3.56 X10^6/uL (3.5-5.4) 06/07/25 05:34 Hgb 9.0 g/dL (12.0-16.0) L 06/07/25 05:34 Hct 28.2 % (36.0-47.0) L 06/07/25 05:34 MCV 79.3 fL (80.0-100.0) L 06/07/25 05:34 MCH 25.3 pg (27.0-34.0) L 06/07/25 05:34 MCHC 32.0 g/dL (33.0-35.0) L 06/07/25 05:34 RDW 20.1 % (11.6-16.5) H 06/07/25 05:34 Plt Count 234 X10^3/uL (150.0-450.0) 06/07/25 05:34 Plt Count Comment Adequate (ADEQUATE) 06/07/25 05:34 MPV 7.8 fL (7.4-11.0) 06/07/25 05:34 Neut % (Auto) 58.0 % (42.0-75.0) 06/07/25 05:34 Lymph % (Auto) 26.2 % (21.0-51.0) 06/07/25 05:34 [place] % (Auto) 7.5 % (0.0-13.0) 06/07/25 05:34 Eos % (Auto) 7.0 % (0.9-2.9) H 06/07/25 05:34 Baso % (Auto) 1.3 % (0.2-1.0) H 06/07/25 05:34 Neut # (Auto) 3.4 x10^3/uL (2.2-4.8) 06/07/25 05:34 Lymph # (Auto) 1.5 X10^3/uL (1.3-2.9) 06/07/25 05:34 [place] # (Auto) 0.4 x10^3/uL (0.3-0.8) 06/07/25 05:34 Eos # (Auto) 0.4 x10^3/uL (0.0-0.2) H 06/07/25 05:34 Baso # (Auto) 0.1 X10^3/uL (0.0-0.1) 06/07/25 05:34 Absolute Nucleated RBC 0.3 /100WBC 06/07/25 05:34 Plt Morphology Comment Normal (NORMAL) 06/07/25 05:34 RBC Morphology Abnormal (NORMAL) A 06/07/25 05:34 Hypochromasia Slight A 06/07/25 05:34 Poikilocytosis Slight A 06/04/25 13:10 Anisocytosis 1+ A 06/07/25 05:34 Microcytosis Slight A 06/07/25 05:34 Target Cells Slight A 06/04/25 13:10 Sodium 141 mmol/L (136-145) 06/07/25 05:34 Corrected Sodium TNP 06/07/25 05:34 Potassium 4.2 mmol/L (3.5-5.1) 06/07/25 05:34 Chloride 107 mmol/L (98-107) 06/07/25 05:34 Carbon Dioxide 26.0 mmol/L (21-32) 06/07/25 05:34 BUN 32 mg/dL (7-18) H 06/07/25 05:34 Creatinine 2.55 mg/dL (0.55-1.02) H 06/07/25 05:34 Est GFR (MDRD) Af Amer 23 (>60) L 06/07/25 05:34 Est GFR (MDRD) Non-Af 19 (>60) L 06/07/25 05:34 Glucose 105 mg/dL (65-99) H 06/07/25 05:34 POC Glucose (mg/dL) 105 mg/dL (65-99) H 06/07/25 05:26 Calcium 7.9 mg/dL (8.5-10.1) L 06/07/25 05:34 Corrected Calcium 8.8 mg/dL (8.5-10.1) 06/07/25 05:34 Magnesium 1.9 mg/dL (2.0-2.9) L 06/07/25 05:34 Iron 86 ug/dL (50-175) 06/05/25 05:48 TIBC 578 ug/dL (250-450) H 06/05/25 05:48 % Saturation 14.9 % (11.0-46.0) 06/05/25 05:48 Ferritin 13 ng/mL (8-252) 06/05/25 05:48 Total Bilirubin 1.00 mg/dL (0.2-1.0) 06/07/25 05:34 AST 89 Units/L (15-37) H 06/07/25 05:34 ALT 159 Units/L (12-78) H 06/07/25 05:34 Alkaline Phosphatase 25 Units/L (46-116) L 06/07/25 05:34 Total Protein 6.2 g/dL (6.4-8.2) L 06/07/25 05:34 Albumin 2.9 g/dL (3.4-5.0) L 06/07/25 05:34 Globulin 3.3 g/dL (2.5-4.5) 06/07/25 05:34 Albumin/Globulin Ratio 0.9 Ratio (1.1-2.1) L 06/07/25 05:34 Folate 7.5 ng/mL (>8.6) L 06/05/25 05:48 Blood Type O POSITIVE 06/04/25 13:10 Antibody Screen Negative 06/04/25 13:10 Crossmatch See Detail 06/04/25 13:10 Reason For Visit: ANEMIA Discharge Date Discharge Date: 06/07/25 Discharge Diagnosis All Active Problems (Updated 06/06/25 @ 10:50 by Karolyn Collins MD) Gastritis (Acute) Acute kidney injury superimposed on CKD (Acute) AVM (arteriovenous malformation) (Chronic) CKD (chronic kidney disease) (Chronic) Symptomatic anemia (Acute) CHF exacerbation (Acute) Hypertensive emergency without congestive heart failure (Acute) Acute renal failure superimposed on stage 3 chronic kidney disease (Acute) Acute GI bleeding (Acute) Generalized weakness (Acute) Anemia (Acute) Anemia (Acute) Plan of Treatment: Continue with present treatment and follow up plan. Pt is to keep follow up appointment as instructed and take medications as ordered. Discharge Medications Discharge Medications: acetaminophen (From Percocet) Allergy (Verified 06/04/25 15:48) oxycodone (From Percocet) Allergy (Verified 06/04/25 15:48) [id number] Reductase Inhibitor ([id number] Reductase Inhibitor) Allergy (Verified 06/04/25 15:48) CONTINUE taking the following medications clopidogrel 75 mg tablet 75 mg PO QDAY 06/05/25 [History] dapagliflozin propanediol 10 mg tablet (Farxiga) 10 mg PO QDAY 06/05/25 [History] lorazepam 1 mg tablet 1 mg PO BID PRN 06/05/25 [History] ondansetron HCl 4 mg tablet 4 mg PO Q8H PRN 06/05/25 [History] Discharge Plan Discharge Plan Hospital Course: Patient is a 75-year-old female admitted for anemia. General surgery was consulted- Dr. Foster and patient underwent EGD that revealed no evidence of active bleeding in the stomach with clear bile. Only mild gastritis. No ulcers, neoplasm, varices, or erosion. Patient's hemoglobin stabilized after transfusion. Renal function improved significantly and continues to daily. Can be monitored at this time outpatient. Patient responded well to treatments and elected to have outpatient colonoscopy. Patient was stable for discharge. She was instructed to follow-up with PCP in general surgery in 1 week. Patient Disposition: 01 HOME, SELF-CARE Condition: Stable Health Concerns: Post Hospitalization: new medications and changes needed to prevent readmission or further decline. Pt educated and given instructions on all concerns. Care Plan Goals: Problem: Fluid Volume Deficit Goal: Maintain/Improved Adequate hydration. Instructions: Follow provided instructions. Follow up with primary physician as directed. Contact primary care physician or report to the closest Emergency Room if condition worsens. Plan of Treatment: Continue with present treatment and follow up plan. Pt is to keep follow up appointment as instructed and take medications as ordered. Prescriptions: Continued carvedilol 25 mg tablet 25 mg PO BID spironolactone 25 mg tablet 25 mg PO QDAY nifedipine 90 mg tablet extended release 24hr 90 mg PO QDAY estradiol 0.5 mg tablet 0.5 mg PO QDAY lorazepam 1 mg tablet 1 mg PO BID Xarelto 20 mg tablet 20 mg PO QDAY hydralazine 100 mg Tablet 100 mg PO TID gabapentin 300 mg Capsule 300 mg PO TID fenofibrate 160 mg Tablet 160 mg PO HS levocetirizine 5 mg Tablet 5 mg PO DAILY icosapent ethyl [Vascepa] 1 gram Capsule 1 g PO BID pantoprazole 40 mg tablet,delayed release (DR/EC) 40 mg PO BID furosemide 20 mg tablet 20 mg PO 2XW PRN Repatha SureClick 140 mg/mL pen injector 140 mg SUBCUT Q2W Patient Comments: [NO ORIGINAL SIG] Rybelsus 7 mg tablet 7 mg PO QDAY lorazepam 1 mg Tablet 1 mg PO BID PRN clopidogrel 75 mg tablet 75 mg PO QDAY dapagliflozin propanediol [Farxiga] 10 mg tablet 10 mg PO QDAY ondansetron HCl 4 mg tablet 4 mg PO Q8H PRN Orders to Discharge Patient Discharge Orders: Discharge (Routine); Ordered 06/07/25 Ordered By: DIANA MOCTEZUMA Follow ups/Referrals Follow ups/Referrals: Roddy Jasmine [Primary Care Provider, MEDICAL] - 06/18/25 9:10 am DIANA MOCTEZUMA [STAFF PHYSICIAN, MEDICAL] - 06/21/25 9:00 am Instructions Instructions: Gastritis, Adult, [id number], Anemia, Gastrointestinal Arteriovenous Malformations, Upper Endoscopy, Care After Stand Alone Forms: Find Help Web Site, Post Hospital Follow Up Care Print Language: CITIZ[place] OF [place]
== END 2025-06-07 11:40 | disposition home or self-care (01) ==
LOC: ER 11:55 → MED/SURG 11:55
PROVIDERS: ADMIT Internal Medicine; ATTEND Internal Medicine
DX: R74.01 Elevation of levels of liver transaminase levels; F32.89 Other specified depressive episodes; R11.2 Nausea with vomiting, unspecified; M19.90 Unspecified osteoarthritis, unspecified site; K29.60 Other gastritis without bleeding; R53.1 Weakness; N17.8 Other acute kidney failure; R79.89 Other specified abnormal findings of blood chemistry; Z95.2 Presence of prosthetic heart valve; R26.89 Other abnormalities of gait and mobility; Z86.73 Personal history of transient ischemic attack (TIA), and cerebral infarction without residual deficits; Z91.81 History of falling; E83.51 Hypocalcemia; E78.5 Hyperlipidemia, unspecified; I12.9 Hypertensive chronic kidney disease with stage 1 through stage 4 chronic kidney disease, or unspecified chronic kidney disease; E11.65 Type 2 diabetes mellitus with hyperglycemia; R94.4 Abnormal results of kidney function studies; N18.9 Chronic kidney disease, unspecified; D64.89 Other specified anemias; I25.810 Atherosclerosis of coronary artery bypass graft(s) without angina pectoris; K92.1 Melena; F41.8 Other specified anxiety disorders

== ENCOUNTER 2025-06-16 11:59 | Observation (INO) ==
[2025-06-16 12:20] VITALS: BMI 29.5
--- NOTE | 2025-06-16 12:20 | ED.ABDFE ---
HPI Time Seen Time Seen by Provider: 06/16/25 12:10 HPI Comment HPI Comment: Patient is a 75y/o female with history of of CAD, PVD, CVA, Anemia, HTN, HLD, DM2, CKD, and recurrent GI bleeds 2/2 AVMs who presents to ED with c/o dark tarry looking stools. Patient was recently discharged from a hospital on 06/07 for similar complaint and received about 3 units of packed red blood cells. She had a EGD performed which did not reveal any abnormalities. She was discharged home. She is taking Xarelto and Plavix. She noticed the black tarry a few days ago. She admits that she feels weak and tired. She does mid to intermittent abdominal pain that she rates as a 6/10. Pain is nonradiating. She is not taking any medications for her pain. She also feels nauseous but denies any vomiting or diarrhea. Denies fever, chills, chest pain, shortness of breath. COVID-19 Coronavirus risk:travel/contact w/high risk person: No Has patient experienced Coronavirus symptoms: No PMH PMH Past Medical History: Anemia, Anxiety, Arthritis, Coronary Artery Disease, Depression, Diabetes, Dyslipidemia, Hypertension and Renal Disease Past Surgical History: Yes Surgical History: Angioplasty/Stents, CABG/Valve Surgery, Hysterectomy, Ortho Surgery and Other Family History Family Medical History: Cancer and Hypertension Social History Do you use any recreational Drugs:: No Travel Risk Coronavirus risk:travel/contact w/high risk person: No Has patient experienced Coronavirus symptoms: No ROS Review of Systems All Other Systems: Reviewed and Negative PE Vital Signs Vitals: Vital Signs Temperature 98.1 F Pulse Rate 83 Pulse Rate 83 Pulse Rate 86 Respiratory Rate 16 Blood Pressure 111/55 Blood Pressure 111/55 O2 Sat by Pulse Oximetry 98 O2 Sat by Pulse Oximetry 97 O2 Sat by Pulse Oximetry 98 Other Exam Other Exam: GEN: Lying comfortably on exam bed in NAD EYES: Conjunctival pallor appreciated HEART: RRR LUNGS: CTABL ABD: Soft, tender to palpation in the epigastric region, non distended, BS normal SKIN: Cold and dry. Patient appears pale ROR Labs Reviewed 06/16/25 12:15 06/16/25 12:15 Laboratory: WBC 8.3 X10^3/uL (3.6-10.0) 06/16/25 12:15 RBC 2.20 X10^6/uL (3.5-5.4) L 06/16/25 12:15 Hgb 5.7 g/dL (12.0-16.0) L* 06/16/25 12:15 Hct 17.7 % (36.0-47.0) L* 06/16/25 12:15 MCV 80.5 fL (80.0-100.0) 06/16/25 12:15 MCH 25.9 pg (27.0-34.0) L 06/16/25 12:15 MCHC 32.2 g/dL (33.0-35.0) L 06/16/25 12:15 RDW 21.2 % (11.6-16.5) H 06/16/25 12:15 Plt Count 279 X10^3/uL (150.0-450.0) 06/16/25 12:15 Plt Count Comment Adequate (ADEQUATE) 06/16/25 12:15 MPV 7.5 fL (7.4-11.0) 06/16/25 12:15 Neut % (Auto) 60.5 % (42.0-75.0) 06/16/25 12:15 Lymph % (Auto) 28.3 % (21.0-51.0) 06/16/25 12:15 [place] % (Auto) 7.9 % (0.0-13.0) 06/16/25 12:15 Eos % (Auto) 1.8 % (0.9-2.9) 06/16/25 12:15 Baso % (Auto) 1.5 % (0.2-1.0) H 06/16/25 12:15 Neut # (Auto) 5.0 x10^3/uL (2.2-4.8) H 06/16/25 12:15 Lymph # (Auto) 2.3 X10^3/uL (1.3-2.9) 06/16/25 12:15 [place] # (Auto) 0.7 x10^3/uL (0.3-0.8) 06/16/25 12:15 Eos # (Auto) 0.2 x10^3/uL (0.0-0.2) 06/16/25 12:15 Baso # (Auto) 0.1 X10^3/uL (0.0-0.1) 06/16/25 12:15 Absolute Nucleated RBC 0.1 /100WBC 06/16/25 12:15 Total Counted 100 06/16/25 12:15 Neutrophils % (Manual) 69 % (39-76) 06/16/25 12:15 Lymphocytes % (Manual) 25 % (13-43) 06/16/25 12:15 Monocytes % (Manual) 4 % (4-9) 06/16/25 12:15 Eosinophils % (Manual) 1 % (0-6) 06/16/25 12:15 Plt Morphology Comment Normal (NORMAL) 06/16/25 12:15 RBC Morphology Abnormal (NORMAL) A 06/16/25 12:15 Hypochromasia Slight A 06/16/25 12:15 Anisocytosis 1+ A 06/16/25 12:15 PT 15.4 SECONDS (11.8-14.3) 06/16/25 12:15 INR Target Range - 06/16/25 12:15 INR 1.20 (0.8-1.3) 06/16/25 12:15 Sodium 135 mmol/L (136-145) L 06/16/25 12:15 Corrected Sodium 136 mmol/L (136-145) 06/16/25 12:15 Potassium 3.8 mmol/L (3.5-5.1) 06/16/25 12:15 Chloride 99 mmol/L (98-107) 06/16/25 12:15 Carbon Dioxide 26.2 mmol/L (21-32) 06/16/25 12:15 BUN 58 mg/dL (7-18) H 06/16/25 12:15 Creatinine 2.69 mg/dL (0.55-1.02) H 06/16/25 12:15 Est GFR (MDRD) Af Amer 22 (>60) L 06/16/25 12:15 Est GFR (MDRD) Non-Af 18 (>60) L 06/16/25 12:15 Glucose 160 mg/dL (65-99) H 06/16/25 12:15 Calcium 8.7 mg/dL (8.5-10.1) 06/16/25 12:15 Corrected Calcium 9.4 mg/dL (8.5-10.1) 06/16/25 12:15 Total Bilirubin 0.50 mg/dL (0.2-1.0) 06/16/25 12:15 AST 28 Units/L (15-37) 06/16/25 12:15 ALT 29 Units/L (12-78) 06/16/25 12:15 Alkaline Phosphatase 43 Units/L (46-116) L 06/16/25 12:15 Total Protein 6.5 g/dL (6.4-8.2) 06/16/25 12:15 Albumin 3.1 g/dL (3.4-5.0) L 06/16/25 12:15 Globulin 3.4 g/dL (2.5-4.5) 06/16/25 12:15 Albumin/Globulin Ratio 0.9 Ratio (1.1-2.1) L 06/16/25 12:15 Amylase 52 Units/L (25-115) 06/16/25 12:15 Lipase 94 Units/L (16-77) H 06/16/25 12:15 Opioid Opioid Risk Tool Age (Chong box if 16-45): No History of Preadolescent Sexual Abuse: No Total: 0 Total Score Risk Category: Low Risk Copyright: [employer] predicting aberrant behaviors Discharge Plan Diagnosis Discharge Problem: GI (gastrointestinal bleed), AVM (arteriovenous malformation) Discharge Plan Patient Disposition: 09 ADMITTED INPATIENT Condition: Stable Prescriptions: No Action carvedilol 25 mg tablet 25 mg PO BID spironolactone 25 mg tablet 25 mg PO QDAY nifedipine 90 mg tablet extended release 24hr 90 mg PO QDAY estradiol 0.5 mg tablet 0.5 mg PO QDAY Xarelto 20 mg tablet 20 mg PO QDAY hydralazine 100 mg Tablet 100 mg PO TID gabapentin 300 mg Capsule 300 mg PO TID fenofibrate 160 mg Tablet 160 mg PO HS levocetirizine 5 mg Tablet 5 mg PO DAILY icosapent ethyl [Vascepa] 1 gram Capsule 1 g PO BID pantoprazole 40 mg tablet,delayed release (DR/EC) 40 mg PO BID furosemide 20 mg tablet 20 mg PO 2XW PRN Repatha SureClick 140 mg/mL pen injector 140 mg SUBCUT Q2W Patient Comments: [NO ORIGINAL SIG] Rybelsus 7 mg tablet 7 mg PO QDAY lorazepam 1 mg Tablet 1 mg PO BID PRN clopidogrel 75 mg tablet 75 mg PO QDAY dapagliflozin propanediol [Farxiga] 10 mg tablet 10 mg PO QDAY ondansetron HCl 4 mg tablet 4 mg PO Q8H PRN icosapent ethyl [Vascepa] 1 gram capsule 1 g PO BID Health Concerns: Post Hospitalization: new medications and changes needed to prevent readmission or further decline. Pt educated and given instructions on all concerns. Plan of Treatment: Continue with present treatment and follow up plan. Pt is to keep follow up appointment as instructed and take medications as ordered. Follow ups/Referrals Follow ups/Referrals: Roddy Jasmine [Primary Care Provider, MEDICAL] - 3 days Instructions Stand Alone Forms: Find Help Web Site, Post Hospital Follow Up Care Print Language: [place] Provider Note Additional Notes Patient is a 75-year-old female with history of AVM and recurrent GI bleed who presents to the ED with complaint of melanotic stools. She was recently discharged 9 days ago from the hospital for similar complaint. In ED she was afebrile and hemodynamically stable. CBC revealed a hemoglobin of 5.9. 2 large-bore IVs were placed. She was given 1 L of normal saline via 125 cc/h. Obtained a crossmatch. Will initiate 1 unit of packed red blood cells. Hospitalist, Dr. Lyons was consulted for admission. She agreed to accept the patient for anemia secondary to GI bleed.
[2025-06-16] MEDS: NS 1,000 ML IV 1,000 ML IV SCH ×2 (12:34→18:15)
[2025-06-16 12:45] LABS: MEAN PLATELET VOLUME 7.5 fL (7.4-11.0); RED CELL DISTRIBUTION WIDTH 21.2 % (11.6-16.5)
[2025-06-16 12:52] LABS: COR CA(FOR HYPOALB) 9.4 mg/dL (8.5-10.1); COR NA(FOR HYPERGLY) 136.0 mmol/L (136-145); CREATININE 2.69 mg/dL (0.55-1.02); eGFR NON BLACK RACES 18.0 (>60)
[2025-06-16] MEDS: ZOFRAN INJ 4 MG VIAL IVP ONE (12:52)
[2025-06-16 13:07] LABS: PLATELET MORPHOLOGY COMMENT NORMAL (NORMAL)
[2025-06-16 13:11] LABS: INR 1.20 (0.8-1.3)
--- NOTE | 2025-06-16 14:30 | CT ---
EXAM: ABDOMEN/PELVIS W/O CON HISTORY: umbilical area pain; abdominal pain COMPARISON: CT abdomen and pelvis 04/04/2025 TECHNIQUE: Multiple CT axial images of the abdomen and pelvis were obtained without IV contrast. Coronal and sagittal images were reconstructed. Dose reduction techniques included Automated Exposure Control (AEC) and adjustment of mA and kV. FINDINGS: Very tiny umbilical hernia contains fat, not changed from March 2025. No significant fluid or edema at the site. There is also a midline infraumbilical abdominal wall surgical scar. This is unchanged. But there is skin thickening and subcutaneous edema in the subcutaneous tissue of the lower abdominal wall which may indicate inflammation or superficial cellulitis. No emphysema or fluid collection. The lung bases are clear. Heart size is normal. Atherosclerotic calcification is present in the coronary arteries. Low-density of the blood pool suggests anemia. The liver is normal in size and configuration. The gallbladder has no edema around it. No calcified gallstones. The spleen is normal in size and shape. The adrenal glands are normal. The pancreas is normal. No abnormal calcifications are present in the kidneys, ureters, or urinary bladder. The kidneys have normal size and shape. There is no hydronephrosis or significant perirenal edema. The bladder has normal distention. It has no wall thickening or perivesical edema. The bowel is not dilated. There is no wall thickening in the bowel or edema around the bowel. The appendix is normal in size with no inflammation around it. No evidence of appendicitis. There are a few diverticula in the colon. But there is no wall thickening or pericolonic edema to suggest acute diverticulitis. Fixation hardware is present at L4-5. The bones are demineralized. Degenerative spondylitic changes are present in the spine. Median sternotomy fixation hardware is present. IMPRESSION: 1. Possible abdominal wall edema suggesting superficial cellulitis without abscess 2. Uncomplicated tiny umbilical hernia containing fat 3. Few colonic diverticula 4. Findings suggesting anemia THIS IS AN ELECTRONICALLY VERIFIED FINAL REPORT 06/16/2025 2:26 PM - Electronically signed by Magdy Wolff MD
[2025-06-16] MEDS ORDERED: MORPHINE SULFATE INJ 2 MG INJ IVP PRN (15:47)
[2025-06-16] MEDS ORDERED: TYLENOL 325 MG TAB PO PRN (15:47)
[2025-06-16] MEDS ORDERED: NORCO 5/325 MG TAB PO PRN (15:47)
[2025-06-16] MEDS ORDERED: CONSULT PHARMACY - POTASSIUM & MAGNESIUM XX SCH (15:47)
[2025-06-16] MEDS ORDERED: ULTRAM PO PRN (15:47)
[2025-06-16] MEDS: NS 250 ML IV 250 ML IV ONE (18:15)
[2025-06-16] MEDS ORDERED: NovoLIN R (or HumuLIN R) SUBCUT PRN (19:01)
[2025-06-16] MEDS: MAG-OX TAB PO SCH (21:27)
[2025-06-16] MEDS: KLOR-CON PO SCH (21:27)
[2025-06-16] MEDS: PROTONIX TAB 40 MG PO SCH (21:27)
[2025-06-16] MEDS: PATIENT'S HOME MEDICATION (Icosapent Ethyl [Vascepa] 1 gram Capsule) PO SCH (21:30)
[2025-06-16] MEDS: SNACK - Diabetic Appropriate PO SCH (21:30)
[2025-06-17] MEDS: NS 1,000 ML IV 1,000 ML ONE (01:45)
--- NOTE | 2025-06-17 03:29 | EKG ---
Test Reason : Hypertension Blood Pressure : */* mmHG Vent. Rate : 70 BPM Atrial Rate : 70 BPM P-R Int : 196 ms QRS Dur : 68 ms QT Int : 396 ms P-R-T Axes : 36 38 206 degrees QTc Int : 427 ms Normal sinus rhythm Septal infarct (cited on or before 04-APR-2025) Abnormal ECG When compared with ECG of 04-APR-2025 09:08, Nonspecific T wave abnormality, worse in Anterior leads Confirmed by Octaviano Davies MD ([id number]) on 06/17/2025 8:01:38 AM Referred By: Confirmed By: Octaviano Davies MD
[2025-06-17 03:41] LABS: MEAN PLATELET VOLUME 7.5 fL (7.4-11.0); RED CELL DISTRIBUTION WIDTH 19.1 % (11.6-16.5)
[2025-06-17 03:53] LABS: COR CA(FOR HYPOALB) 9.1 mg/dL (8.5-10.1); CREATININE 2.29 mg/dL (0.55-1.02); eGFR NON BLACK RACES 22 (>60)
[2025-06-17] MEDS: CATAPRES TAB 0.1 MG PO ONE (04:01)
[2025-06-17] MEDS ORDERED: PATIENT'S HOME MEDICATION (Levocetirizine 5 mg Tablet) PO SCH (09:00)
[2025-06-17] MEDS: ALDACTONE TAB 25 MG PO SCH (09:39)
[2025-06-17] MEDS ORDERED: ATIVAN TAB 1 MG PO PRN (11:20)
--- NOTE | 2025-06-17 11:25 | DR.H&P ---
H&P History & Physical for Day of: H&P Date: 06/17/25 Chief Complaint Chief Complaint: weakness, melena History of Present Illness History of Present Illness: Patient is a 75-year-old female with a past medical history of anemia, GI bleed due to AVMs, CVA, atrial fibrillation, CAD, type 2 diabetes, hyperlipidemia, CKD and hypertension presented with generalized weakness and melena. Patient was admitted recently for similar symptoms and underwent EGD. She states she was feeling better for a few days and then started feeling weak again and noticed a lot of blood in her stool. ER workup included labs which showed hemoglobin 5.7, creatinine 2.69. She was transfused 2 units of blood, hemoglobin this morning 7.7. Patient reports taking plavix but is not sure if she was told to stop Xarelto due to her renal function. She was supposed to follow-up with GI outpatient for colonoscopy. Labs/imaging reviewed: - WBC 6 hemoglobin 7.7 potassium 4.0 creatinine 2.29 - FOBT negative Plan: Transfuse 1 more unit of PRBCs. Keep Hgb > 8. Monitor hemoglobin. Continue gentle hydration. Resume home medications as appropriate. Hold Xarelto and Plavix. Continue Protonix and Pepcid. Replace electrolytes as per protocol. Add SCDs. Monitor a.m. labs and imaging. Time spent for clinical assessment, reviewing labs/imaging, physical exam, decision making and documentation greater than 45 mins. Past Medical History Past Medical History: Anemia, Anxiety, Arthritis, Coronary Artery Disease, Depression, Diabetes, Dyslipidemia, Hypertension and Renal Disease Additional Medical History: BLEEDING AVMs Past Surgical History Surgical History: Angioplasty/Stents, CABG/Valve Surgery, Hysterectomy and Ortho Surgery Family History Family Medical History: Cancer and Hypertension Social History Does patient currently use any type of tobacco product: No Have you used tobacco products in the last 12 months: No Type of Tobacco Use: Cigarettes How many years tobacco product used: 59 Does any household member use tobacco: No Alcohol Use: None Drug Use: None Medications Home Medications: Home Medications Medication Instructions Recorded Confirmed Type carvedilol 25 mg tablet 25 mg PO BID 12/24/23 History estradiol 0.5 mg tablet 0.5 mg PO QDAY 12/24/2305/20 History fenofibrate 160 mg tablet 160 mg PO HS 12/24/23 History gabapentin 300 mg capsule 300 mg PO TID 12/24/2306/16 History hydralazine 100 mg tablet 100 mg PO TID 12/24/2306/16 History icosapent ethyl 1 gram capsule 1 g PO BID 12/24/23 History (Vascepa) levocetirizine 5 mg tablet 5 mg PO DAILY 12/24/2305/20 History nifedipine 90 mg tablet,extended 90 mg PO QDAY 4 06/16/25 History release 24 hr rivaroxaban 20 mg tablet (Xarelto) 20 mg PO QDAY 12/2306/16/25 History spironolactone 25 mg tablet 25 mg PO QDAY 12/24/23 History furosemide 20 mg tablet 20 mg PO 2XW PRN 04/04/25 History pantoprazole 40 mg tablet,delayed 40 mg PO BID 5 06/16/25 History release clopidogrel 75 mg tablet 75 mg PO QDAY 06/05/2506/16 History dapagliflozin propanediol 10 mg 10 mg PO QDAY 06/05/25 06/17/25 History tablet (Farxiga) lorazepam 1 mg tablet 1 mg PO BID PRN 06/05/25 History ondansetron HCl 4 mg tablet 4 mg PO Q8H PRN 06/05/25 1 08/17/24 History icosapent ethyl 1 gram capsule 1 g PO BID 06/16/25 History (Vascepa) Allergies Allergies Allergy/AdvReac Type Severity Reaction Status Date / Time acetaminophen (From Percocet) Allergy Verified 06/04/25 15:48 oxycodone (From Percocet) Allergy Verified 06/04/25 15:48 Xauhscs-NLV-GsT Reductase Allergy Verified 06/04/25 15:48 Inhibitor (Iibikgl-Utw-Rmd Reductase Inhibitor) Labs 06/17/25 03:25 06/17/25 03:25 Labs: Laboratory WBC 6.0 X10^3/uL (3.6-10.0) 06/17/25 03:25 RBC 2.95 X10^6/uL (3.5-5.4) L 06/17/25 03:25 Hgb 7.7 g/dL (12.0-16.0) L D 06/17/25 03:25 Hct 23.9 % (36.0-47.0) L 06/17/25 03:25 MCV 80.9 fL (80.0-100.0) 06/17/25 03:25 MCH 26.3 pg (27.0-34.0) L 06/17/25 03:25 MCHC 32.4 g/dL (33.0-35.0) L 06/17/25 03:25 RDW 19.1 % (11.6-16.5) H 06/17/25 03:25 Plt Count 244 X10^3/uL (150.0-450.0) 06/17/25 03:25 Plt Count Comment Adequate (ADEQUATE) 06/16/25 12:15 MPV 7.5 fL (7.4-11.0) 06/17/25 03:25 Neut % (Auto) 50.0 % (42.0-75.0) 06/17/25 03:25 Lymph % (Auto) 35.0 % (21.0-51.0) 06/17/25 03:25 [place] % (Auto) 9.4 % (0.0-13.0) 06/17/25 03:25 Eos % (Auto) 4.1 % (0.9-2.9) H 06/17/25 03:25 Baso % (Auto) 1.5 % (0.2-1.0) H 06/17/25 03:25 Neut # (Auto) 3.0 x10^3/uL (2.2-4.8) 06/17/25 03:25 Lymph # (Auto) 2.1 X10^3/uL (1.3-2.9) 06/17/25 03:25 [place] # (Auto) 0.6 x10^3/uL (0.3-0.8) 06/17/25 03:25 Eos # (Auto) 0.2 x10^3/uL (0.0-0.2) 06/17/25 03:25 Baso # (Auto) 0.1 X10^3/uL (0.0-0.1) 06/17/25 03:25 Absolute Nucleated RBC 0.2 /100WBC 06/17/25 03:25 Total Counted 100 06/16/25 12:15 Neutrophils % (Manual) 69 % (39-76) 06/16/25 12:15 Lymphocytes % (Manual) 25 % (13-43) 06/16/25 12:15 Monocytes % (Manual) 4 % (4-9) 06/16/25 12:15 Eosinophils % (Manual) 1 % (0-6) 06/16/25 12:15 Plt Morphology Comment Normal (NORMAL) 06/16/25 12:15 RBC Morphology Abnormal (NORMAL) A 06/16/25 12:15 Hypochromasia Slight A 06/16/25 12:15 Anisocytosis 1+ A 06/16/25 12:15 PT 15.4 SECONDS (11.8-14.3) 06/16/25 12:15 INR Target Range - 06/16/25 12:15 INR 1.20 (0.8-1.3) 06/16/25 12:15 Sodium 139 mmol/L (136-145) 06/17/25 03:25 Corrected Sodium TNP 06/17/25 03:25 Potassium 4.0 mmol/L (3.5-5.1) 06/17/25 03:25 Chloride 104 mmol/L (98-107) 06/17/25 03:25 Carbon Dioxide 27.4 mmol/L (21-32) 06/17/25 03:25 BUN 49 mg/dL (7-18) H 06/17/25 03:25 Creatinine 2.29 mg/dL (0.55-1.02) H 06/17/25 03:25 Est GFR (MDRD) Af Amer 27 (>60) L 06/17/25 03:25 Est GFR (MDRD) Non-Af 22 (>60) L 06/17/25 03:25 Glucose 106 mg/dL (65-99) H 06/17/25 03:25 POC Glucose (mg/dL) 98 mg/dL (65-99) 06/17/25 05:34 Calcium 8.3 mg/dL (8.5-10.1) L 06/17/25 03:25 Corrected Calcium 9.1 mg/dL (8.5-10.1) 06/17/25 03:25 Magnesium 2.2 mg/dL (2.0-2.9) 06/17/25 03:25 Total Bilirubin 1.00 mg/dL (0.2-1.0) 06/17/25 03:25 AST 33 Units/L (15-37) 06/17/25 03:25 ALT 24 Units/L (12-78) 06/17/25 03:25 Alkaline Phosphatase 35 Units/L (46-116) L 06/17/25 03:25 Total Protein 6.1 g/dL (6.4-8.2) L 06/17/25 03:25 Albumin 3.0 g/dL (3.4-5.0) L 06/17/25 03:25 Globulin 3.1 g/dL (2.5-4.5) 06/17/25 03:25 Albumin/Globulin Ratio 1.0 Ratio (1.1-2.1) L 06/17/25 03:25 Amylase 52 Units/L (25-115) 06/16/25 12:15 Lipase 94 Units/L (16-77) H 06/16/25 12:15 Stl Occult Blood (IFOB) Negative (NEGATIVE) 06/16/25 20:30 Blood Type O POSITIVE 06/16/25 12:15 Antibody Screen Negative 06/16/25 12:15 Crossmatch See Detail 06/16/25 12:15 Review of Systems Constitutional: Weakness Eyes: No Symptoms Reported ENT: No Symptoms Reported Respiratory: No Symptoms Reported Cardiovascular: No Symptoms Reported Gastrointestinal: Melena Genitourinary: No Symptoms Reported Musculoskeletal: No Symptoms Reported Skin: No Symptoms Reported Neurological: No Symptoms Reported Physical Exam Vital Signs: Vital Signs Temperature 98.2 F Temperature 98.3 F Pulse Rate [Radial] 64 Pulse Rate [Radial] 71 Respiratory Rate 16 Respiratory Rate 18 Blood Pressure [Right Arm] 168/60 Blood Pressure [Right Arm] 152/68 Blood Pressure [Right Arm] 160/60 O2 Sat by Pulse Oximetry 94 O2 Sat by Pulse Oximetry 95 Oriented: Normal Respiratory: Clear Throughout Cardiovascular: Normal Auscultation: Bowel Sounds: Normal Palpation: Normal Tenderness: Normal Skin: Normal Musculoskeletal: Normal Psychiatric: Normal Mood Description: Calm Affect: Normal Speech Pattern: Clear and Appropriate Assessment/Plan (1) GI (gastrointestinal bleed): Qualifiers: GI bleed type/associated pathology: unspecified gastrointestinal hemorrhage type Qualified Code(s): K92.2 - Gastrointestinal hemorrhage, unspecified Status: Acute (2) Gastritis: Qualifiers: Chronicity: chronic Gastritis bleeding: without bleeding Gastritis type: unspecified gastritis Qualified Code(s): K29.50 - Unspecified chronic gastritis without bleeding Status: Acute (3) Acute kidney injury superimposed on CKD: Status: Acute (4) AVM (arteriovenous malformation): Status: Chronic (5) CKD (chronic kidney disease): Qualifiers: Chronic kidney disease stage: unspecified stage Qualified Code(s): N 18.9 - Chronic kidney disease, unspecified Status: Chronic (6) Symptomatic anemia: Status: Acute Review H&P Reviewed: Yes Patient was examined?: Yes
[2025-06-17] MEDS: COREG TAB 25 MG PO SCH (12:30)
[2025-06-17] MEDS: PEPCID 20 MG VIAL 20 MG in NS 50 ML IV 50 ML IV SCH (12:30)
[2025-06-17] MEDS: NEURONTIN CAP 300 MG PO SCH (13:46)
[2025-06-17] MEDS: APRESOLINE TAB 25 MG PO SCH (13:46)
[2025-06-17] MEDS: ZOFRAN INJ 4 MG VIAL IVP PRN (16:39)
[2025-06-17] MEDS: NS 250 ML IV 250 ML IV ONE (18:54)
[2025-06-17] MEDS: TRICOR TAB 160 MG PO SCH (21:02)
[2025-06-18 01:34] VITALS: RESP 18
[2025-06-18 04:57] LABS: MEAN PLATELET VOLUME 7.8 fL (7.4-11.0); RED CELL DISTRIBUTION WIDTH 18.0 % (11.6-16.5)
[2025-06-18 05:11] LABS: COR CA(FOR HYPOALB) 8.9 mg/dL (8.5-10.1); CREATININE 2.10 mg/dL (0.55-1.02); eGFR NON BLACK RACES 24 (>60)
[2025-06-18] MEDS: ESTRACE PO SCH (10:08)
[2025-06-18 10:12] VITALS: BP 136/63; PULSE 62; TEMP 98.5; O2SAT 96
[2025-06-18] MEDS ORDERED: NEURONTIN CAP 100 MG PO SCH (14:00)
[2025-06-18] MEDS ORDERED: TRICOR TAB 48 MG PO SCH (21:00)
--- NOTE | 2025-06-19 11:41 | W.DIS.FURT ---
Summary of Discharge Discharge Summary of Date Date of Exam: 06/18/25 Admission Date Date of Admission: 06/16/25 Admission Diagnosis Patient Problems (Updated 06/17/25 @ 11:24 by Karolyn Collins MD) GI (gastrointestinal bleed) (Acute) K92.2 AVM (arteriovenous malformation) (Chronic) Q27.30 Hospital Course: Patient is a 75-year-old female with a past medical history of anemia, GI bleed due to AVMs, CVA, atrial fibrillation, CAD, type 2 diabetes, hyperlipidemia, CKD and hypertension presented with generalized weakness and melena. Patient was admitted recently for similar symptoms and underwent EGD. She states she was feeling better for a few days and then started feeling weak again and noticed a lot of blood in her stool. ER workup included labs which showed hemoglobin 5.7, creatinine 2.69. She was transfused 2 units of blood, hemoglobin this morning 7.7. Patient reports taking plavix but is not sure if she was told to stop Xarelto due to her renal function. She was supposed to follow-up with GI outpatient for colonoscopy. Her labs were monitored daily and electrolytes replaced as needed. FOBT was negative. She was transfused 1 more unit of blood. Her renal function improved with hydration. She was not having any active bleeding. She was ambualting in the room and tolerating PO intake. She was stable for discharge. She was told to resume plavix. She will need to follow up with GI and cardio. Her hgb was 8.8 prior to discharge. She is already established with home health services. Time spent for clinical assessment, reviewing labs/imaging, physical exam, decision making and documentation greater than 45 mins. Vital Signs: Vital Signs (72 hours) 06/16/25 12:00 06/16/25 12:09 06/16/25 12:10 Temperature 98.1 F Pulse Rate 86 83 Pulse Rate [Radial] Respiratory Rate 16 Blood Pressure 111/55 111/55 Blood Pressure [Right Arm] O2 Sat by Pulse Oximetry 98 97 Oxygen Delivery Method Room Air Oxygen Flow Rate FIO2% 06/16/25 12:17 06/16/25 12:30 06/16/25 12:49 Temperature Pulse Rate 83 82 Pulse Rate [Radial] Respiratory Rate Blood Pressure Blood Pressure [Right Arm] O2 Sat by Pulse Oximetry 98 98 98 Oxygen Delivery Method Oxygen Flow Rate FIO2% 06/16/25 12:50 06/16/25 12:50 06/16/25 12:55 Temperature Pulse Rate 81 78 Pulse Rate [Radial] Respiratory Rate Blood Pressure 175/74 Blood Pressure [Right Arm] O2 Sat by Pulse Oximetry 98 97 Oxygen Delivery Method Oxygen Flow Rate FIO2% 06/16/25 12:55 06/16/25 13:11 06/16/25 13:15 Temperature Pulse Rate 86 84 Pulse Rate [Radial] Respiratory Rate Blood Pressure 170/74 Blood Pressure [Right Arm] O2 Sat by Pulse Oximetry 99 100 Oxygen Delivery Method Oxygen Flow Rate FIO2% 06/16/25 13:30 06/16/25 13:45 06/16/25 14:00 Temperature Pulse Rate 89 85 Pulse Rate [Radial] Respiratory Rate Blood Pressure Blood Pressure [Right Arm] O2 Sat by Pulse Oximetry 100 100 98 Oxygen Delivery Method Oxygen Flow Rate FIO2% 06/16/25 14:01 06/16/25 14:01 06/16/25 14:15 Temperature Pulse Rate 84 74 Pulse Rate [Radial] Respiratory Rate Blood Pressure 191/81 Blood Pressure [Right Arm] O2 Sat by Pulse Oximetry 99 99 Oxygen Delivery Method Oxygen Flow Rate FIO2% 06/16/25 14:30 06/16/25 14:30 06/16/25 14:45 Temperature Pulse Rate 84 74 Pulse Rate [Radial] Respiratory Rate Blood Pressure 190/81 Blood Pressure [Right Arm] O2 Sat by Pulse Oximetry 100 100 Oxygen Delivery Method Oxygen Flow Rate FIO2% 06/16/25 15:00 06/16/25 15:01 06/16/25 15:01 Temperature Pulse Rate 76 75 Pulse Rate [Radial] Respiratory Rate Blood Pressure 189/79 Blood Pressure [Right Arm] O2 Sat by Pulse Oximetry 100 100 Oxygen Delivery Method Oxygen Flow Rate FIO2% 06/16/25 15:16 06/16/25 15:34 06/16/25 17:08 Temperature Pulse Rate Pulse Rate [Radial] Respiratory Rate 18 Blood Pressure Blood Pressure [Right Arm] O2 Sat by Pulse Oximetry Oxygen Delivery Method Nasal Cannula Nasal Cannula Oxygen Flow Rate 2 2 FIO2% 28 06/16/25 19:00 06/16/25 21:35 06/17/25 03:39 Temperature 98.3 F Pulse Rate Pulse Rate [Radial] 71 Respiratory Rate 18 Blood Pressure Blood Pressure [Right Arm] 160/60 O2 Sat by Pulse Oximetry 95 Oxygen Delivery Method Nasal Cannula Nasal Cannula Room Air Oxygen Flow Rate 2 2 FIO2% 28 06/17/25 05:00 06/17/25 07:48 06/17/25 10:01 Temperature 98.2 F Pulse Rate Pulse Rate [Radial] 64 Respiratory Rate 16 Blood Pressure Blood Pressure [Right Arm] 152/68 168/60 O2 Sat by Pulse Oximetry 94 L Oxygen Delivery Method Room Air Nasal Cannula Oxygen Flow Rate 2 FIO2% 06/17/25 10:40 06/17/25 12:00 06/17/25 13:50 Temperature 97.4 F L Pulse Rate Pulse Rate [Radial] 66 Respiratory Rate 18 Blood Pressure Blood Pressure [Right Arm] 198/70 171/75 O2 Sat by Pulse Oximetry 96 Oxygen Delivery Method Room Air Room Air Oxygen Flow Rate 2 FIO2% 28 06/17/25 17:45 06/17/25 19:00 06/17/25 20:00 Temperature 97.6 F 97.6 F Pulse Rate Pulse Rate [Radial] 63 59 L Respiratory Rate 18 20 Blood Pressure Blood Pressure [Right Arm] 150/67 161/70 O2 Sat by Pulse Oximetry 94 L 94 L Oxygen Delivery Method Room Air Room Air Room Air Oxygen Flow Rate FIO2% 06/17/25 20:35 06/17/25 21:00 06/17/25 22:30 Temperature Pulse Rate Pulse Rate [Radial] 63 Respiratory Rate Blood Pressure Blood Pressure [Right Arm] 140/80 O2 Sat by Pulse Oximetry Oxygen Delivery Method Room Air Oxygen Flow Rate FIO2% 06/18/25 00:00 06/18/25 01:00 06/18/25 04:00 Temperature 97.9 F 98.3 F Pulse Rate Pulse Rate [Radial] 65 64 Respiratory Rate 18 18 Blood Pressure Blood Pressure [Right Arm] 166/74 156/66 162/72 O2 Sat by Pulse Oximetry 95 93 L Oxygen Delivery Method Room Air Room Air Oxygen Flow Rate FIO2% 06/18/25 06:00 06/18/25 09:30 Temperature Pulse Rate Pulse Rate [Radial] Respiratory Rate Blood Pressure Blood Pressure [Right Arm] 138/68 O2 Sat by Pulse Oximetry Oxygen Delivery Method Room Air Oxygen Flow Rate FIO2% Labs: Laboratory Last Values WBC 4.6 X10^3/uL (3.6-10.0) 06/18/25 04:36 RBC 3.23 X10^6/uL (3.5-5.4) L 06/18/25 04:36 Hgb 8.8 g/dL (12.0-16.0) L 06/18/25 04:36 Hct 26.6 % (36.0-47.0) L 06/18/25 04:36 MCV 82.4 fL (80.0-100.0) 06/18/25 04:36 MCH 27.2 pg (27.0-34.0) 06/18/25 04:36 MCHC 33.0 g/dL (33.0-35.0) 06/18/25 04:36 RDW 18.0 % (11.6-16.5) H 06/18/25 04:36 Plt Count 213 X10^3/uL (150.0-450.0) 06/18/25 04:36 Plt Count Comment Adequate (ADEQUATE) 06/16/25 12:15 MPV 7.8 fL (7.4-11.0) 06/18/25 04:36 Neut % (Auto) 50.8 % (42.0-75.0) 06/18/25 04:36 Lymph % (Auto) 33.4 % (21.0-51.0) 06/18/25 04:36 [place] % (Auto) 8.7 % (0.0-13.0) 06/18/25 04:36 Eos % (Auto) 5.7 % (0.9-2.9) H 06/18/25 04:36 Baso % (Auto) 1.4 % (0.2-1.0) H 06/18/25 04:36 Neut # (Auto) 2.3 x10^3/uL (2.2-4.8) 06/18/25 04:36 Lymph # (Auto) 1.5 X10^3/uL (1.3-2.9) 06/18/25 04:36 [place] # (Auto) 0.4 x10^3/uL (0.3-0.8) 06/18/25 04:36 Eos # (Auto) 0.3 x10^3/uL (0.0-0.2) H 06/18/25 04:36 Baso # (Auto) 0.1 X10^3/uL (0.0-0.1) 06/18/25 04:36 Absolute Nucleated RBC 0.3 /100WBC 06/18/25 04:36 Total Counted 100 06/16/25 12:15 Neutrophils % (Manual) 69 % (39-76) 06/16/25 12:15 Lymphocytes % (Manual) 25 % (13-43) 06/16/25 12:15 Monocytes % (Manual) 4 % (4-9) 06/16/25 12:15 Eosinophils % (Manual) 1 % (0-6) 06/16/25 12:15 Plt Morphology Comment Normal (NORMAL) 06/16/25 12:15 RBC Morphology Abnormal (NORMAL) A 06/16/25 12:15 Hypochromasia Slight A 06/16/25 12:15 Anisocytosis 1+ A 06/16/25 12:15 PT 15.4 SECONDS (11.8-14.3) 06/16/25 12:15 INR Target Range - 06/16/25 12:15 INR 1.20 (0.8-1.3) 06/16/25 12:15 Sodium 139 mmol/L (136-145) 06/18/25 04:36 Corrected Sodium TNP 06/18/25 04:36 Potassium 4.3 mmol/L (3.5-5.1) 06/18/25 04:36 Chloride 107 mmol/L (98-107) 06/18/25 04:36 Carbon Dioxide 24.3 mmol/L (21-32) 06/18/25 04:36 BUN 35 mg/dL (7-18) H 06/18/25 04:36 Creatinine 2.10 mg/dL (0.55-1.02) H 06/18/25 04:36 Est GFR (MDRD) Af Amer 29 (>60) L 06/18/25 04:36 Est GFR (MDRD) Non-Af 24 (>60) L 06/18/25 04:36 Glucose 100 mg/dL (65-99) H 06/18/25 04:36 POC Glucose (mg/dL) 132 mg/dL (65-99) H 06/18/25 06:19 Calcium 7.9 mg/dL (8.5-10.1) L 06/18/25 04:36 Corrected Calcium 8.9 mg/dL (8.5-10.1) 06/18/25 04:36 Magnesium 2.2 mg/dL (2.0-2.9) 06/17/25 03:25 Total Bilirubin 0.70 mg/dL (0.2-1.0) 06/18/25 04:36 AST 38 Units/L (15-37) H 06/18/25 04:36 ALT 26 Units/L (12-78) 06/18/25 04:36 Alkaline Phosphatase 27 Units/L (46-116) L 06/18/25 04:36 Total Protein 5.8 g/dL (6.4-8.2) L 06/18/25 04:36 Albumin 2.7 g/dL (3.4-5.0) L 06/18/25 04:36 Globulin 3.1 g/dL (2.5-4.5) 06/18/25 04:36 Albumin/Globulin Ratio 0.9 Ratio (1.1-2.1) L 06/18/25 04:36 Amylase 52 Units/L (25-115) 06/16/25 12:15 Lipase 94 Units/L (16-77) H 06/16/25 12:15 Stl Occult Blood (IFOB) Negative (NEGATIVE) 06/16/25 20:30 Blood Type O POSITIVE 06/16/25 12:15 Antibody Screen Negative 06/16/25 12:15 Crossmatch See Detail 06/16/25 12:15 Reason For Visit: GI BLEED Discharge Diagnosis All Active Problems (Updated 06/17/25 @ 11:24 by Karolyn Collins MD) GI (gastrointestinal bleed) (Acute) Gastritis (Acute) Acute kidney injury superimposed on CKD (Acute) AVM (arteriovenous malformation) (Chronic) CKD (chronic kidney disease) (Chronic) Symptomatic anemia (Acute) CHF exacerbation (Acute) Hypertensive emergency without congestive heart failure (Acute) Acute renal failure superimposed on stage 3 chronic kidney disease (Acute) Acute GI bleeding (Acute) Generalized weakness (Acute) Anemia (Acute) Anemia (Acute) Plan of Treatment: Continue with present treatment and follow up plan. Pt is to keep follow up appointment as instructed and take medications as ordered. Discharge Medications Discharge Medications: acetaminophen (From Percocet) Allergy (Verified 06/04/25 15:48) oxycodone (From Percocet) Allergy (Verified 06/04/25 15:48) Xnbpvng-MVP-PoT Reductase Inhibitor (Yutvdyj-Zpd-Ceg Reductase Inhibitor) Allergy (Verified 06/04/25 15:48) CONTINUE taking the following medications icosapent ethyl 1 gram capsule (Vascepa) 1 g PO BID 06/16/25 [History] Discharge Disposition Discharge Disposition: home Discharge Condition: stable Discharge Plan Discharge Plan Hospital Course: Patient is a 75-year-old female with a past medical history of anemia, GI bleed due to AVMs, CVA, atrial fibrillation, CAD, type 2 diabetes, hyperlipidemia, CKD and hypertension presented with generalized weakness and melena. Patient was admitted recently for similar symptoms and underwent EGD. She states she was feeling better for a few days and then started feeling weak again and noticed a lot of blood in her stool. ER workup included labs which showed hemoglobin 5.7, creatinine 2.69. She was transfused 2 units of blood, hemoglobin this morning 7.7. Patient reports taking plavix but is not sure if she was told to stop Xarelto due to her renal function. She was supposed to follow-up with GI outpatient for colonoscopy. Her labs were monitored daily and electrolytes replaced as needed. FOBT was negative. She was transfused 1 more unit of blood. Her renal function improved with hydration. She was not having any active bleeding. She was ambualting in the room and tolerating PO intake. She was stable for discharge. She was told to resume plavix. She will need to follow up with GI and cardio. Her hgb was 8.8 prior to discharge. She is already established with home health services. Time spent for clinical assessment, reviewing labs/imaging, physical exam, decision making and documentation greater than 45 mins. Patient Disposition: HOME HEALTH SERVICE Condition: Stable Health Concerns: Post Hospitalization: new medications and changes needed to prevent readmission or further decline. Pt educated and given instructions on all concerns. Care Plan Goals: Problem: Fluid Volume Deficit Goal: Maintain/Improved Adequate hydration. Instructions: Follow provided instructions. Follow up with primary physician as directed. Contact primary care physician or report to the closest Emergency Room if condition worsens. Plan of Treatment: Continue with present treatment and follow up plan. Pt is to keep follow up appointment as instructed and take medications as ordered. Prescription drug monitoring program results: PDMP reviewed and no concerns identified Prescriptions: Continued carvedilol 25 mg tablet 25 mg PO BID spironolactone 25 mg tablet 25 mg PO QDAY nifedipine 90 mg tablet extended release 24hr 90 mg PO QDAY estradiol 0.5 mg tablet 0.5 mg PO QDAY hydralazine 100 mg Tablet 100 mg PO TID gabapentin 300 mg Capsule 300 mg PO TID fenofibrate 160 mg Tablet 160 mg PO HS levocetirizine 5 mg Tablet 5 mg PO DAILY icosapent ethyl [Vascepa] 1 gram Capsule 1 g PO BID pantoprazole 40 mg tablet,delayed release (DR/EC) 40 mg PO BID furosemide 20 mg tablet 20 mg PO 2XW PRN lorazepam 1 mg Tablet 1 mg PO BID PRN clopidogrel 75 mg tablet 75 mg PO QDAY dapagliflozin propanediol [Farxiga] 10 mg tablet 10 mg PO QDAY ondansetron HCl 4 mg tablet 4 mg PO Q8H PRN icosapent ethyl [Vascepa] 1 gram capsule 1 g PO BID Discontinued Xarelto 20 mg tablet 20 mg PO QDAY Follow ups/Referrals Follow ups/Referrals: Roddy Jasmine [Primary Care Provider, MEDICAL] - 06/25/25 9:00 am RAFFI RASHID [REFERRING] - 1 WEEK Referral Note: Office will call you with appointment. Instructions Instructions: Anemia, Gastrointestinal Bleeding, [id number]-Hvcd Activity Restrictions/Additional Instructions: Follow up with software specialist Stand Alone Forms: Find Help Web Site, [facility] Follow Up Care Print Language: SAMI
== END 2025-06-18 13:09 | disposition home health service (06) ==
LOC: MED/SURG 11:59 → ER 11:59 → MED/SURG 15:35
PROVIDERS: ADMIT Internal Medicine; ATTEND Internal Medicine
DX: I10 Essential (primary) hypertension; R10.84 Generalized abdominal pain; Z86.73 Personal history of transient ischemic attack (TIA), and cerebral infarction without residual deficits; D64.89 Other specified anemias; M19.90 Unspecified osteoarthritis, unspecified site; N17.8 Other acute kidney failure; R53.1 Weakness; K29.50 Unspecified chronic gastritis without bleeding; E83.42 Hypomagnesemia; R79.89 Other specified abnormal findings of blood chemistry; Z95.2 Presence of prosthetic heart valve; K92.2 Gastrointestinal hemorrhage, unspecified; K57.30 Diverticulosis of large intestine without perforation or abscess without bleeding; F32.89 Other specified depressive episodes; I48.91 Unspecified atrial fibrillation; I25.810 Atherosclerosis of coronary artery bypass graft(s) without angina pectoris; R94.4 Abnormal results of kidney function studies; E78.5 Hyperlipidemia, unspecified; Q27.30 Arteriovenous malformation, site unspecified; R94.31 Abnormal electrocardiogram [ECG] [EKG]; E11.65 Type 2 diabetes mellitus with hyperglycemia; E87.1 Hypo-osmolality and hyponatremia; F41.8 Other specified anxiety disorders; N18.9 Chronic kidney disease, unspecified; E83.51 Hypocalcemia

== ENCOUNTER 2025-06-28 17:25 | Observation (INO) ==
[2025-06-28 19:21] LABS: MEAN PLATELET VOLUME 7.2 fL (7.4-11.0); RED CELL DISTRIBUTION WIDTH 17.0 % (11.6-16.5)
[2025-06-28 19:22] LABS: BLOOD/HEMOGLOBIN,URINE NEGATIVE (NEGATIVE); LEUKOCYTE ESTERASE ,URINE NEGATIVE (NEGATIVE); NITRITES,URINE NEGATIVE (NEGATIVE)
[2025-06-28 19:22] LABS: COR CA(FOR HYPOALB) 9.2 mg/dL (8.5-10.1); COR NA(FOR HYPERGLY) 139.0 mmol/L (136-145); CREATININE 2.1 mg/dL (0.55-1.02); eGFR NON BLACK RACES 24.0 (>60)
[2025-06-28 19:31] LABS: APPEARANCE,URINE CLEAR (CLEAR)
[2025-06-28 19:32] LABS: SQUAMOUS EPITHELIAL CELL,UR MODERATE /HPF (NEGATIVE)
--- NOTE | 2025-06-28 21:37 | DR.DIZZY ---
HPI Time seen Time Seen by Provider: 06/28/25 18:34 PCP Primary Care Physician: pepper garcia Complaint Chief Complaint Doctor Comments: Patient with 3 months of generalized weakness and hematochezia. Patient was recently discharged from the hospital due to the same complaint. Patient has had transfusion multiple times. Per patient, Dr. Garcia, her PCP had requested she come into the ER and had coordinated with Dr. Vera, surgeon so they would perform a scope but they wanted to do it with her as an inpatient. Chief Complaint:: pt c/o general weakness and bloody stool x 3 months. pt states she thinks her hemoglobin is low. pt states she was here in the hospital the first of may and received 3 units of blood. pt states her pcp dr. garcia told her to come to the er for evaluation. COVID-19 Coronavirus risk:travel/contact w/high risk person: No Has patient experienced Coronavirus symptoms: No Source History Provided: Patient Mode of Arrival Mode of Arrival: Wheelchair Timing Onset of Chief Complaint: 04/18/25 Context Stroke Symptoms: None PMH PMH Past Medical History: Yes Past Medical History: Coronary Artery Disease, Diabetes and Hypertension Past Medical History Comment: ckd, hld Past Surgical History: Yes Surgical History: Hysterectomy Past Surgical History Comment: back, shoulder Family History History of Family Medical Conditions: Yes Family Medical History: Coronary Artery Disease Social History Does patient currently use any type of tobacco product: No Have you used tobacco products in the last 12 months: No Type of Tobacco Use: None Does any household member use tobacco: No Alcohol Use: None Do you use any recreational Drugs:: No Lives With: Family Lives Where: Home Travel Risk Coronavirus risk:travel/contact w/high risk person: No Has patient experienced Coronavirus symptoms: No Infectious screening In the last 2 months have you had wt loss of >10#?: NO Have you had fever, night sweats or hemotysis?: No Have you traveled outside the country in the last 6 months?: No Isolation: Standard ROS Review of Systems Constitutional: See HPI and Weakness; negative Fever Eyes: No Symptoms Reported ENTM: No Symptoms Reported Respiratoy: No Symptoms Reported; negative Short of Breath Cardiovascular: No Symptoms Reported; negative Chest Pain, Edema, Palpitations or Syncope Gastrointestinal/Abdominal: No Symptoms Reported Genitourinary: No Symptoms Reported Neurological: No Symptoms Reported Musculoskeletal: No Symptoms Reported Integumentary: No Symptoms Reported Hematologic/Lymphatic: No Symptoms Reported Endocrine: No Symptoms Reported Psychiatric: No Symptoms Reported All Other Systems: Reviewed and Negative PE Vital Signs Vitals: Vital Signs Temperature 97.9 F Pulse Rate [Left Radial] 77 Pulse Rate 82 Pulse Rate 80 Pulse Rate 78 Pulse Rate 76 Pulse Rate 78 Pulse Rate 77 Pulse Rate 81 Pulse Rate 82 Pulse Rate 81 Pulse Rate 78 Pulse Rate 83 Respiratory Rate 29 Respiratory Rate 20 Respiratory Rate 18 Respiratory Rate 18 Respiratory Rate 16 Blood Pressure [Left Arm] 206/82 Blood Pressure 171/74 Blood Pressure 200/80 Blood Pressure 206/82 Blood Pressure 206/82 Blood Pressure 195/82 Blood Pressure 196/83 Blood Pressure 188/84 Blood Pressure 184/77 Blood Pressure 195/82 O2 Sat by Pulse Oximetry 97 O2 Sat by Pulse Oximetry 97 O2 Sat by Pulse Oximetry 96 O2 Sat by Pulse Oximetry 97 General Limitations: No Limitations General Appearance: Alert and In No Apparent Distress Head Head Exam: Normal Inspection Eyes Eye exam: Normal Appearance ENT ENT Exam: Normal Exam, Normal Oropharynx and Normal External Ear Exam Neck Neck Exam: Normal Inspection and Full ROM Chest Chest Inspection: Normal Inspection Respiratory Respiratory Exam: Normal Lung Sounds Bilat Cardiovascular Cardiovascular Exam: Regular Rate and Normal Rhythm Abdominal Exam Abdominal Exam: Normal Inspection, Normal Bowel Sounds and Soft; negative Distention, Tenderness, Guarding, Rebound, Rigidity, Organomegaly or Ascites Rectal Rectal Exam: Deferred Extremeties Extremities Exam: Normal Inspection and Full ROM Back Back Exam: Normal Inspection and Full ROM Neurologic Neurological Exam: Alert and Oriented X3 Psychiatric Psychiatric Exam: Normal Affect and Normal Mood Skin Skin Exam: Warm, Dry, Intact and Normal Color COURSE Treatment Treatment: Patient severely anemic with GI bleed. No need for transfusion at this time but borderline for requiring it. Patient agreeable to admission. Discussed with Dr. Collins and she requested Dr. Vera to be consulted. Consultation Consultation Comments: Discussed case with Dr. Wagoner and she is agreeable to admission ROR Labs Reviewed Laboratory Results Reviewed?: Yes 06/28/25 18:58 06/28/25 18:58 Laboratory: WBC 5.7 X10^3/uL (3.6-10.0) 06/28/25 18:58 RBC 2.57 X10^6/uL (3.5-5.4) L 06/28/25 18:58 Hgb 7.0 g/dL (12.0-16.0) L* 06/28/25 18:58 Hct 21.3 % (36.0-47.0) L 06/28/25 18:58 MCV 82.8 fL (80.0-100.0) 06/28/25 18:58 MCH 27.1 pg (27.0-34.0) 06/28/25 18:58 MCHC 32.8 g/dL (33.0-35.0) L 06/28/25 18:58 RDW 17.0 % (11.6-16.5) H 06/28/25 18:58 Plt Count 336 X10^3/uL (150.0-450.0) 06/28/25 18:58 MPV 7.2 fL (7.4-11.0) L 06/28/25 18:58 Neut % (Auto) 50.1 % (42.0-75.0) 06/28/25 18:58 Lymph % (Auto) 34.1 % (21.0-51.0) 06/28/25 18:58 [place] % (Auto) 9.7 % (0.0-13.0) 06/28/25 18:58 Eos % (Auto) 4.1 % (0.9-2.9) H 06/28/25 18:58 Baso % (Auto) 2.0 % (0.2-1.0) H 06/28/25 18:58 Neut # (Auto) 2.9 x10^3/uL (2.2-4.8) 06/28/25 18:58 Lymph # (Auto) 2.0 X10^3/uL (1.3-2.9) 06/28/25 18:58 [place] # (Auto) 0.6 x10^3/uL (0.3-0.8) 06/28/25 18:58 Eos # (Auto) 0.2 x10^3/uL (0.0-0.2) 06/28/25 18:58 Baso # (Auto) 0.1 X10^3/uL (0.0-0.1) 06/28/25 18:58 Absolute Nucleated RBC 0.0 /100WBC 06/28/25 18:58 Sodium 139 mmol/L (136-145) 06/28/25 18:58 Corrected Sodium 139 mmol/L (136-145) 06/28/25 18:58 Potassium 4.2 mmol/L (3.5-5.1) 06/28/25 18:58 Chloride 102 mmol/L (98-107) 06/28/25 18:58 Carbon Dioxide 27.1 mmol/L (21-32) 06/28/25 18:58 BUN 37 mg/dL (7-18) H 06/28/25 18:58 Creatinine 2.10 mg/dL (0.55-1.02) H 06/28/25 18:58 Est GFR (MDRD) Af Amer 29 (>60) L 06/28/25 18:58 Est GFR (MDRD) Non-Af 24 (>60) L 06/28/25 18:58 Glucose 115 mg/dL (65-99) H 06/28/25 18:58 Calcium 8.4 mg/dL (8.5-10.1) L 06/28/25 18:58 Corrected Calcium 9.2 mg/dL (8.5-10.1) 06/28/25 18:58 Total Bilirubin 0.40 mg/dL (0.2-1.0) 06/28/25 18:58 AST 34 Units/L (15-37) 06/28/25 18:58 ALT 25 Units/L (12-78) 06/28/25 18:58 Alkaline Phosphatase 35 Units/L (46-116) L 06/28/25 18:58 Total Protein 6.7 g/dL (6.4-8.2) 06/28/25 18:58 Albumin 3.0 g/dL (3.4-5.0) L 06/28/25 18:58 Globulin 3.7 g/dL (2.5-4.5) 06/28/25 18:58 Albumin/Globulin Ratio 0.8 Ratio (1.1-2.1) L 06/28/25 18:58 Specimen Type Clean catch urine 06/28/25 19:09 Urine Color Yellow (YELLOW) 06/28/25 19:09 Urine Appearance Clear (CLEAR) 06/28/25 19:09 Urine pH 6.0 (5.0 - 8.0) 06/28/25 19:09 Ur Specific [place] 1.020 (1.000-1.030) 06/28/25 19:09 Urine Protein 3+ (NEGATIVE) 06/28/25 19:09 Urine Glucose (UA) Negative (NEGATIVE) 06/28/25 19:09 Urine Ketones Negative (NEGATIVE) 06/28/25 19:09 Urine Blood Negative (NEGATIVE) 06/28/25 19:09 Urine Nitrite Negative (NEGATIVE) 06/28/25 19:09 Urine Bilirubin Negative (NEGATIVE) 06/28/25 19:09 Urine Urobilinogen Normal (NORMAL) 06/28/25 19:09 Ur Leukocyte Esterase Negative (NEGATIVE) 06/28/25 19:09 Urine RBC 0-2 /HPF (0-3) 06/28/25 19:09 Urine WBC None seen /HPF (0-5) 06/28/25 19:09 Ur Squamous Epith Cells Moderate /HPF (NEGATIVE) 06/28/25 19:09 Urine Bacteria Negative /HPF (NEGATIVE) 06/28/25 19:09 Granular Casts Rare /LPF (NEGATIVE) 06/28/25 19:09 Ur Culture Indicated? No/not indicated 06/28/25 19:09 Opioid Opioid Risk Tool Age (Chong box if 16-45): No History of Preadolescent Sexual Abuse: No Total: 0 Total Score Risk Category: Low Risk Copyright: Pillo WATSON predicting aberrant behaviors Discharge Plan Diagnosis Discharge Problem: Anemia GI (gastrointestinal bleed) Qualifiers: GI bleed type/associated pathology: unspecified gastrointestinal hemorrhage type Qualified Code(s): K92.2 - Gastrointestinal hemorrhage, unspecified Discharge Plan Patient Disposition: 09 ADMITTED INPATIENT Condition: Stable Prescriptions: No Action carvedilol 25 mg tablet 25 mg PO BID spironolactone 25 mg tablet 25 mg PO QDAY nifedipine 90 mg tablet extended release 24hr 90 mg PO QDAY estradiol 0.5 mg tablet 0.5 mg PO QDAY hydralazine 100 mg Tablet 100 mg PO TID gabapentin 300 mg Capsule 300 mg PO TID fenofibrate 160 mg Tablet 160 mg PO HS levocetirizine 5 mg Tablet 5 mg PO DAILY icosapent ethyl [Vascepa] 1 gram Capsule 1 g PO BID pantoprazole 40 mg tablet,delayed release (DR/EC) 40 mg PO BID furosemide 20 mg tablet 20 mg PO 2XW PRN lorazepam 1 mg Tablet 1 mg PO BID PRN clopidogrel 75 mg tablet 75 mg PO QDAY dapagliflozin propanediol [Farxiga] 10 mg tablet 10 mg PO QDAY ondansetron HCl 4 mg tablet 4 mg PO Q8H PRN icosapent ethyl [Vascepa] 1 gram capsule 1 g PO BID Health Concerns: Post Hospitalization: new medications and changes needed to prevent readmission or further decline. Pt educated and given instructions on all concerns. Plan of Treatment: Continue with present treatment and follow up plan. Pt is to keep follow up appointment as instructed and take medications as ordered. Orders to Discharge Patient Discharge Orders: Transfer (Routine); Ordered 06/28/25 Ordered By: Luis Carlos Jiang Follow ups/Referrals Follow ups/Referrals: Roddy Garcia [Primary Care Provider, MEDICAL] - 3 days Instructions Stand Alone Forms: Find Help Web Site, Post Hospital Follow Up Care Print Language: YI
[2025-06-29] MEDS ORDERED: NovoLIN R (or HumuLIN R) SUBCUT PRN (00:14)
[2025-06-29] MEDS: NS 1,000 ML IV 1,000 ML IV SCH (01:22)
[2025-06-29 03:42] VITALS: BMI 27.7
[2025-06-29] MEDS: ZOFRAN INJ 4 MG VIAL IVP PRN (04:34)
[2025-06-29 06:02] LABS: MEAN PLATELET VOLUME 7.0 fL (7.4-11.0); RED CELL DISTRIBUTION WIDTH 17.6 % (11.6-16.5)
[2025-06-29 06:16] LABS: COR CA(FOR HYPOALB) 9.1 mg/dL (8.5-10.1); CREATININE 2.11 mg/dL (0.55-1.02); eGFR NON BLACK RACES 24 (>60)
[2025-06-29] MEDS: CONSULT PHARMACY - POTASSIUM & MAGNESIUM XX SCH (08:15)
[2025-06-29] MEDS: K-DUR TAB 20 MEQ PO SCH (09:37)
[2025-06-29] MEDS: APRESOLINE TAB 25 MG PO SCH (09:55)
[2025-06-29] MEDS: PROTONIX INJ 40 MG VIAL IVP SCH (09:57)
[2025-06-29] MEDS: NS + KCL 20 MEQ/L 1,000 ML IV SCH (09:57)
[2025-06-29] MEDS: NS 500 ML IV 500 ML IV ONE (11:10)
--- NOTE | 2025-06-29 21:12 | DR.H&P ---
H&P History & Physical for Day of: H&P Date: 06/29/25 Chief Complaint Chief Complaint: weakness History of Present Illness History of Present Illness: Patient is a 75-year-old female with a past medical history of anemia, GI bleed due to AVMs, CVA, atrial fibrillation, CAD, type 2 diabetes, hyperlipidemia, CKD and hypertension presented with generalized weakness and melena. Patient with 3 months of generalized weakness and hematochezia. Patient was recently discharged from the hospital due to the same complaint. Patient has had transfusion multiple times. Patient has seen GI-Dr Calvert in [place] but each time they schedule further work up she ends up severely anemic and back at the hospital. Per patient, Dr. Jasmine, her PCP had requested she come into the ER and had coordinated with Dr. Vera, surgeon so they would perform a scope but they wanted to do it with her as an inpatient. Labs/imaging: WBC 6, hemoglobin 6.8, platelets 345, sodium 137, potassium 3.6, creatinine 2.11, glucose 104, UA negative, Hemoccult pending. Patient was not admitted for symptomatic anemia due to GI bleed. She was ordered 1 unit of packed red blood cells will order another unit. Will keep patient n.p.o. until general surgery that has been consulted and has evaluated. Continue with IV fluids normal saline at 60 mL/h. Hold any anticoagulations. Order IV protonix 40mg daily. Will review home medication restart accordingly. Otherwise continue with current treatment plan. Continue closely monitor follow-up labs/imaging and recommendations per surgery. Past Medical History Past Medical History: Coronary Artery Disease, Diabetes and Hypertension Additional Medical History: BLEEDING AVMs Past Surgical History Surgical History: Angioplasty/Stents, CABG/Valve Surgery, Hysterectomy and Ortho Surgery Family History Family Medical History: Diabetes Mellitus, Cancer and Hypertension Social History Does patient currently use any type of tobacco product: No Have you used tobacco products in the last 12 months: No Type of Tobacco Use: Cigarettes How many years tobacco product used: 59 Does any household member use tobacco: No Alcohol Use: None Drug Use: None Medications Home Medications: Home Medications Medication Instructions Recorded Confirmed Type gabapentin 300 mg capsule 300 mg PO TID PRN 12/24/23 1 08/29/24 History clopidogrel 75 mg tablet 75 mg PO QDAY 06/28/2506/28 History dapagliflozin propanediol 10 mg 10 mg PO QDAY 06/28/25 06/28/25 History tablet (Farxiga) estradiol 0.5 mg tablet 0.5 mg PO QDAY 06/28/2506/18 History evolocumab 140 mg/mL subcutaneous 140 mg subcut Q2W 06/28/25 History pen injector (Kwame Medeiros) fenofibrate 160 mg tablet 160 mg PO QDAY 06/28/2506/18 History furosemide 20 mg tablet 20 mg PO PRN PRN 06/28/25 History hydralazine 100 mg tablet 100 mg PO TID 06/28/2506/28 History icosapent ethyl 1 gram capsule 1 g PO BID 06/28/2506/12 History (Vascepa) levocetirizine 5 mg tablet 5 mg PO QDAY 06/28/2506/28 History lorazepam 1 mg tablet 1 mg PO BID 06/28/25 History nifedipine 90 mg tablet,extended 90 mg PO QDAY 5 06/28/25 History release 24 hr pantoprazole 40 mg tablet,delayed 40 mg PO BID 5 06/28/25 History release semaglutide 7 mg tablet (Rybelsus) 7 mg PO QDAY 06/28/25 History Allergies Allergies Allergy/AdvReac Type Severity Reaction Status Date / Time oxycodone (From Percocet) Allergy Verified 06/28/25 22:24 Aufsqcu-CVA-RkG Reductase Allergy Verified 06/28/25 22:24 Inhibitor (Rfknykl-Bwy-Hxg Reductase Inhibitor) Labs 06/29/25 18:09 06/29/25 05:34 Labs: Laboratory WBC 6.0 X10^3/uL (3.6-10.0) 06/29/25 05:34 RBC 2.45 X10^6/uL (3.5-5.4) L 06/29/25 05:34 Hgb 9.8 g/dL (12.0-16.0) L D 06/29/25 18:09 Hct 28.9 % (36.0-47.0) L 06/29/25 18:09 MCV 82.3 fL (80.0-100.0) 06/29/25 05:34 MCH 27.9 pg (27.0-34.0) 06/29/25 05:34 MCHC 33.9 g/dL (33.0-35.0) 06/29/25 05:34 RDW 17.6 % (11.6-16.5) H 06/29/25 05:34 Plt Count 345 X10^3/uL (150.0-450.0) 06/29/25 05:34 MPV 7.0 fL (7.4-11.0) L 06/29/25 05:34 Neut % (Auto) 47.7 % (42.0-75.0) 06/29/25 05:34 Lymph % (Auto) 34.7 % (21.0-51.0) 06/29/25 05:34 [place] % (Auto) 10.8 % (0.0-13.0) 06/29/25 05:34 Eos % (Auto) 5.0 % (0.9-2.9) H 06/29/25 05:34 Baso % (Auto) 1.8 % (0.2-1.0) H 06/29/25 05:34 Neut # (Auto) 2.8 x10^3/uL (2.2-4.8) 06/29/25 05:34 Lymph # (Auto) 2.1 X10^3/uL (1.3-2.9) 06/29/25 05:34 [place] # (Auto) 0.6 x10^3/uL (0.3-0.8) 06/29/25 05:34 Eos # (Auto) 0.3 x10^3/uL (0.0-0.2) H 06/29/25 05:34 Baso # (Auto) 0.1 X10^3/uL (0.0-0.1) 06/29/25 05:34 Absolute Nucleated RBC 0.1 /100WBC 06/29/25 05:34 Sodium 137 mmol/L (136-145) 06/29/25 05:34 Corrected Sodium TNP 06/29/25 05:34 Potassium 3.6 mmol/L (3.5-5.1) 06/29/25 05:34 Chloride 101 mmol/L (98-107) 06/29/25 05:34 Carbon Dioxide 25.8 mmol/L (21-32) 06/29/25 05:34 BUN 38 mg/dL (7-18) H 06/29/25 05:34 Creatinine 2.11 mg/dL (0.55-1.02) H 06/29/25 05:34 Est GFR (MDRD) Af Amer 29 (>60) L 06/29/25 05:34 Est GFR (MDRD) Non-Af 24 (>60) L 06/29/25 05:34 Glucose 104 mg/dL (65-99) H 06/29/25 05:34 POC Glucose (mg/dL) 129 mg/dL (65-99) H 06/29/25 20:34 Calcium 8.1 mg/dL (8.5-10.1) L 06/29/25 05:34 Corrected Calcium 9.1 mg/dL (8.5-10.1) 06/29/25 05:34 Total Bilirubin 0.30 mg/dL (0.2-1.0) 06/29/25 05:34 AST 43 Units/L (15-37) H 06/29/25 05:34 ALT 27 Units/L (12-78) 06/29/25 05:34 Alkaline Phosphatase 43 Units/L (46-116) L 06/29/25 05:34 Total Protein 6.4 g/dL (6.4-8.2) 06/29/25 05:34 Albumin 2.8 g/dL (3.4-5.0) L 06/29/25 05:34 Globulin 3.6 g/dL (2.5-4.5) 06/29/25 05:34 Albumin/Globulin Ratio 0.8 Ratio (1.1-2.1) L 06/29/25 05:34 Specimen Type Clean catch urine 06/28/25 19:09 Urine Color Yellow (YELLOW) 06/28/25 19:09 Urine Appearance Clear (CLEAR) 06/28/25 19:09 Urine pH 6.0 (5.0 - 8.0) 06/28/25 19:09 Ur Specific [place] 1.020 (1.000-1.030) 06/28/25 19:09 Urine Protein 3+ (NEGATIVE) 06/28/25 19:09 Urine Glucose (UA) Negative (NEGATIVE) 06/28/25 19:09 Urine Ketones Negative (NEGATIVE) 06/28/25 19:09 Urine Blood Negative (NEGATIVE) 06/28/25 19:09 Urine Nitrite Negative (NEGATIVE) 06/28/25 19:09 Urine Bilirubin Negative (NEGATIVE) 06/28/25 19:09 Urine Urobilinogen Normal (NORMAL) 06/28/25 19:09 Ur Leukocyte Esterase Negative (NEGATIVE) 06/28/25 19:09 Urine RBC 0-2 /HPF (0-3) 06/28/25 19:09 Urine WBC None seen /HPF (0-5) 06/28/25 19:09 Ur Squamous Epith Cells Moderate /HPF (NEGATIVE) 06/28/25 19:09 Urine Bacteria Negative /HPF (NEGATIVE) 06/28/25 19:09 Granular Casts Rare /LPF (NEGATIVE) 06/28/25 19:09 Ur Culture Indicated? No/not indicated 06/28/25 19:09 Blood Type O POSITIVE 06/29/25 07:20 Antibody Screen Negative 06/29/25 07:20 Crossmatch See Detail 06/29/25 07:20 Review of Systems Constitutional: Weakness Eyes: No Symptoms Reported ENT: No Symptoms Reported Respiratory: No Symptoms Reported Cardiovascular: No Symptoms Reported Gastrointestinal: No Symptoms Reported Genitourinary: No Symptoms Reported Musculoskeletal: No Symptoms Reported Skin: No Symptoms Reported Neurological: No Symptoms Reported Physical Exam Vital Signs: Vital Signs Temperature 97.9 F Temperature 98.1 F Pulse Rate [Left Radial] 72 Pulse Rate [Left Radial] 78 Respiratory Rate 17 Respiratory Rate 16 Blood Pressure [Left Arm] 133/62 Blood Pressure [Left Arm] 106/54 O2 Sat by Pulse Oximetry 98 O2 Sat by Pulse Oximetry 96 Oriented: Normal Eyes: Normal Ear: Normal Nose: Normal Throat: Normal Respiratory: Clear Throughout Cardiovascular: Normal : Normal Auscultation: Bowel Sounds: Normal Palpation: Normal Tenderness: Normal Skin: Normal Musculoskeletal: Normal Psychiatric: Normal Mood Description: Calm and Appropriate Affect: Normal Speech Pattern: Clear and Appropriate Assessment/Plan (1) GI (gastrointestinal bleed): Qualifiers: GI bleed type/associated pathology: unspecified gastrointestinal hemorrhage type Qualified Code(s): K92.2 - Gastrointestinal hemorrhage, unspecified Status: Acute (2) AVM (arteriovenous malformation): Status: Chronic (3) Anemia: Status: Acute (4) Hypertension: Status: Acute (5) Atrial fibrillation: Status: Acute (6) Hyperlipidemia: Status: Acute (7) CKD (chronic kidney disease): Qualifiers: Chronic kidney disease stage: unspecified stage Qualified Code(s): N 18.9 - Chronic kidney disease, unspecified Status: Chronic Review H&P Reviewed: Yes Patient was examined?: Yes
[2025-06-29] MEDS: SNACK - Diabetic Appropriate PO SCH (21:50)
[2025-06-30 05:07] LABS: MEAN PLATELET VOLUME 7.1 fL (7.4-11.0); RED CELL DISTRIBUTION WIDTH 16.0 % (11.6-16.5)
[2025-06-30 05:19] LABS: COR CA(FOR HYPOALB) 9.2 mg/dL (8.5-10.1); COR NA(FOR HYPERGLY) 139.0 mmol/L (136-145); CREATININE 2.11 mg/dL (0.55-1.02); eGFR NON BLACK RACES 24.0 (>60)
--- NOTE | 2025-06-30 11:13 | DR.PROGNOT ---
HOSPITAL PROGRESS NOTE Progress Note for Day of: Progress Note Date: 06/30/25 Chief Complaint Chief Complaint: Patient seems to be stable with no actively bleeding today, had normal bowel movement today. Complaining of mild nausea, no vomiting. Her hemoglobin is stable 9.9, BUN and creatinine are slightly elevated at 33 and 2.1. Patient is alert cooperative and oriented with soft flat abdomen, nontender. Past Medical Family Social History Allergies: Allergies oxycodone (From Percocet) Allergy (Verified 06/28/25 22:24) Zzjdsxb-LRP-OnJ Reductase Inhibitor (Ivpdpds-Jsd-Qbv Reductase Inhibitor) Allergy (Verified 06/28/25 22:24) Vital Signs Vital Signs: Vital Signs Temperature 98.1 F Temperature 98.0 F Pulse Rate [Left Radial] 64 Pulse Rate [Left Radial] 71 Respiratory Rate 18 Respiratory Rate 18 Blood Pressure [Right Arm] 200/60 Blood Pressure [Right Arm] 156/94 O2 Sat by Pulse Oximetry 94 O2 Sat by Pulse Oximetry 98 Physical Exam Oriented: Normal Eyes: Normal Ear: Normal Nose: Normal Throat: Normal Cardiovascular: Normal : Normal GI:Auscultation: Normal GI:Palpation: Normal GI: Tenderness: Normal Skin: Normal Musculoskeletal: Normal Psychiatric: Normal Mood Description: Calm and Appropriate Affect: Normal Speech Pattern: Clear and Appropriate Laboratory and Diagnostics 06/30/25 04:51 06/30/25 04:51 Labs: Laboratory WBC 5.5 X10^3/uL (3.6-10.0) 06/30/25 04:51 RBC 3.55 X10^6/uL (3.5-5.4) 06/30/25 04:51 Hgb 9.9 g/dL (12.0-16.0) L 06/30/25 04:51 Hct 29.1 % (36.0-47.0) L 06/30/25 04:51 MCV 82.0 fL (80.0-100.0) 06/30/25 04:51 MCH 28.0 pg (27.0-34.0) 06/30/25 04:51 MCHC 34.1 g/dL (33.0-35.0) 06/30/25 04:51 RDW 16.0 % (11.6-16.5) 06/30/25 04:51 Plt Count 317 X10^3/uL (150.0-450.0) 06/30/25 04:51 MPV 7.1 fL (7.4-11.0) L 06/30/25 04:51 Neut % (Auto) 55.8 % (42.0-75.0) 06/30/25 04:51 Lymph % (Auto) 30.8 % (21.0-51.0) 06/30/25 04:51 [place] % (Auto) 7.5 % (0.0-13.0) 06/30/25 04:51 Eos % (Auto) 4.8 % (0.9-2.9) H 06/30/25 04:51 Baso % (Auto) 1.1 % (0.2-1.0) H 06/30/25 04:51 Neut # (Auto) 3.1 x10^3/uL (2.2-4.8) 06/30/25 04:51 Lymph # (Auto) 1.7 X10^3/uL (1.3-2.9) 06/30/25 04:51 [place] # (Auto) 0.4 x10^3/uL (0.3-0.8) 06/30/25 04:51 Eos # (Auto) 0.3 x10^3/uL (0.0-0.2) H 06/30/25 04:51 Baso # (Auto) 0.1 X10^3/uL (0.0-0.1) 06/30/25 04:51 Absolute Nucleated RBC 0.2 /100WBC 06/30/25 04:51 Sodium 139 mmol/L (136-145) 06/30/25 04:51 Corrected Sodium 139 mmol/L (136-145) 06/30/25 04:51 Potassium 4.3 mmol/L (3.5-5.1) 06/30/25 04:51 Chloride 105 mmol/L (98-107) 06/30/25 04:51 Carbon Dioxide 25.7 mmol/L (21-32) 06/30/25 04:51 BUN 33 mg/dL (7-18) H 06/30/25 04:51 Creatinine 2.11 mg/dL (0.55-1.02) H 06/30/25 04:51 Est GFR (MDRD) Af Amer 29 (>60) L 06/30/25 04:51 Est GFR (MDRD) Non-Af 24 (>60) L 06/30/25 04:51 Glucose 118 mg/dL (65-99) H 06/30/25 04:51 POC Glucose (mg/dL) 133 mg/dL (65-99) H 06/30/25 10:58 Calcium 8.4 mg/dL (8.5-10.1) L 06/30/25 04:51 Corrected Calcium 9.2 mg/dL (8.5-10.1) 06/30/25 04:51 Magnesium 2.1 mg/dL (2.0-2.9) 06/30/25 04:51 Total Bilirubin 0.50 mg/dL (0.2-1.0) 06/30/25 04:51 AST 39 Units/L (15-37) H 06/30/25 04:51 ALT 21 Units/L (12-78) 06/30/25 04:51 Alkaline Phosphatase 43 Units/L (46-116) L 06/30/25 04:51 Total Protein 6.7 g/dL (6.4-8.2) 06/30/25 04:51 Albumin 3.0 g/dL (3.4-5.0) L 06/30/25 04:51 Globulin 3.7 g/dL (2.5-4.5) 06/30/25 04:51 Albumin/Globulin Ratio 0.8 Ratio (1.1-2.1) L 06/30/25 04:51 Specimen Type Clean catch urine 06/28/25 19:09 Urine Color Yellow (YELLOW) 06/28/25 19:09 Urine Appearance Clear (CLEAR) 06/28/25 19:09 Urine pH 6.0 (5.0 - 8.0) 06/28/25 19:09 Ur Specific [place] 1.020 (1.000-1.030) 06/28/25 19:09 Urine Protein 3+ (NEGATIVE) 06/28/25 19:09 Urine Glucose (UA) Negative (NEGATIVE) 06/28/25 19:09 Urine Ketones Negative (NEGATIVE) 06/28/25 19:09 Urine Blood Negative (NEGATIVE) 06/28/25 19:09 Urine Nitrite Negative (NEGATIVE) 06/28/25 19:09 Urine Bilirubin Negative (NEGATIVE) 06/28/25 19:09 Urine Urobilinogen Normal (NORMAL) 06/28/25 19:09 Ur Leukocyte Esterase Negative (NEGATIVE) 06/28/25 19:09 Urine RBC 0-2 /HPF (0-3) 06/28/25 19:09 Urine WBC None seen /HPF (0-5) 06/28/25 19:09 Ur Squamous Epith Cells Moderate /HPF (NEGATIVE) 06/28/25 19:09 Urine Bacteria Negative /HPF (NEGATIVE) 06/28/25 19:09 Granular Casts Rare /LPF (NEGATIVE) 06/28/25 19:09 Ur Culture Indicated? No/not indicated 06/28/25 19:09 Blood Type O POSITIVE 06/29/25 07:20 Antibody Screen Negative 06/29/25 07:20 Crossmatch See Detail 06/29/25 07:20 Assessment and Plan 1: Anemia with melanotic stool required transfusion. Known history of AV malformation of the upper jejunum. For colonoscopy on Wednesday. Problem Patient Problems: Patient Problems GI (gastrointestinal bleed) (Acute) K92.2 Anemia (Acute) D64.9
[2025-06-30] MEDS ORDERED: CATAPRES-TTS-2 TD ONE (11:34)
[2025-06-30] MEDS: CATAPRES-TTS-2 TD SCH (11:38)
[2025-06-30] MEDS: CATAPRES TAB 0.1 MG PO ONE (12:07)
--- NOTE | 2025-06-30 16:07 | NOTE.SOAP ---
Soap Note Note for Day of Date of Exam: 06/30/25 Subjective Data Subjective Data: Patient seen for daily hospital rounds. Sent to the ER by her PCP for admission due to acute on chronic GI bleed. Outpatient colonoscopies keep being delayed due to admissions for blood transfusions. Reports she feels about the same today. Colonoscopy planned for Wednesday with prep tomorrow. Hemoglobin 9.9 today. Blood pressure remains severely elevated. Objective Data Objective Data: Elderly female in no acute distress. Able to sit up in bed without difficulty. Head NCAT with hearing grossly normal. Heart regular rate and rhythm with lungs clear. Mood and affect are appropriate. Assessment Assessment: Recurrent GIB Acute on chronic anemia CKD3b HTN Plan Plan: Add clonidine
[2025-07-01 06:39] LABS: MEAN PLATELET VOLUME 7.2 fL (7.4-11.0); RED CELL DISTRIBUTION WIDTH 15.9 % (11.6-16.5)
[2025-07-01 06:52] LABS: COR CA(FOR HYPOALB) 9.2 mg/dL (8.5-10.1); COR NA(FOR HYPERGLY) 140.0 mmol/L (136-145); CREATININE 1.82 mg/dL (0.55-1.02); eGFR NON BLACK RACES 29.0 (>60)
[2025-07-01] MEDS: SUPREP BOWEL PREP KIT PO SCH (13:23)
[2025-07-01] MEDS ORDERED: CARDURA ONE (15:12)
--- NOTE | 2025-07-01 15:23 | NOTE.SOAP ---
Soap Note Note for Day of Date of Exam: 07/01/25 Subjective Data Subjective Data: Patient seen for daily rounds. Still planning on a colonoscopy tomorrow. Seems to be a little jittery and forgetful today compared to yesterday per nursing. Blood pressure remains elevated but better than yesterday. Objective Data Objective Data: Elderly female in no acute distress. Some mild confusion but answers questions appropriately, yet slowly. Heart regular rate and rhythm. Lungs clear. Bowel sounds present. Head NCAT. Assessment Assessment: Recurrent GIB Acute on chronic anemia CKD4 HTN Plan Plan: Add on doxazosin 1 mg daily.
[2025-07-01] MEDS: CARDURA PO SCH (15:49)
[2025-07-01] MEDS: ATIVAN TAB 1 MG PO SCH (15:49)
[2025-07-01] MEDS ORDERED: CARDURA PO SCH (21:00)
[2025-07-01] MEDS ORDERED: BUTT CREAM (COMPOUND) TOP PRN (23:12)
[2025-07-02 06:04] LABS: MEAN PLATELET VOLUME 6.9 fL (7.4-11.0); RED CELL DISTRIBUTION WIDTH 15.8 % (11.6-16.5)
[2025-07-02 06:16] LABS: COR CA(FOR HYPOALB) 9.3 mg/dL (8.5-10.1); COR NA(FOR HYPERGLY) 143.0 mmol/L (136-145); CREATININE 1.78 mg/dL (0.55-1.02); eGFR NON BLACK RACES 29.0 (>60)
[2025-07-02] MEDS ORDERED: CONSULT PHARMACY - POTASSIUM & MAGNESIUM XX SCH (07:00)
[2025-07-02] MEDS: NS + KCL 40 MEQ/L 1,000 ML with MAGNESIUM SULFATE 50% INJ VIAL 1 G IV SCH (08:07)
[2025-07-02] MEDS ORDERED: CARDURA PO SCH (09:00)
--- NOTE | 2025-07-02 10:17 | PCM.PROG ---
Progress Note Progress Note for Day of Date of Exam: 07/02/25 Subjective Subjective: Patient seen at bedside, no acute events overnight. She is currently admitted for GI bleed and anemia. She is scheduled for colonoscopy today. She denies having any dark stools or any blood since Wednesday. Her hemoglobin is 9.2. She has received 2 units of blood so far. Labs/imaging reviewed: - WBC 5.4 hemoglobin 9.2 potassium 3.8 creatinine 1.78 magnesium 1.9 Plan: Scheduled for colonoscopy today, follow-up for results. Monitor hemoglobin. Transfuse as needed. Replace electrolytes as per protocol. Continue home medications. Monitor a.m. labs and imaging. Past Medical Family Social History Allergies: Allergies oxycodone (From Percocet) Allergy (Verified 06/28/25 22:24) Peaxive-VTM-VpW Reductase Inhibitor (Xjhcaja-Xdv-Egt Reductase Inhibitor) Allergy (Verified 06/28/25 22:24) Vital Signs and I&O's Vital Signs: Vital Signs Temperature 97.1 F Temperature 98.6 F Pulse Rate [Left Radial] 92 Pulse Rate [Left Radial] 95 Respiratory Rate 18 Respiratory Rate 19 Blood Pressure [Right Arm] 119/59 Blood Pressure [Right Arm] 112/62 O2 Sat by Pulse Oximetry 96 O2 Sat by Pulse Oximetry 94 Intake and Output: Intake & Output 06/29/25 06/30/25 07/01/25 07/02/25 23:59 23:59 23:59 23:59 Intake Total 2832 / 2832 2080 / 2080 1399 / 1399 0 / 0 Balance 2832 / 2832 2080 / 2080 1399 / 1399 0 / 0 Physical Exam Oriented: Normal Eyes: Normal Ear: Normal Nose: Normal Throat: Normal Respiratory: Normal Cardiovascular: Normal Auscultation: Bowel Sounds: Normal Palpation: Normal Tenderness: Normal Skin: Normal Musculoskeletal: Normal Psychiatric: Normal Mood Description: Calm and Appropriate Affect: Normal Speech Pattern: Clear and Appropriate Laboratory and Diagnostics 07/02/25 05:42 07/02/25 05:42 Labs: Laboratory WBC 5.4 X10^3/uL (3.6-10.0) 07/02/25 05:42 RBC 3.34 X10^6/uL (3.5-5.4) L 07/02/25 05:42 Hgb 9.2 g/dL (12.0-16.0) L 07/02/25 05:42 Hct 27.5 % (36.0-47.0) L 07/02/25 05:42 MCV 82.5 fL (80.0-100.0) 07/02/25 05:42 MCH 27.6 pg (27.0-34.0) 07/02/25 05:42 MCHC 33.5 g/dL (33.0-35.0) 07/02/25 05:42 RDW 15.8 % (11.6-16.5) 07/02/25 05:42 Plt Count 320 X10^3/uL (150.0-450.0) 07/02/25 05:42 MPV 6.9 fL (7.4-11.0) L 07/02/25 05:42 Neut % (Auto) 59.9 % (42.0-75.0) 07/02/25 05:42 Lymph % (Auto) 26.5 % (21.0-51.0) 07/02/25 05:42 [place] % (Auto) 10.2 % (0.0-13.0) 07/02/25 05:42 Eos % (Auto) 1.9 % (0.9-2.9) 07/02/25 05:42 Baso % (Auto) 1.5 % (0.2-1.0) H 07/02/25 05:42 Neut # (Auto) 3.3 x10^3/uL (2.2-4.8) 07/02/25 05:42 Lymph # (Auto) 1.4 X10^3/uL (1.3-2.9) 07/02/25 05:42 [place] # (Auto) 0.6 x10^3/uL (0.3-0.8) 07/02/25 05:42 Eos # (Auto) 0.1 x10^3/uL (0.0-0.2) 07/02/25 05:42 Baso # (Auto) 0.1 X10^3/uL (0.0-0.1) 07/02/25 05:42 Absolute Nucleated RBC 0.1 /100WBC 07/02/25 05:42 Sodium 143 mmol/L (136-145) 07/02/25 05:42 Corrected Sodium 143 mmol/L (136-145) 07/02/25 05:42 Potassium 3.8 mmol/L (3.5-5.1) 07/02/25 05:42 Chloride 106 mmol/L (98-107) 07/02/25 05:42 Carbon Dioxide 25.8 mmol/L (21-32) 07/02/25 05:42 BUN 15 mg/dL (7-18) 07/02/25 05:42 Creatinine 1.78 mg/dL (0.55-1.02) H 07/02/25 05:42 Est GFR (MDRD) Af Amer 36 (>60) L 07/02/25 05:42 Est GFR (MDRD) Non-Af 29 (>60) L 07/02/25 05:42 Glucose 116 mg/dL (65-99) H 07/02/25 05:42 POC Glucose (mg/dL) 116 mg/dL (65-99) H 07/02/25 06:01 Calcium 8.6 mg/dL (8.5-10.1) 07/02/25 05:42 Corrected Calcium 9.3 mg/dL (8.5-10.1) 07/02/25 05:42 Magnesium 1.9 mg/dL (2.0-2.9) L 07/02/25 05:42 Total Bilirubin 0.50 mg/dL (0.2-1.0) 07/02/25 05:42 AST 39 Units/L (15-37) H 07/02/25 05:42 ALT 30 Units/L (12-78) 07/02/25 05:42 Alkaline Phosphatase 38 Units/L (46-116) L 07/02/25 05:42 Total Protein 6.6 g/dL (6.4-8.2) 07/02/25 05:42 Albumin 3.1 g/dL (3.4-5.0) L 07/02/25 05:42 Globulin 3.5 g/dL (2.5-4.5) 07/02/25 05:42 Albumin/Globulin Ratio 0.9 Ratio (1.1-2.1) L 07/02/25 05:42 Specimen Type Clean catch urine 06/28/25 19:09 Urine Color Yellow (YELLOW) 06/28/25 19:09 Urine Appearance Clear (CLEAR) 06/28/25 19:09 Urine pH 6.0 (5.0 - 8.0) 06/28/25 19:09 Ur Specific [place] 1.020 (1.000-1.030) 06/28/25 19:09 Urine Protein 3+ (NEGATIVE) 06/28/25 19:09 Urine Glucose (UA) Negative (NEGATIVE) 06/28/25 19:09 Urine Ketones Negative (NEGATIVE) 06/28/25 19:09 Urine Blood Negative (NEGATIVE) 06/28/25 19:09 Urine Nitrite Negative (NEGATIVE) 06/28/25 19:09 Urine Bilirubin Negative (NEGATIVE) 06/28/25 19:09 Urine Urobilinogen Normal (NORMAL) 06/28/25 19:09 Ur Leukocyte Esterase Negative (NEGATIVE) 06/28/25 19:09 Urine RBC 0-2 /HPF (0-3) 06/28/25 19:09 Urine WBC None seen /HPF (0-5) 06/28/25 19:09 Ur Squamous Epith Cells Moderate /HPF (NEGATIVE) 06/28/25 19:09 Urine Bacteria Negative /HPF (NEGATIVE) 06/28/25 19:09 Granular Casts Rare /LPF (NEGATIVE) 06/28/25 19:09 Ur Culture Indicated? No/not indicated 06/28/25 19:09 Blood Type O POSITIVE 06/29/25 07:20 Antibody Screen Negative 06/29/25 07:20 Crossmatch See Detail 06/29/25 07:20 Plan (1) GI (gastrointestinal bleed): Status: Acute Qualifiers: GI bleed type/associated pathology: unspecified gastrointestinal hemorrhage type Qualified Code(s): K92.2 - Gastrointestinal hemorrhage, unspecified (2) AVM (arteriovenous malformation): Status: Chronic (3) Anemia: Status: Chronic Qualifiers: Anemia type: unspecified type Qualified Code(s): D64.9 - Anemia, unspecified (4) Hypertension: Status: Chronic Qualifiers: Hypertension type: primary hypertension Qualified Code(s): I10 - Essential (primary) hypertension (5) Atrial fibrillation: Status: Chronic Qualifiers: Atrial fibrillation type: unspecified Qualified Code(s): I48.91 - Unspecified atrial fibrillation (6) Hyperlipidemia: Status: Chronic Qualifiers: Hyperlipidemia type: mixed hyperlipidemia Qualified Code(s): E78.2 - Mixed hyperlipidemia (7) CKD (chronic kidney disease): Status: Chronic Qualifiers: Chronic kidney disease stage: unspecified stage Qualified Code(s): N 18.9 - Chronic kidney disease, unspecified
[2025-07-02] MEDS: NS 1,000 ML IV 1,000 ML ONE (12:00)
[2025-07-02] MEDS: NS 1,000 ML IV 150 ML IV PRN (12:05)
[2025-07-02] MEDS: XYLOCAINE 2 % (PLAIN) ONE (12:08)
[2025-07-02] MEDS: DIPRIVAN VIAL 20 ML ONE (12:08)
[2025-07-02] MEDS: DIPRIVAN VIAL 140 ML IVP PRN (12:12)
[2025-07-02] MEDS: XYLOCAINE 2 % (PLAIN) IVP PRN (12:12)
[2025-07-02 13:36] VITALS: BP 108/64; PULSE 89; RESP 21; TEMP 98.2; O2SAT 98
== END 2025-07-02 13:40 | disposition home health service (06) ==
LOC: MED/SURG 17:25 → ER 17:25 → MED/SURG 23:15
PROVIDERS: ADMIT Internal Medicine; ATTEND Internal Medicine
DX: I25.810 Atherosclerosis of coronary artery bypass graft(s) without angina pectoris; R94.4 Abnormal results of kidney function studies; I10 Essential (primary) hypertension; N18.9 Chronic kidney disease, unspecified; Z79.899 Other long term (current) drug therapy; Q27.39 Arteriovenous malformation, other site; K92.2 Gastrointestinal hemorrhage, unspecified; E11.65 Type 2 diabetes mellitus with hyperglycemia; R53.1 Weakness; N18.4 Chronic kidney disease, stage 4 (severe); E83.51 Hypocalcemia; K57.30 Diverticulosis of large intestine without perforation or abscess without bleeding; K64.2 Third degree hemorrhoids; I12.9 Hypertensive chronic kidney disease with stage 1 through stage 4 chronic kidney disease, or unspecified chronic kidney disease; D64.89 Other specified anemias; Z95.2 Presence of prosthetic heart valve; R41.0 Disorientation, unspecified; I48.91 Unspecified atrial fibrillation; E78.2 Mixed hyperlipidemia